=== PATIENT | male | born 1955 | race Hispanic/Latino ===

== ENCOUNTER 2023-05-13 05:03 | Inpatient (IN) | payer OTHER, SELFPAY ==
--- OUTSIDE RECORDS SUMMARY | 2023-05-13 05:05 | XMS REPORT | Continuity of Care Document ---
:[address] [facility] t Address [address] [place] [address] Care Team Providers Name Role Phone Jackson Montgomery Attending Clinician Unavailable Jackson Montgomery Admitting Clinician Unavailable Payers Payer Name Policy Type Policy Number Effective Date Expiration Date S ource Problems This patient has no known problems. Allergies, Adverse Reactions, Alerts This patient has no known allergies or adverse reactions. Medications This patient has no known medications. Procedures This patient has no known procedures. Encounters Start End Encounter Admission Attending Care Care Encounter Source Date/Time Date/Time Type Type Clinicians Facility Department ID 2020-08-15 Inpatient MARLIN Montgomery Arianne [id number] [facility] 13:00:00 [facility] 19 [facility] 2022-04-18 2022-04-18 Outpatient MARLIN Montgomery [id number] [facility] 15:27:00 15:27:00 [facility] 68 [facility] Results Test Description Test Time Test Comments Results Result [facility] e Comments - DUP EXTRACRANIAL 2020-08-15 [facility] 14:15:[address] [facility] : 1955 Sex: M Emmett bullock Name: JAYJAY SILVA Unit No: [id number] EXAMS: CPT: [id number] DUP EXTRACRANIAL CHARISSE 82058 BILATERAL CAROTID ARTERY ULTRASOUND AND DUPLEX IMAGING REPORT CONCLUSIONS: 1. Normal carotid artery ultrasound and spectrum analysis bilaterally. 2. There is no evidence of any significant areas of stenosis, and the spectrum analysis reveals no evidence of flow turbulence. 3. The vertebral artery flow is a normal antegrade pattern bilaterally. HISTORY AND INDICATIONS FOR THE STUDY: This study is performed for the evaluation of the presence and extent of carotid atherosclerotic disease. COMPARISON STUDY: No studies are available for comparison TECHNICAL NOTE: technologist development: Iris Johns RVT Following the Vascular Lab Protocol, real time ultrasound and color duplex imaging was performed to evaluate the Right and Left Carotid arteries. FINDINGS BY ULTRASOUND DUPLEX IMAGING AND SPECTRAL ANALYSIS: RIGHT CAROTID: 1. There are no measurable areas of stenosis in the right common carotid artery, right carotid bulb, or in the right internal carotid artery. 2. The spectrum analysis reveals no evidence of flow turbulence or hemodynamically significant lesions in the right carotid system. 3. The ICA/CCA velocity ratio is 0.7. LEFT CAROTID: 1. There are no measurable areas of stenosis in the left common carotid artery, the left carotid bulb, or in the left internal carotid artery. 2. The spectrum analysis reveals no evidence of flow turbulence or hemodynamically significant lesions in the left carotid system. 3. The ICA/CCA velocity ratio is 1.2. VERTEBRAL ARTERIES: Normal antegrade vertebral artery flow bilaterally. at 1415 Reported and signed by: LEON LI MD Name: JAYJAY SILVA [facility] Phys: Jackson Bernard MD [address] : 1955 Age: 65 Sex: M [place], [place] [address] Loc: N.[facility] Exam Date: 08/15/2020 Status: REG CLI PH: FAX: PAGE 1 Signed Report (CONTINUED) Patient Name: JAYJAY SILVA Unit No: [id number] EXAMS: CPT: [id number] DUP EXTRACRANIAL CHARISSE 35812 (Continued) CC: Jackson Montgomery MD Technologist: Iris Marquez Probe: Trscr Dt/Tm: 08/15/2020 (1415) by:QuianaHR Orig Print D/T: S: 08/15/2020 (1418) BATCH NO: N/A Name: JAYJAY SILVA [facility] Phys: Jackson Bernard MD [address] : 1955 Age: 65 Sex: M [place], [place] [address] Loc: N.N Exam Date: 08/15/2020 Status: REG CLI PH: FAX: PAGE 2 Signed Report
[2023-05-13 05:32] LABS: Absolute Lymphocytes (CBC) 2.1 K/uL (0.7-4.9); Hematocrit 44.5 % (39.6-49.0); Lymphocytes % 19.9 % (15.3-44.8); MPV 10.7 fL (7.6-11.3); Platelets 190 thou/uL (152-406); RBC Red Blood Cell Count 4.83 M/uL (4.33-5.43)
[2023-05-13] MEDS ORDERED: ASPIRIN 81 MG CHEWABLE TABLET ONE (05:32)
[2023-05-13] MEDS ORDERED: NITROGLYCERIN 0.4 MG/TAB SL ONE (05:32)
[2023-05-13 05:47] LABS: Albumin 3.6 g/dL (3.4-5.0); Bilirubin Direct 0.1 mg/dL (0-0.2); Bilirubin Indirect, Calculated 0.2 mg/dL (0.2-0.8); Bilirubin Total 0.3 mg/dL (0.2-1.0); Magnesium 1.8 mg/dL (1.6-2.4); Potassium 3.9 mEq/L (3.5-5.1); Protein, Total 7.3 g/dL (6.4-8.2); Troponin High Sensitivity 57.6 pg/mL (<58.9)
--- NOTE | 2023-05-13 06:28 | EDPHYS ---
Physician Documentation [facility] Name: Farhan Boyer Jr Age: 68 yrs Sex: Male : 1955 Arrival Date: 05/13/2023 Time: 05:03 Bed 8 Private MD: ED Physician Maynor Baires HPI: 05/13 05:45 This 68 yrs old Male presents to ER via Ambulatory with complaints of Chest rt Pain. 05:45 Patient presents to the ED with chest pain, substernal. Is been going on since about 10 rt PM, but, he states that is worsened today. The patient ports mild shortness of breath, denies other acute complaints at this time. Symptoms are moderate severity, aching nature, no other aggravating alleviating factors.. Historical: - Allergies: 05:16 No Known Allergies; vc1 - PMHx: 05:16 Diabetes - NIDDM; Hypertension; Hypothyroidism; Hypercholesterolemia; vc1 - PSHx: 05:16 None; vc1 - Immunization history:: Client reports receiving the 2nd dose of the Covid vaccine. - Social history:: Smoking status: Patient/guardian denies using tobacco, but has a distant history of tobacco abuse. - Family history:: not pertinent. ROS: 05:45 Constitutional: Negative for fever, chills, and weight loss, Abdomen/GI: Negative for rt abdominal pain, nausea, vomiting, diarrhea, and constipation. 05:45 Skin: Negative for injury, rash, and discoloration, Neuro: Negative for headache, weakness, numbness, tingling, and seizure, Psych: Negative for depression, anxiety, suicide ideation, homicidal ideation, and hallucinations. 05:45 Cardiovascular: Positive for chest pain, Negative for edema. 05:45 Respiratory: Positive for shortness of breath, Negative for cough. Exam: 05:45 Constitutional: This is a well developed, well nourished patient who is awake, alert, rt and in no acute distress. Head/Face: Normocephalic, atraumatic. Chest/axilla: Normal chest wall appearance and motion. Nontender with no deformity. No lesions are appreciated. Cardiovascular: Regular rate and rhythm with a normal S1 and S2. No gallops, murmurs, or rubs. Normal PMI, no JVD. No pulse deficits. Respiratory: Lungs have equal breath sounds bilaterally, clear to auscultation and percussion. No rales, rhonchi or wheezes noted. No increased work of breathing, no retractions or nasal flaring. Abdomen/GI: Soft, non-tender, with normal bowel sounds. No distension or tympany. No guarding or rebound. No evidence of tenderness throughout. Skin: Warm, dry with normal turgor. Normal color with no rashes, no lesions, and no evidence of cellulitis. MS/ Extremity: Pulses equal, no cyanosis. Neurovascular intact. Full, normal range of motion. Neuro: Awake and alert, GCS 15, oriented to person, place, time, and situation. Cranial nerves II-XII grossly intact. Motor strength 5/5 in all extremities. Sensory grossly intact. Cerebellar exam normal. Normal gait. Psych: Awake, alert, with orientation to person, place and time. Behavior, mood, and affect are within normal limits. 05:45 ECG was reviewed by the Attending Physician. Vital Signs: 05:14 BP 167 / 77; Pulse 69; Resp 14; Temp 98.2; Pulse Ox 100% ; Weight 107.5 kg; Height 5 vc1 ft. 7 in. ; Pain 7/10; 05:16 BP 167 / 77; Pulse 67; Resp 19; Pulse Ox 99% on R/A; kd3 05:27 BP 167 / 77; Pulse 66; Resp 16; Pulse Ox 98% on R/A; kd3 06:51 BP 143 / 63; Pulse 63; Resp 19; Pulse Ox 98% on R/A; kd3 08:59 BP 128 / 64; Pulse 61; Resp 18; Pulse Ox 95% on R/A; ld1 05:14 Body Mass Index 37.12 (107.50 kg, 170.18 cm) vc1 05:14 Pain Scale: Adult vc1 MDM: 05:16 Patient medically screened. rt 06:28 Differential diagnosis: abnormal EKG, acute myocardial infarction, pneumonia, rt pneumothorax. HEART Score: History: Highly Suspicious (2), ECG: Non specific repolarization disturbance / LBTB / PM (1), Age: > or = 65 years (2), Risk Factors: 1 or 2 risk factors (1), Troponin: < or = 1 x Normal Limit (0), Total Score = 6. The patient was given aspirin in the Emergency Department. Data reviewed: vital signs, nurses notes, lab test result(s), EKG, radiologic studies. Consideration of Admission/Observation Patient was admitted/placed on observation. Management of patient was discussed with the following: Hospitalist: Agrees to admit. I considered the following discharge prescriptions or medication management in the emergency department Medications were administered in the Emergency Department. See MAR. Independent interpretation of the following test(s) in the Emergency Department X-Ray: My interpretation is No consolidation seen on interpretation of the x-ray images. Test considered but Not performed: CT: Low suspicion for PE, CT angiogram not indicated. Care significantly affected by the following chronic conditions: Diabetes, Hypertension. Counseling: I had a detailed discussion with the patient and/or guardian regarding: the historical points, exam findings, and any diagnostic results supporting the discharge/admit diagnosis, lab results, radiology results, the need for further work-up and treatment in the hospital. Response to treatment: the patient's symptoms have markedly improved after treatment. 05/13 05:17 Order name: Basic Metabolic Panel; Complete Time: 05:48 rt 05/13 05:17 Order name: CBC with Diff; Complete Time: 05:48 rt 05/13 05:17 Order name: LFT's; Complete Time: 05:48 rt 05/13 05:17 Order name: Magnesium; Complete Time: 05:48 rt 05/13 05:17 Order name: NT PRO-BNP; Complete Time: 05:48 rt 05/13 05:17 Order name: Troponin HS; Complete Time: 05:48 rt 05/13 05:17 Order name: XRAY Chest (1 view) rt 05/13 05:17 Order name: EKG; Complete Time: 05:17 rt 05/13 05:17 Order name: Cardiac monitoring; Complete Time: 05:21 rt 05/13 05:17 Order name: EKG - Nurse/Tech; Complete Time: 05:21 rt 05/13 05:17 Order name: IV Saline Lock; Complete Time: 05: rt 05/13 05:17 Order name: Labs collected and sent; Complete Time: 05:24 rt 05/13 05:17 Order name: O2 Per Protocol; Complete Time: 05:21 rt 05/13 05:17 Order name: O2 Sat Monitoring; Complete Time: 05:21 rt EC:45 Rate is 69 beats/min. Rhythm is regular, Normal Sinus Rhythm with No ectopy. QRS [place] rt is Normal. WA interval is normal. QRS interval is normal. QT interval is normal. No Q waves. T waves are Normal. No ST changes noted. Interpreted by me. Administered Medications: 05:24 Drug: Aspirin PO Chewable Tablet 324 mg Route: PO; kd3 06:52 Follow up: Response: No adverse reaction kd3 05:27 Drug: Nitroglycerin Sublingual 0.4 mg Route: Sublingual; kd3 06:51 Follow up: Response: No adverse reaction; Pain is decreased kd3 Disposition Summary: 05/13/23 06:27 Hospitalization Ordered Hospitalization Status: Observation rt Provider: Tyler Means rt Location: Telemetry/MedSurg (observation) rt Condition: Stable rt Problem: new rt Symptoms: are resolved rt Bed/Room Type: Standard rt Room Assignment: 221(05/13/23 09:32) bd Diagnosis - Chest pain, unspecified rt Forms: - Medication Reconciliation Form rt - SBAR form rt - Leadership Thank You Letter rt Signatures: Dispatcher [employer] Emily Banda Kyli RN RN kd3 Alma Aguilar RN RN vc1 Maynor Baires MD MD rt Corrections: (The following items were deleted from the chart) 09:32 06:27 rt bd
--- NOTE | 2023-05-13 06:28 | ER ---
Nurse's Notes [facility] Name: Farhan Boyer Jr Age: 68 yrs Sex: Male : 1955 Arrival Date: 05/13/2023 Time: 05:03 Bed 8 Private MD: Diagnosis: Chest pain, unspecified Presentation: 05/13 05:14 Chief complaint: Patient states: I started having chest pain around 10:30 or 11 and vc1 it's just getting worse. It is a lot of pressure, it feels like something heavy is sitting on my chest. Coronavirus screen: Vaccine status: Patient reports receiving the 2nd dose of the covid vaccine. Plus one booster, [email or web address] Client denies travel out of the [place] in the last 14 days. At this time, the client does not indicate any symptoms associated with coronavirus-19. Ebola Screen: Patient negative for fever greater than or equal to 101.5 degrees Fahrenheit, and additional compatible Ebola Virus Disease symptoms Patient denies exposure to infectious person. Patient denies travel to an Ebola-affected area in the 21 days before illness onset. No symptoms or risks identified at this time. Initial Sepsis Screen: Does the patient meet any 2 criteria? No. Patient's initial sepsis screen is negative. Does the patient have a suspected source of infection? No. Patient's initial sepsis screen is negative. Risk Assessment: Do you want to hurt yourself or someone else? Patient reports no desire to harm self or others. Onset of symptoms was May 12, 2023 at 22:30. 05:14 Method Of Arrival: Ambulatory vc1 05:14 Acuity: SUE 3 vc1 Triage Assessment: 05:17 General: Appears distressed, uncomfortable, obese, Behavior is cooperative, appropriate vc1 for age. Pain: Complains of pain in mid-sternal area Pain radiates to neck Pain currently is 7 out of 10 on a pain scale. Quality of pain is described as Pain began gradually, 10:30-11:00 Is continuous, Noted to be grimacing, guarding, Also complains of nausea. EENT: No deficits noted. No signs and/or symptoms were reported regarding the EENT system. Neuro: Level of Consciousness is awake, alert, obeys commands, Oriented to person, place, time, situation, Appropriate for age. Cardiovascular: Reports chest pain, nausea, shortness of breath, Chest pain is described as severe, quality is heaviness, pressure. Respiratory: Reports shortness of breath. GI: No deficits noted. No signs and/or symptoms were reported involving the gastrointestinal system. : No deficits noted. No signs and/or symptoms were reported regarding the genitourinary system. Derm: No deficits noted. No signs and/or symptoms reported regarding the dermatologic system. Musculoskeletal: No deficits noted. No signs and/or symptoms reported regarding the musculoskeletal system. Historical: - Allergies: 05:16 No Known Allergies; vc1 - PMHx: 05:16 Diabetes - NIDDM; Hypertension; Hypothyroidism; Hypercholesterolemia; vc1 - PSHx: 05:16 None; vc1 - Immunization history:: Client reports receiving the 2nd dose of the Covid vaccine. - Social history:: Smoking status: Patient/guardian denies using tobacco, but has a distant history of tobacco abuse. - Family history:: not pertinent. Screenin:[facility] ED Fall Risk Assessment (Adult) History of falling in the last 3 months, vc1 including since admission No falls in past 3 months (0 pts) Confusion or Disorientation No (0 pts) Intoxicated or Sedated No (0 pts) Impaired Gait No (0 pts) Mobility Assist Device Used No (0 pt) Altered Elimination No (0 pt) Score/Fall Risk Level 0 - 2 = Low Risk Oriented to surroundings, Maintained a safe environment, Educated pt \\T\\ family on fall prevention, incl call for assistance when getting out of bed. Abuse screen: Denies threats or abuse. Nutritional screening: No deficits noted. Tuberculosis screening: No symptoms or risk factors identified. Assessment: 05:27 General: Appears uncomfortable, Behavior is calm, cooperative. Pain: Complains of pain kd3 in chest and mid-sternal area. Neuro: Level of Consciousness is awake, alert, obeys commands, Oriented to person, place, time, situation. Cardiovascular: Patient's skin is warm and dry. Respiratory: Airway is patent Trachea midline Respiratory effort is even, unlabored, Respiratory pattern is regular, symmetrical. 07:30 Reassessment: Patient appears in no apparent distress at this time. Patient and/or ph family updated on plan of care and expected duration. Pain level reassessed. Patient is alert, oriented x 3, equal unlabored respirations, skin warm/dry/pink. Patient denies pain at this time. 09:56 Reassessment: Called 2nd floor multiple times - no answer to phone. 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 Received nurse phone number, called RN. RN unavailable "Changing briefs at the moment." Will call again in 10 minutes. 10:14 Reassessment: Patient is alert, oriented x 3, equal unlabored respirations, skin ld1 warm/dry/pink. Vital Signs: 05:14 BP 167 / 77; Pulse 69; Resp 14; Temp 98.2; Pulse Ox 100% ; Weight 107.5 kg; Height 5 vc1 ft. 7 in. ; Pain 7/10; 05:16 BP 167 / 77; Pulse 67; Resp 19; Pulse Ox 99% on R/A; kd3 05:27 BP 167 / 77; Pulse 66; Resp 16; Pulse Ox 98% on R/A; kd3 06:51 BP 143 / 63; Pulse 63; Resp 19; Pulse Ox 98% on R/A; kd3 08:59 BP 128 / 64; Pulse 61; Resp 18; Pulse Ox 95% on R/A; ld1 05:14 Body Mass Index 37.12 (107.50 kg, 170.18 cm) vc1 05:14 Pain Scale: Adult vc1 ED Course: 05:03 Patient arrived in ED. ag3 05:04 Maynor Baires MD is Attending Physician. rt 05:16 Lilly Gonzalez, KEENAN is Primary Nurse. kd3 05:16 Triage completed. vc1 05:16 Inserted saline lock: 18 gauge in right antecubital area, using aseptic technique. kd3 Blood collected. 05:20 Arm band placed on right wrist. vc1 05:20 Patient has correct armband on for positive identification. Placed in gown. Bed in low vc1 position. Call light in reach. Adult w/ patient. Client placed on continuous cardiac and pulse oximetry monitoring. NIBP monitoring applied. 05:21 Patient maintains SpO2 saturation greater than 95% on room air. vc1 05:27 Basic Metabolic Panel Sent. kd3 05:27 CBC with Diff Sent. kd3 05:27 LFT's Sent. kd3 05:27 Magnesium Sent. kd3 05:27 NT PRO-BNP Sent. kd3 05:27 Troponin HS Sent. kd3 05:28 XRAY Chest (1 view) In Process Unspecified. EDMS 06:27 Tyler Means is Hospitalizing Provider. rt 09:15 Warm blanket given. mm9 10:14 No provider procedures requiring assistance completed. Patient admitted, IV remains in ld1 place. Administered Medications: 05:24 Drug: Aspirin PO Chewable Tablet 324 mg Route: PO; kd3 06:52 Follow up: Response: No adverse reaction kd3 05:27 Drug: Nitroglycerin Sublingual 0.4 mg Route: Sublingual; kd3 06:51 Follow up: Response: No adverse reaction; Pain is decreased kd3 Medication: 05:20 VIS not applicable for this client. vc1 Outcome: 06:27 Decision to Hospitalize by Provider. rt 10:14 Admitted to Med/surg accompanied by tech, via wheelchair, room 221. ld1 10:14 Condition: stable 10:14 Instructed on the need for admit. 10:19 Patient left the ED. ld1 Signatures: Dispatcher [employer] EDNJ Taisha Cotton RN RN Amara Yu ag3 Gloria Pantoja RN RN ld1 Lilly Gonzalez RN RN kd3 Alma Aguilar RN RN 1 Wendy Zepeda mm9 Maynor Baires MD MD rt
--- NOTE | 2023-05-13 08:10 | P.HP ---
Certification for Inpatient Patient admitted to: Observation With expected LOS: <2 Midnights Practitioner: I am a practitioner with admitting privileges, knowledge of patient current condition, hospital course, and medical plan of care. Services: Services provided to patient in accordance with Admission requirements found in Title 42 Section 412.3 of the Code of Federal Regulations Patient History Date of Service: 05/13/23 Reason for admission: Chest pressure History of Present Illness: 68-year-old gentleman with a history of hypertension, diabetes, hyperlipidemia and hypothyroidism presented to the emergency department with a complaint of chest pressure off onset and it this morning. Patient reports experiencing chest pressure, radiating to the throat of onset early this morning, denied chest pain, associated with shortness of breath, intensity about 5/10, relieved by sublingual nitroglycerin which was given in the ED. Initial troponin in the ED negative, EKG showed no ischemic changes, chest x-ray showed no acute disease. He reports significant family history of coronary artery disease. Patient with high risk factors for CAD. He was symptom-free during my e xamination for admission. Patient is placed on observation for ACS rule out. Allergies No Known Allergies Allergy (Unverified 02/18/15 14:20) Home Medications: Atorvastatin Calcium 1 tab PO DAILY 05/13/23 Cholecalciferol (Vitamin D3) [Dialyvite Vitamin D3 Max] 1 cap PO SEECOM 05/13/23 Empagliflozin [Jardiance] 1 tab PO DAILY 05/13/23 Furosemide 1 tab PO DAILY 05/13/23 Glimepiride 1 tab PO DAILY 05/13/23 Insulin Detemir [Levemir Flexpen] 5 units SQ DAILY 05/13/23 Levothyroxine Sodium 1 tab PO DAILY 05/13/23 Losartan Potassium 1 tab PO DAILY 05/13/23 Metformin HCl 1 tab PO BID 05/13/23 - Past Medical/Surgical History -: Hypertension -: DM type [id number] -: Hyperlipidemia -: Hypothyroidism - Family History Father -: Diabetes Mother -: Heart disease - Social History Smoking Status: Former smoker Alcohol use: No CD- Drugs: No Place of Residence: Home Review of Systems Other: Patient denied any cough or wheezing. He denied any fever. He denied abdominal pain or nausea vomiting or diarrhea. Except as documented, all other systems reviewed and negative. Physical Examination - Physical Exam General: Alert, In no apparent distress, Oriented x3, Obese HEENT: Mucous membr. moist/pink Neck: JVD not distended Respiratory: Clear to auscultation bilaterally, Normal air movement Cardiovascular: No edema, Normal pulses, Normal S1 S2 Capillary refill: <2 Seconds Gastrointestinal: Normal bowel sounds, Soft and benign, Non-distended, No tenderness Musculoskeletal: No swelling, No tenderness Integumentary: No rashes, No cyanosis Neurological: Normal speech, Normal strength at 5/5 x4 extr, Cranial nerves 3-12 intact Lymphatics: No axilla or inguinal lymphadenopathy - Studies Laboratory Data (last 24 hrs) 05/13/23 05/13/23 05:21 05:21 WBC 10.30 Hgb 14.6 Hct 44.5 Plt Count 190 Sodium 138 Potassium 3.9 BUN 18 Creatinine 0.95 Glucose 196 H Magnesium 1.8 Total Bilirubin 0.3 AST 16 ALT 24 Alkaline Phosphatase 120 H Assessment and Plan - Problems (Diagnosis) (1) Chest pain Current Visit: Yes Status: Acute (2) Essential hypertension Current Visit: Yes Status: Acute (3) Hyperlipidemia Current Visit: Yes Status: Acute (4) Diabetes mellitus type 2 in obese Current Visit: Yes Status: Acute (5) Hypothyroidism Current Visit: Yes Status: Acute - Plan Chest pain Typical chest pain. High CAD risk factors. Placed under observation on the medical floor Trend troponin Telemetry Obtain echocardiogram. Cardiology consult Stress test if troponin trend negative. Aspirin, metoprolol, Lipitor. NTG as needed. DM type II Insulin sliding scale Resume home dose Lantus insulin Hold metformin and glimepiride. Hold Jardiance for now. Essential hypertension/hypothyroidism Continue home medications. DVT prophylaxis: Lovenox. - Advance Directives Does patient have a Living Will: No Does patient have a Durable POA for Healthcare: No
[2023-05-13 10:47] VITALS: BMI 37.0
[2023-05-13] MEDS ORDERED: NITROGLYCERIN 0.4 MG/TAB SL PRN (10:47)
[2023-05-13] MEDS: ASPIRIN EC 81 MG TAB PO SCH (10:47)
[2023-05-13] MEDS ORDERED: MORPHINE 2 MG/ML SYR IV PRN (10:47)
[2023-05-13] MEDS ORDERED: ENOXAPARIN 40 MG/0.4 ML SQ SCH (10:47)
[2023-05-13] MEDS ORDERED: ACETAMINOPHEN 500 MG TAB PO PRN (10:47)
[2023-05-13] MEDS: INSULIN -REGULAR HUMAN 50 UNIT/0.5 ML ML SQ SCH ×3 (11:30→20:59)
[2023-05-13] MEDS ORDERED: PNEUMOCOCCAL VACCINE 0.5 ML IMVAC ONE (12:00)
[2023-05-13] MEDS: METOPROLOL TAR 25 MG TAB PO SCH ×2 (12:05→21:04)
--- NOTE | 2023-05-13 13:09 | EKG ---
Test Date: 2023-05-13 Test Time: 05:09:19 Heavy Duty Press Operator: KORINA MEASUREMENT RESULTS: Intervals: Rate: 69 KS: 138 QRSD: 80 QT: 372 QTc: 398 Buhl: P: 41 KS: 138 QRS: 42 T: 14 INTERPRETIVE STATEMENTS: Sinus rhythm with marked sinus arrhythmia Possible Left atrial enlargement Borderline ECG No previous ECG available for comparison Electronically Signed On 05-13-23 13:09:05 CDT by Parker Charlton
[2023-05-13] MEDS ORDERED: CHOLECALCIFEROL PO SCH (14:45)
--- NOTE | 2023-05-13 14:59 | RAD REPORT ---
EXAM DESCRIPTION: RAD - Chest Single View - 05/13/2023 5:26 am CLINICAL HISTORY: The patient is 68 years old and is Male; CHEST PAIN TECHNIQUE: Frontal view of the chest. COMPARISON: No relevant prior studies available. FINDINGS: Lungs: Unremarkable. No consolidation. Pleural space: Unremarkable. No pneumothorax. Heart: Unremarkable. Mediastinum: Unremarkable. Bones/joints: Unremarkable. IMPRESSION: No acute findings in the chest. Electronically signed by: Yrn Carpenetr MD 05/13/2023 5:35 AM CDT Due to temporary technical issues with the PACS/Fluency reporting system, reports are being signed by the in house radiologist without review as a courtesy to ensure prompt reporting. The interpreting r adiologist is fully responsible for the content of the report.
[2023-05-13 16:40] LABS: Troponin High Sensitivity 712.6 pg/mL (<58.9)
--- NOTE | 2023-05-13 19:45 | CON ---
Date of Consultation: 05/13/2023 Reason For Consultation: Non-ST elevation myocardial infarction. History Of Present Illness: A 68-year-old male, history diabetes, dyslipidemia, hypertension, presen heriberto to the emergency room with chest heaviness, started earlier this morning, felt nauseated, and the n some discomfort in the epigastrium area. Thought it was indigestion and then he felt significant h eaviness in his chest that radiated to his neck and his pain was relieved completely by nitroglycerin . The patient does not have any further chest pain since hospitalization, doing clinically well. Past Medical History: Diabetes, hypertension, dyslipidemia, hypothyroidism. Medications: Refer to reconciliation sheet for detailed list. Allergies: NO KNOWN DRUG ALLERGIES. Family History: No premature coronary artery disease or cancer. Social History: He does not smoke or drink. Does not use any drugs. Review of Systems: All systems reviewed and they were negative except what mentioned in HPI. Physical Examination: Vital Signs: Reviewed. Head and Neck: Pupils are equal, reactive to light. Intact eye movements. No JVD. No cervical lym phadenopathy. Neck is supple. Thyroid is not enlarged. Lungs: Clear to auscultation bilaterally. No rhonchi, wheezing, or crackles. No accessory muscle u se. Heart: Regular rate and rhythm. No extra sounds. Abdomen: Soft, nontender. Bowel sounds positive. No organomegaly. No masses or hernia. No rigidi ty or rebound. Extremities: No edema, clubbing, or cyanosis. Intact pulses. Skin: No rash. Neurologic: Alert, awake, oriented x3. No acute focal deficits appreciated. Investigations: Troponin initial one was 57, second one was 712. BUN 18, creatinine 0.95. Assessment And Recommendations: 1.Non-ST elevation myocardial infarction, typical; chest pain with elevated troponin. Chest pain is resolved now. Continue aspirin and Lovenox 1 mg/kg subcu q.12 hours, after tonight's dose to hold, planning for coronary angiogram tomorrow afternoon. Agree with beta-ronaldo and obtain an echo and c ontinue baby aspirin. 2.Hypertension. Blood pressure is controlled. Continue current management. 3.Diabetes. Start the patient on high potency statin like Lipitor 40 mg at bedtime and monitor jose armando garcía SR/MAYRA Voice ID: [id number] Report ID: [id number]
[2023-05-13] MEDS ORDERED: Enoxaparin 120 MG/0.8 ML SYR SQ SCH (21:00)
[2023-05-13] MEDS: ATORVASTATIN 40 MG TAB PO SCH (21:05)
[2023-05-14 05:03] LABS: Absolute Lymphocytes (CBC) 2.3 K/uL (0.7-4.9); Hematocrit 44.5 % (39.6-49.0); Lymphocytes % 18.9 % (15.3-44.8); MCV 91.9 fL (80-100); MPV 12.4 fL (7.6-11.3); Platelets 194 thou/uL (152-406); RBC Red Blood Cell Count 4.84 M/uL (4.33-5.43)
[2023-05-14 05:07] LABS: Potassium 3.7 mEq/L (3.5-5.1)
[2023-05-14] MEDS: LEVOTHYROXINE SOD 0.025 MG TAB PO SCH (06:04)
--- NOTE | 2023-05-14 07:20 | P.PN ---
Date of Service: 05/14/23 Subjective: Intermittent chest pain remains, improving no acute events overnight waiting for heart cath ROS: 10 point ROS as noted above, otherwise negative Physical Exam: GEN: Alert, oriented, NAD HEENT: Normal conjunctiva, sclera anicteric CV: Regular rate and rhythm, no edema Pulm: Nonlabored respirations on room air ABD: Soft, epigastric abdominal tenderness, nondistended, + ventral hernia Neuro: Normal speech, normal affect vitals reviewed Problem List: Chest pain Hypertension Hyperlipidemia Ventral hernia IDDM2 Hypothyroidism Chest pain High CAD risk factors. troponins elevated x3 - peak 2195 Monitor on telemetry Echo (05/13): 56% EF, mitral annular calcificaiton with mild MR, mild TR Cardiology consulted NPO for tentative heart cath today continue Aspirin, metoprolol, Lipitor. PRN nitroglycerin, PRN pain medication IDDM2 SSI. Resume home dose Lantus insulin Hold metformin and glimepiride. Hold Jardiance for now. Hypertension Hyperlipidemia Hypothyroidism ventral hernia Continue home medications. VTE: Lovenox Code: Full Dispo: Home in ~24hrs Pending heart cath today
--- NOTE | 2023-05-14 07:21 | ECHO ---
HEIGHT: 5 ft 7 in WEIGHT: 237 lb 0 oz DATE OF STUDY: 05/13/[address]: Tyler Means MD 2-DIMENSIONAL: YES M.MODE: YES DOPPLER: YES COLOR FLOW: YES TDS: PORTABLE: YES DEFINITY: BUBBLE STUDY: DIAGNOSIS: CHEST PAIN CARDIAC HISTORY: CATHERIZATION: SURGERY: PROSTHETIC VALVE: PACEMAKER: MEASUREMENTS (cm) DIASTOLIC (NORMALS) SYSTOLIC (NORMALS) IVSd 1.0 (0.6-1.2) LA Diam 3.7 (1.9-4.0) LVEF 56% LVIDd 4.6 (3.5-5.7) LVIDs 3.3 (2.0-3.5) %FS 29% LVPWd 1.0 (0.6-1.2) Ao Diam 2.9 (2.0-3.7) 2 DIMENSIONAL ASSESSMENT: RIGHT ATRIUM: NORMAL LEFT ATRIUM: NORMAL RIGHT VENTRICLE: NORMAL LEFT VENTRICLE: NORMAL TRICUSPID VALVE: MILD TRICUSPID REGURGITATION MITRAL VALVE: MITRAL ANNULAR CALCIFICATION WITH MILD MITRAL REGURGITATION PULMONIC VALVE: NORMAL AORTIC VALVE: NORMAL PERICARDIAL EFFUSION: NONE AORTIC ROOT: NORMAL LEFT VENTRICULAR WALL MOTION: NORMAL DOPPLER/COLOR FLOW: MILD MITRAL REGURGITATION. MILD TRICUSPID REGURGITATION COMMENTS: 1. NORMAL LEFT VENTRICULAR EJECTION FRACTION 55-60% 2. NORMAL WALL MOTION 3. MITRAL ANNULAR CALCIFICATION WITH MILD MITRAL REGURGITATION 4. MILD TRICUSPID REGURGITATION TECHNOLOGIST: STACEY VILLAGOMEZ
[2023-05-14] MEDS: INSULIN -REGULAR HUMAN 50 UNIT/0.5 ML ML SQ SCH ×4 (07:30→21:00)
[2023-05-14] MEDS: INSULIN GLARGINE 100 UNIT/ML SQ SCH (09:00)
[2023-05-14] MEDS ORDERED: INSULIN DETEMIR 100 UNIT/ML SQ SCH (09:00)
[2023-05-14] MEDS ORDERED: INSULN SQ SCH (09:00)
[2023-05-14 09:45] LABS: Protime INR 1.01
[2023-05-14] MEDS: ASPIRIN EC 81 MG TAB PO SCH (09:50)
[2023-05-14] MEDS: LOSARTAN POTASSIUM 50 MG TABLET PO SCH (09:50)
[2023-05-14] MEDS: METOPROLOL TAR 25 MG TAB PO SCH ×2 (09:50→21:00)
[2023-05-14] MEDS: FUROSEMIDE 20 MG TABLET PO SCH (10:35)
[2023-05-14] MEDS ORDERED: HEPA 1000U/500MLS 2,000 UNIT/1,000 ML BAG IV ONE (12:38)
[2023-05-14] MEDS ORDERED: LIDOCAINE 1% 20 ML MDV ONE (12:38)
[2023-05-14] MEDS ORDERED: FENTANYL CITR 100 MCG/2 ML ONE (12:41)
[2023-05-14] MEDS ORDERED: VERAPAMIL HCL 10 MG/4 ML VIAL IV ONE (12:42)
[2023-05-14] MEDS ORDERED: HEPARIN 5000 UNIT/ML 1 ML VIAL ONE (12:42)
[2023-05-14] MEDS ORDERED: MIDAZOLAM HCL 2 MG/2 ML INJ ONE (12:42)
[2023-05-14] MEDS ORDERED: HEPARIN 10,000 UNIT/10 ML VIAL IV ONE ×2 (12:42→15:36)
[2023-05-14] MEDS ORDERED: NITROGLYCERIN 100 MCG/ML SYR (for cath lab use only) IV ONE (12:43)
[2023-05-14] MEDS ORDERED: ATROPINE SULF 1 MG/10 ML SYR IV ONE (12:43)
[2023-05-14] MEDS ORDERED: NITROGLYCERIN/D5W 25 MG/250 ML BTL IV ONE (12:43)
[2023-05-14] MEDS ORDERED: CLOPIDOGREL 75 MG TABLET ONE (12:45)
[2023-05-14] MEDS ORDERED: TICAGRELOR 90 MG TABLET PO ONE (12:46)
[2023-05-14] MEDS ORDERED: ASPIRIN 325 MG TAB ONE (12:46)
[2023-05-14] MEDS ORDERED: NA CHLORIDE 0.9% 500 ML ONE (14:46)
--- NOTE | 2023-05-14 17:50 | PN ---
Date of Progress Note: 05/14/2023 Subjective: The patient was seen by bedside. Had no further episodes of chest pain since hospitaliz ation and his troponin peaked at 1159. Completely asymptomatic this morning with the exception of mi ld shortness of breath on exertion. Review of Systems: No chest pain. Positive shortness of breath, no exertion. No nausea, vomiting, diarrhea. No abdomi nal pain. No dysuria, polyuria, or urinary urgency. All other systems reviewed and they were negati ve. Physical Examination: Vital Signs: Reviewed. Head and Neck: Pupils are equal, reactive to light. Intact eye movements. No JVD. No cervical lym phadenopathy. Neck is supple. Thyroid is not enlarged. Lungs: Clear to auscultation bilaterally. No rhonchi, wheezing, or crackles. No accessory muscle u se. Heart: Regular rate and rhythm. No extra sounds. Abdomen: Soft, nontender. Bowel sounds positive. No organomegaly. No masses or hernia. No rigidi ty or rebound. Extremities: No edema, clubbing, or cyanosis. Intact pulses. Skin: No rash. Neurologic: Alert, awake, oriented x3. No acute focal deficits appreciated. Investigations: As outlined above, the troponin peaked at 1100 range. Assessment And Recommendations: 1.Non-ST elevation myocardial infarction. Coronary angiogram is planned for today and Braxton was eligio hernández. Continue aspirin, high-dose statin. 2.Heart failure, diastolic. Recommend low-dose diuretics, Lasix 40 mg daily and also to start low-d ose beta-ronaldo and low-dose JEAN-CLAUDE inhibitor due to the acute myocardial infarction. 3.Hypertension. Blood pressure is borderline elevated. Medication recommendation as outlined above . SR/MODL Voice ID: [id number] Report ID: [id number]
--- NOTE | 2023-05-14 18:05 | OP ---
Date of Procedure: 05/14/2023 Surgeon: CHANG VELÁZQUEZ Procedures Performed: 1.Selective coronary angiogram. 2.Left heart catheterization. 3.PCI for critical proximal LAD stenosis 99%, which is the culprit. I used 2.75 x 20 mm Synergy rosie g-eluting stent. Indication: Non-ST elevation myocardial infarction. Access: Right radial artery 6-Lao closed with TR band. Complications: None. Bleeding: Less than 50 mL. Description Of Procedure: After risks, benefits, alternatives were explained, the patient agreed to procedure and signed informed consent. The patient was brought into the cardiac catheterization [facility], prepped and draped in the usual sterile fashion. Then, I accessed right radial artery using pediatric micropuncture kit, placed 6-Lao Slender sheath and took 5-Lao Garrett 4.0 catheter into the aortic root, engaged the left main and could not engage the RCA. We then exchanged for a 6-Fren JR4 catheter and engaged the RCA, took standard views, and the catheter was pushed over the wire i nto the LV, measured the LVEDP and pullback did not record any gradient. Subsequently, we gave syste louis heparin to assure ACT level above 250 throughout the procedure. 180 Brilinta was given on the ta ble and the patient already was loaded with aspirin yesterday and given this morning. I took a 6-[facility] EBU3.5 guide with side holes into the aortic root and engaged the left main, took short Run-Throu gh wire into the left main, then the LAD and placed it distally in the LAD. Subsequently, I did a ba shannenon angioplasty using a 2.5 balloon to high pressure, vessel opened with SANTY-3 flow. It was a VERNA I-1 flow before the procedure and then I placed a 2.75 x 20 mm Synergy drug-eluting stent across the area of stenosis reducing the stenosis to 0% and re-establishing a SANTY-3 flow. After I removed the wire, final angiogram was satisfactory. Then, I removed the guide and removed the sheath, placed TR band with good hemostasis. During the exchange from the JR4 catheter to the EBU, the J-wire went into the LV and the patient had a very brief episode of ventricular fibrillation for less than 5 seconds. An unsynchronized 200 robbie les electrical cardioversion was performed and he converted immediately to sinus rhythm and the proce dure carried through without complications afterwards. The patient was sent to recovery in stable co ndition and has no symptoms. Findings: 1.Left main; it is normal, moderate size. 2.LAD; it is moderate size and tapers down to become small in the proximal segment before diagonal b ranches. There is an initially start at 80% stenosis and then 99% stenosis, status post successful b alloon angioplasty and PCI using 2.75 x 20 mm Synergy drug-eluting stent. The rest of the LAD is nor mal and the diagonal branch is normal. 3.Left circumflex is moderate size, normal. 4.RCA is the largest vessel probably vessel and dominant, has distal 30% to 40% stenosis. 5.LVEDP is slightly elevated at 18 mmHg. Conclusion: 1.Critical proximal LAD stenosis, which is the culprit of the IN, status post successful PCI as abov e. 2.Elevated LVEDP. 3.Moderate coronary artery disease elsewhere as above. Plan: 1.Brilinta, aspirin, and high-dose statin. 2.Recommend diuretics, Lasix for the next 24 hours and also start low-dose beta-ronaldo. SR/MODL Voice ID: [id number] Report ID: [id number]
[2023-05-14 18:20] VITALS: O2SAT 98
[2023-05-14] MEDS: ATORVASTATIN 40 MG TAB PO SCH (21:23)
[2023-05-14] MEDS ORDERED: TICAGRELOR 90 MG TABLET PO SCH (23:00)
[2023-05-15 03:48] LABS: Absolute Lymphocytes (CBC) 1.5 K/uL (0.7-4.9); Hematocrit 45.7 % (39.6-49.0); Lymphocytes % 14.7 % (15.3-44.8); MCV 91.4 fL (80-100); MPV 12.1 fL (7.6-11.3); Platelets 183 thou/uL (152-406)
[2023-05-15 03:55] LABS: Magnesium 1.7 mg/dL (1.6-2.4); Potassium 3.4 mEq/L (3.5-5.1)
[2023-05-15] MEDS: LEVOTHYROXINE SOD 0.025 MG TAB PO SCH (05:22)
[2023-05-15] MEDS ORDERED: CLOPIDOGREL 75 MG TABLET PO ONE ×2 (07:00→09:00)
[2023-05-15] MEDS: INSULIN -REGULAR HUMAN 50 UNIT/0.5 ML ML SQ SCH ×2 (07:30→12:28)
[2023-05-15] MEDS ORDERED: POTASSIUM CL SA 10 MEQ TAB PO ONE (08:18)
[2023-05-15] MEDS ORDERED: MAGNESIUM SULFATE 1 gm IVPB 1 GM/100 ML BAG IV ONE (08:18)
[2023-05-15] MEDS: FUROSEMIDE 20 MG TABLET PO SCH (09:13)
[2023-05-15] MEDS: INSULIN GLARGINE 100 UNIT/ML SQ SCH (09:13)
[2023-05-15] MEDS: ASPIRIN EC 81 MG TAB PO SCH (09:14)
[2023-05-15] MEDS: LOSARTAN POTASSIUM 50 MG TABLET PO SCH (09:14)
[2023-05-15] MEDS: METOPROLOL TAR 25 MG TAB PO SCH (09:14)
--- NOTE | 2023-05-15 10:32 | P.DS ---
Admission Date: 05/14/23 Discharge Date: 05/15/23 Disposition: ROUTINE DISCHARGE Discharge Condition: GOOD Reason for Admission: Chest pressure Consultations: Cardiology - Dr. Charlton Brief History of Present Illness: 68yo M, PMH: hypertension, diabetes, hyperlipidemia and hypothyroidism Patient presented to the emergency department with a complaint of chest pressure off onset and it this morning. Patient reports experiencing chest pressure, radiating to the throat of onset early this morning, denied chest pain, associated with shortness of breath, intensity about 5/10, relieved by sublingual nitroglycerin which was given in the ED. Initial troponin in the ED negative, EKG showed no ischemic changes, chest x-ray showed no acute disease. He reports significant family history of coronary artery disease. Patient with high risk factors for CAD. He was symptom-free during examination for admission. Hospital Course: Problem List: NSTEMI, 99% LAD stenosis, now s/p PCI Hypertension Hyperlipidemia Ventral hernia IDDM2 Hypothyroidism Patient presented with chest pain. EKG without ST elevation/acute changes. His troponin was noted to trend up consistent with NSTEMI. Cardiology was consulted, patient underwent cardiac catheterization on 05/14, which revealed critical proximal LAD stenosis (99%), and underwent successful stenting. Patient was monitored overnight without acute events, he reported feeling better, was deemed stable for discharge home. Medications: New: Plavix 75 mg daily Metoprolol 12.5 mg twice a day Changes: Atorvastatin increased to 40 mg Continue aspirin 81 mg daily Continue other home medications as previously prescribed Follow-up: Cardiology in ~1-2 weeks PCP within 1 week Physical Exam: GEN: Alert, oriented, NAD HEENT: Normal conjunctiva, sclera anicteric CV: Regular rate and rhythm, no edema Pulm: Nonlabored respirations on room air ABD: Soft, minimal epigastric abdominal tenderness, nondistended, +ventral hernia Neuro: Normal speech, normal affect Vital Signs/Physical Exam: Temp Pulse Resp BP Pulse Ox 97.5 F 56 18 131/61 95 05/15/23 08:00 05/15/23 08:00 05/15/23 08:00 05/15/23 08:00 05/15/23 08:00 Laboratory Data at Discharge: WBC 10.10 thou/uL (4.3-10.9) 05/15/23 02:27 Hgb 15.1 g/dL (13.6-17.9) 05/15/23 02:27 Hct 45.7 % (39.6-49.0) 05/15/23 02:27 Plt Count 183 thou/uL (152-406) 05/15/23 02:27 PT 11.1 SECONDS (9.5-12.5) 05/14/23 09:21 INR 1.01 05/14/23 09:21 APTT 34.2 SECONDS (24.3-36.9) 05/14/23 09:21 Sodium 138 mEq/L (136-145) 05/15/23 02:27 Potassium 3.4 mEq/L (3.5-5.1) L 05/15/23 02:27 BUN 15 mg/dL (7-18) 05/15/23 02:27 Creatinine 0.65 mg/dL (0.70-1.30) L 05/15/23 02:27 Glucose 110 mg/dL (74-106) H 05/15/23 02:27 Magnesium 1.7 mg/dL (1.6-2.4) 05/15/23 02:27 Total Bilirubin 0.3 mg/dL (0.2-1.0) 05/13/23 05:21 AST 16 U/L (15-37) 05/13/23 05:21 ALT 24 U/L (16-61) 05/13/23 05:21 Alkaline Phosphatase 120 U/L (45-117) H 05/13/23 05:21 Triglycerides 180 mg/dL (<150) H 05/13/23 15:19 Cholesterol 114 mg/dL (<200) 05/13/23 15:19 HDL Cholesterol 42 mg/dL (40-60) 05/13/23 15:19 Cholesterol/HDL Ratio 2.71 05/13/23 15:19 Home Medications: Cholecalciferol (Vitamin D3) [Dialyvite Vitamin D3 Max] 1 cap PO SEECOM 05/13/23 Empagliflozin [Jardiance] 1 tab PO DAILY 05/13/23 Furosemide 1 tab PO DAILY 05/13/23 Glimepiride 1 tab PO DAILY 05/13/23 Insulin Detemir [Levemir Flexpen] 5 units SQ DAILY 05/13/23 Levothyroxine Sodium 1 tab PO DAILY 05/13/23 Losartan Potassium 1 tab PO DAILY 05/13/23 Metformin HCl 1 tab PO BID 05/13/23 Latanoprostene Bunod [Vyzulta] 1 drop OPTH BEDTIME 05/14/23 Pilocarpine HCl 1 drop OPTH BID 05/14/23 Aspirin [Aspirin EC 81 MG] 81 mg PO DAILY 30 Days #30 tab 05/15/23 Atorvastatin Calcium [Lipitor] 40 mg PO BEDTIME 30 Days #30 tab 05/15/23 Clopidogrel Bisulfate [Plavix] 75 mg PO DAILY 30 Days #30 tab 05/15/23 Metoprolol Tartrate 0.5 tab PO BID 30 Days #30 tab 05/15/23 New Medications: Aspirin [Aspirin EC 81 MG] 81 mg PO DAILY 30 Days #30 tab Atorvastatin Calcium [Lipitor] 40 mg PO BEDTIME 30 Days #30 tab Metoprolol Tartrate 0.5 tab PO BID 30 Days #30 tab Clopidogrel Bisulfate [Plavix] 75 mg PO DAILY 30 Days #30 tab Physician Discharge Instructions: Patient presented with chest pain. EKG without ST elevation/acute changes. His troponin was noted to trend up consistent with NSTEMI. Cardiology was consulted, patient underwent cardiac catheterization on 05/14, which revealed critical proximal LAD stenosis (99%), and underwent successful stenting. Patient was monitored overnight without acute events, he reported feeling better, was deemed stable for discharge home. Medications: New: Plavix 75 mg daily Metoprolol 12.5 mg twice a day Changes: Atorvastatin increased to 40 mg Continue aspirin 81 mg daily Continue other home medications as previously prescribed Follow-up: Cardiology in ~1-2 weeks PCP within 1 week Followup: Luis Eduardo ELIZALDEOT [Primary Care Provider] - Time spent managing pt's care (in minutes): 45
[2023-05-15 14:28] VITALS: BP 110/61; TEMP 98
[2023-05-15] MEDS ORDERED: ONDANSETRON 4 MG/2 ML VIAL IV PRN (14:33)
[2023-05-26] MEDS ORDERED: DRISDOL (VITAMIN D=ERGOCALCIFEROL) 50000 UNIT CAP PO SCH (09:00)
== END 2023-05-15 16:30 | disposition home or self-care (01) | DRG 247 ==
LOC: ER 05:03 → ERHOLD 08:03 → 2ND 10:11 → OBSVTOIN 05-14 16:16
PROVIDERS: ADMIT Internal Medicine; ATTEND Hospitalist
PROC: 027034Z Dilation of Coronary Artery, One Artery with Drug-eluting Intraluminal Device, Percutaneous Approach (ICD-10-PCS; principal; 2023-05-14)
PROC: 4A023N7 Measurement of Cardiac Sampling and Pressure, Left Heart, Percutaneous Approach (ICD-10-PCS; 2023-05-14)
PROC: B2111ZZ Fluoroscopy of Multiple Coronary Arteries using Low Osmolar Contrast (ICD-10-PCS; 2023-05-14)
DX: I21.4 Non-ST elevation (NSTEMI) myocardial infarction (principal); I50.30 Unspecified diastolic (congestive) heart failure; I11.0 Hypertensive heart disease with heart failure; E11.9 Type 2 diabetes mellitus without complications; E03.9 Hypothyroidism, unspecified; E66.9 Obesity, unspecified; K43.9 Ventral hernia without obstruction or gangrene; E78.00 Pure hypercholesterolemia, unspecified; Z79.4 Long term (current) use of insulin; Z68.37 Body mass index [BMI] 37.0-37.9, adult; Z79.02 Long term (current) use of antithrombotics/antiplatelets; Z79.82 Long term (current) use of aspirin; Z79.84 Long term (current) use of oral hypoglycemic drugs; Z79.899 Other long term (current) drug therapy; Z87.891 Personal history of nicotine dependence
CPT/HCPCS: 36415; 71045; 76937; 80048; 80061; 80076; 82947; 83735; 83880; 84132; 84484; 85025; 85347; 85610; 85730; 93005; 93306; 93458; 99285; C1725; C1893; C9600; J0461; J1644; J1650; J1815; J2001; J2250; J2270; J2405; J3010; J3475; J7040; Q9967

== ENCOUNTER 2023-06-13 17:02 | Emergency (ER) | payer OTHER ==
--- OUTSIDE RECORDS SUMMARY | 2023-06-13 17:08 | XMS REPORT | Continuity of Care Document ---
:1955 Author Organization [facility] t Address [address] [place] [address] Care Team Providers Name Role Phone Jackson [...] Department ID 2020-08-15 Inpatient MARLIN Montgomery Arianne [id number] [facility] 13:00:00 Jackson 19 [facility] 2022-04-18 2022-04-18 Outpatient MARLIN Montgomery [id number] [facility] 15:27:00 15:27:00 [facility] [address] [facility] Results Test Description Test Time Test Comments Results Result [facility] e Comments - DUP EXTRACRANIAL 2020-08-15 [facility] 14:15:00 [facility] : 1955 Sex: M Emmett tient Name: JAYJAY SILVA Unit No: [id number] EXAMS: CPT: [id number] DUP EXTRACRANIAL CHARISSE 16807 BILATERAL CAROTID ARTERY ULTRASOUND AND DUPLEX IMAGING [...] studies are available for comparison TECHNICAL NOTE: cytotechnologist/histotechnologist: Iris Johns RVT Following the Vascular Lab [...] by: LEON LI MD Name: JAYJAY SILVA [facility] Phys: Jackson Bernard MD [address] : 1955 Age: 65 Sex: M [place], [place] [address] Loc: N.USN Exam Date: 08/15/2020 Status: REG CLI PH: FAX: PAGE 1 Signed Report (CONTINUED) Patient Name: JAYJAY SILVA Unit No: [id number] EXAMS: CPT: [id number] DUP EXTRACRANIAL CHARISSE 52523 (Continued) CC: Jackson Montgomery MD Technologist: Iris Marquez Probe: Trscr Dt/Tm: 08/15/2020 (1415) by:QuianaHR Orig Print D/T: S: 08/15/2020 (1418) BATCH NO: N/A Name: JAYJAY SILVA [facility] Phys: Jackson Bernard MD [address] [facility] : 1955 Age: 65 Sex: M [place], [place] [address] Loc: N.USN Exam Date: 08/15/2020 Status: REG CLI PH: FAX: PAGE 2 Signed Report
--- NOTE | 2023-06-13 17:28 | ER ---
Nurse's Notes [facility] Name: Farhan Boyer Jr Age: 68 yrs Sex: Male : 1955 Arrival Date: 06/13/2023 Time: 17:02 Bed IW1 Private MD: Diagnosis: Cutaneous abscess of groin;Candidiasis, unspecified Presentation: 06/13 17:12 Chief complaint: Patient states: started like it was a boil and I busted it and now it ko1 really itches and is red. Coronavirus screen: At this time, the client does not indicate any symptoms associated with coronavirus-19. Ebola Screen: No symptoms or risks identified at this time. Initial Sepsis Screen: Does the patient meet any 2 criteria? No. Patient's initial sepsis screen is negative. Does the patient have a suspected source of infection? No. Patient's initial sepsis screen is negative. Risk Assessment: Do you want to hurt yourself or someone else? Patient reports no desire to harm self or others. Onset of symptoms was June 13, 2023. 17:12 Method Of Arrival: Ambulatory ko1 17:12 Acuity: SUE 3 ko1 Triage Assessment: 17:16 General: Appears in no apparent distress. Behavior is calm, cooperative, appropriate ko1 for age. Pain: Complains of pain in left femoral area. Historical: - Allergies: 17:16 No Known Allergies; ko1 - PMHx: 17:16 Diabetes - NIDDM; Hypercholesterolemia; Hypertension; Hypothyroidism; ko1 - PSHx: 17:16 Stented artery; ko1 - Immunization history:: Adult Immunizations up to date. - Social history:: Smoking status: Patient/guardian denies using tobacco, the patient reports quitting approximately 20 years ago. Screenin:23 [facility] ED Fall Risk Assessment (Adult) History of falling in the last 3 months, ko1 including since admission No falls in past 3 months (0 pts) Confusion or Disorientation No (0 pts) Intoxicated or Sedated No (0 pts) Impaired Gait No (0 pts) Mobility Assist Device Used No (0 pt) Altered Elimination No (0 pt) Score/Fall Risk Level 0 - 2 = Low Risk Oriented to surroundings, Maintained a safe environment, Educated pt \T\ family on fall prevention, incl call for assistance when getting out of bed, Assessed \T\ reinforced patient's understanding of fall precautions, Provided non-skid footwear, Hourly rounding (assess needs \T\ fall precautionary measures) done, Used ambulatory aids as needed (educated on \T\ assisted with), Used gait belt as appropriate. Abuse screen: Denies threats or abuse. Denies injuries from another. Nutritional screening: No deficits noted. Tuberculosis screening: No symptoms or risk factors identified. Assessment: 17:23 Neuro: No deficits noted. Cardiovascular: No deficits noted. Respiratory: No deficits ko1 noted. GI: No deficits noted. : No deficits noted. EENT: Reports blurred vision. Derm: Wound noted left femoral area Rash noted that is red, on left femoral area Bruising that is dark purple, on left femoral area. Musculoskeletal: No deficits noted. Vital Signs: 17:12 BP 151 / 70; Pulse 60; Resp 18; Temp 98.2; Pulse Ox 97% ; ko1 17:39 BP 148 / 72; Pulse 62; Resp 16; Pulse Ox 99% ; ko1 ED Course: 17:08 Patient arrived in ED. ts1 17:14 Misty Carter PA-C is PHCP. sb4 17:14 Maynor Baires MD is Attending Physician. sb4 17:16 Triage completed. ko1 17:16 Arm band placed on right wrist. Patient placed Patient notified of wait time. ko1 17:23 Patient has correct armband on for positive identification. Provided Education on: na. ko1 17:23 No provider procedures requiring assistance completed. Patient did not have IV access ko1 during this emergency room visit. 17:28 Jaymie Prado RN is Primary Nurse. ko1 Administered Medications: No medications were administered Medication: 17:23 VIS not applicable for this client. ko1 Outcome: 17:28 Discharge ordered by . sb4 17:39 Discharged to home ambulatory, with family. ko1 17:39 Condition: stable 17:39 Discharge instructions given to patient, family, Instructed on discharge instructions, follow up and referral plans. medication usage, Demonstrated understanding of instructions, follow-up care, medications, Prescriptions given X 2. 17:40 Patient left the ED. ko1 Signatures: Jaymie Prado RN RN ko1 Misty Carter PA-C PA-C sb4 Lidia Dutton PAS PAS ts1 Corrections: (The following items were deleted from the chart) 17:17 17:16 Social history: Smoking status: Patient denies any tobacco usage or history of. ko1 ko1
--- NOTE | 2023-06-13 17:28 | EDPHYS ---
Physician Documentation [facility] Name: Farhan Boyer Jr Age: 68 yrs Sex: Male : 1955 Arrival Date: 06/13/2023 Time: 17:02 Bed IW1 Private MD: ED Physician Maynor Baires HPI: 06/13 18:37 This 68 yrs old Male presents to ER via Ambulatory with complaints of abscess. sb4 18:38 The patient presents with an abscess of the left femoral area. Description: The sb4 affected area is small, confluent. 18:38 Onset: The symptoms/episode began/occurred 2 day(s) ago. Possible cause(s): unknown. sb4 Associated signs and symptoms: Pertinent positives: drainage, erythema, Pertinent negatives: fever. Modifying factors: the symptoms are alleviated by nothing, the symptoms are aggravated by nothing. patient states he noticed a "boil" in his left inguinal crease about 2 days ago. he popped it and had a small amount of drainage. he states that it is no longer draining but the redness and pain has increased and it is very itchy. Historical: - Allergies: 17:16 No Known Allergies; ko1 - PMHx: 17:16 Diabetes - NIDDM; Hypercholesterolemia; Hypertension; Hypothyroidism; ko1 - PSHx: 17:16 Stented artery; ko1 - Immunization history:: Adult Immunizations up to date. - Social history:: Smoking status: Patient/guardian denies using tobacco, the patient reports quitting approximately 20 years ago. ROS: 18:38 Constitutional: Negative for fever, chills, and weight loss. sb4 18:38 Skin: Positive for abscess, cellulitis, swelling, of the left femoral area. 18:38 All other systems are negative. Exam: 18:38 Constitutional: This is a well developed, well nourished patient who is awake, alert, sb4 and in no acute distress. Head/Face: Normocephalic, atraumatic. Eyes: Extra-ocular motions intact. Periorbital areas with no swelling, redness, or edema. ENT: Mucous membranes moist. MS/ Extremity: Pulses equal, no cyanosis. Neurovascular intact. Full, normal range of motion. Neuro: Awake and alert, GCS 15, oriented to person, place, time, and situation. Cranial nerves II-XII grossly intact. Motor strength 5/5 in all extremities. Sensory grossly intact. Cerebellar exam normal. Normal gait. 18:38 Skin: abscess, that is small, of the left femoral area, with surrounding cellulitis, that is mild, cellulitis, that is minimal, induration, that is mild is noted. Vital Signs: 17:12 BP 151 / 70; Pulse 60; Resp 18; Temp 98.2; Pulse Ox 97% ; ko1 17:39 BP 148 / 72; Pulse 62; Resp 16; Pulse Ox 99% ; ko1 MDM: 17:14 Patient medically screened. sb4 18:38 Differential diagnosis: abscess, allergic reaction, cellulitis, insect bite. Data sb4 reviewed: vital signs, nurses notes, and as a result, I will discharge patient. Care significantly affected by the following chronic conditions: Diabetes, Hypertension. Counseling: I had a detailed discussion with the patient and/or guardian regarding the historical points, exam findings, and any diagnostic results supporting the discharge/admit diagnosis, to return to the emergency department if symptoms worsen or persist or if there are any questions or concerns that arise at home. Special discussion: I discussed in detail with the patient the higher chance of wound infection based on his presenting history. ED course: abscess has already opened and drained, no need for I\\T\\D. bruising secondary to squeezing area and being on plavix. mild cellulitus- bacterial vs fungal given the inguinal fold and itchiness. will prescribe antibiotics and antifungals. return precautions given. Administered Medications: No medications were administered Disposition: 19:48 Co-signature as Attending Physician, Maynor Baires MD I reviewed the patient's care rt provided by the Advanced Practice Provider and agree with the diagnosis and treatment plan. Disposition Summary: 06/13/23 17:28 Discharge Ordered Location: Home sb4 Problem: an ongoing problem sb4 Symptoms: are unchanged sb4 Condition: Stable sb4 Diagnosis - Cutaneous abscess of groin sb4 - Candidiasis, unspecified sb4 Followup: sb4 - With: Private Physician - When: As needed - Reason: Recheck today's complaints, Continuance of care, Re-evaluation by your physician Discharge Instructions: - Discharge Summary Sheet sb4 - Skin Abscess, [id number] sb4 Forms: - Medication Reconciliation Form sb4 - Thank You Letter sb4 - Antibiotic Education sb4 - Prescription Opioid Use sb4 - Patient Portal Instructions sb4 - Leadership Thank You Letter sb4 Prescriptions: - ketoconazole 200 mg Oral tablet - take 1 tablet by ORAL route daily; 7 tablet; Refills: 0, Product Selection sb4 Permitted - Bactrim DS 800-160 mg Oral Tablet - take 1 tablet by ORAL route every 12 hours for 7 days; 14 tablet; Refills: 0, sb4 Product Selection Permitted Signatures: Jaymie Prado RN RN ko1 Misty Carter PA-C PA-C sb4 Maynor Baires MD MD rt Corrections: (The following items were deleted from the chart) 17:17 17:16 Social history: Smoking status: Patient denies any tobacco usage or history of. ko1 ko1
[2023-06-13 17:45] VITALS: TEMP 98.2
[2023-06-13 17:46] VITALS: BP 148/72; O2SAT 99
== END 2023-06-13 17:40 | disposition home or self-care (01) ==
LOC: ER 17:02
DX: L02.214 Cutaneous abscess of groin (principal); L03.314 Cellulitis of groin; B37.9 Candidiasis, unspecified
CPT/HCPCS: 99283

== ENCOUNTER 2023-11-12 07:09 | Day surgery (SDC) | payer OTHER ==
[2023-11-05 15:21] LABS: Protime INR 1.08
[2023-11-05 15:24] LABS: Absolute Lymphocytes (CBC) 1.5 K/uL (0.7-4.9); Hematocrit 43.3 % (39.6-49.0); Lymphocytes % 13.5 % (15.3-44.8); MPV 10.4 fL (7.6-11.3); Platelets 225 thou/uL (152-406); RBC Red Blood Cell Count 4.75 M/uL (4.33-5.43)
--- NOTE | 2023-11-05 15:24 | RAD REPORT ---
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 COMPARISON: Chest Single View dated 05/13/2023 TECHNIQUE: PA and lateral views of the chest were obtained. FINDINGS: The lungs are hyperexpanded compatible with COPD. The heart is upper limit of normal in si ze. No fracture or aggressive bony process. IMPRESSION: COPD without acute process identified. The USPSTF recommends annual screening for lung cancer with low-dose CT (LDCT) in adults aged 50 to 80 years who have a 20 pack-year smoking history and currently smoke or have quit within the past 15 years.
[2023-11-05 15:30] LABS: Potassium 4.2 mEq/L (3.5-5.1)
--- NOTE | 2023-11-06 16:42 | EKG ---
Test Date: 2023-11-05 Test Time: 16:01:32 Assembly Line Upholsterer: AUBREY MEASUREMENT RESULTS: Intervals: Rate: 62 AR: 94 QRSD: 98 QT: 412 QTc: 418 Ramah: P: -43 AR: 94 QRS: 10 T: -17 INTERPRETIVE STATEMENTS: Unusual P axis, possible ectopic atrial rhythm Minimal voltage criteria for LVH, may be normal variant T wave abnormality, consider inferior ischemia Abnormal ECG Compared to ECG 05/13/2023 05:09:19 Left ventricular hypertrophy now present T-wave abnormality now present Possible ischemia now present Sinus rhythm no longer present Sinus arrhythmia no longer present Electronically Signed On 11-06-23 16:41:01 RECEIVING TEAM MEMBER by Jose Childs
[2023-11-12] MEDS ORDERED: HEPA 1000U/500MLS 2,000 UNIT/1,000 ML BAG IV ONE (07:13)
[2023-11-12] MEDS ORDERED: LIDOCAINE 1% 20 ML MDV ONE (07:13)
[2023-11-12] MEDS ORDERED: FENTANYL CITR 100 MCG/2 ML ONE (07:13)
[2023-11-12] MEDS ORDERED: MIDAZOLAM HCL 2 MG/2 ML INJ ONE (07:14)
[2023-11-12] MEDS ORDERED: ATROPINE SULF 1 MG/10 ML SYR IV ONE (07:15)
[2023-11-12] MEDS ORDERED: NA CHLORIDE 0.9% 500 ML ONE (07:29)
[2023-11-12 07:46] VITALS: O2SAT 100
--- NOTE | 2023-11-12 08:35 | OP ---
Date of Procedure: 11/12/2023 Surgeon: CHANG VELÁZQUEZ Procedure Performed: Bilateral selective carotid angiogram. Indication: Carotid stenosis. Access: Right femoral artery 4-Argentine, closed with manual pressure. Complications: None. Bleeding: Less than 20 mL. Anesthesia: Total sedation time was 15 minutes. Description Of Procedure: After risks, benefits, alternatives were explained, patient agreed to proc eed and signed informed consent. The patient was brought into the cardiac catheterization laboratory , prepped and draped in usual sterile fashion. Then, I accessed right femoral artery using micropunc ture kit, ultrasound guidance, and fluoroscopy, placed a 4-Argentine [place] sheath and took 4-Argentine 3 DRC catheter into the aortic root over a J-wire, engaged the right common carotid artery, took standa rd views and then the left common carotid artery, took standard views, and then removed the catheter and the sheath. Manual pressure was used for closure. Good hemostasis. Findings: 1.Right common carotid is normal. Right internal carotid is with 20% to 30% proximally and the righ t external carotid has approximately 50% stenosis. 2.Left common carotid, proximal and mid are normal. Distal is 80% stenosis, extending to left inter nal carotid artery, ranging between 80% and 90% stenosis. Conclusion: Severe left common and internal carotid artery stenosis. Plan: Left carotid artery endarterectomy as soon as possible. /MODL Voice ID: [id number] Report ID: [id number]
[2023-11-12 11:39] VITALS: BP 140/90
== END 2023-11-12 11:29 | disposition home or self-care (01) ==
LOC: CCL 07:09
PROVIDERS: ATTEND Internal Medicine
DX: I65.23 Occlusion and stenosis of bilateral carotid arteries (principal); I25.10 Atherosclerotic heart disease of native coronary artery without angina pectoris; I10 Essential (primary) hypertension; E78.2 Mixed hyperlipidemia; E11.9 Type 2 diabetes mellitus without complications; E03.9 Hypothyroidism, unspecified; Z87.891 Personal history of nicotine dependence; Z79.84 Long term (current) use of oral hypoglycemic drugs; Z79.02 Long term (current) use of antithrombotics/antiplatelets; Z79.899 Other long term (current) drug therapy
CPT/HCPCS: 93005; 85025; 80048; 36415; 83721; 85610; 82947; 85730; 71046; 36215; 36222; 76937; C1893; J2001; J2250; J3010; J7040; 99152; 99153; J0461

== ENCOUNTER → 2023-11-14 | Emergency (ER) | payer OTHER ==
--- OUTSIDE RECORDS SUMMARY | 2023-11-14 13:10 | XMS REPORT | Continuity of Care Document ---
Author Name Unknown Address [address] [place] [address] [facility] thconnect Address [address] [place] [address] Care Team Providers Care Manager Media Name Role Phone Jackson Montgomery Attending Clinician Unavailable Jackson Montgomery Admitting Clinician Unavailable Payers Payer Name Policy Type Policy Number Effective Date Expirati on Date Source Encounters Start Date/Time End Date/Time Encounter Type Admission Type Attending Clinicians Care Facility Care Department Encounter ID Source 2020-08-15 13:00:00 Inpatient EL [facility] [id number] 2022-04-18 15:27:00 2022-04-18 15:27:00 Outpatient Jackson Montgomery [facility] [id number] [facility] [address] [facility] Results Test Description Test Time Test Comments Results Resul t Comments Source - DUP EXTRACRANIAL CHARISSE 2020-08-15 14:15:00 [facility] 1955 Sex: M Emmett heydint Name: JAYJAY SILVA Unit No: [id number] EXAMS: CPT: [id number] DUP EXTRACRANIAL CHARISSE 05600 BILATERAL CAROTID ARTERY ULTRASOUND AND DUPLEX IMAGING [...] studies are available for comparison TECHNICAL NOTE: textile technologist: Iris Johns RVT Following the Vascular Lab [...] by: LEON LI MD Name: JAYJAY SILVA [facility] Phys: Jackson Bernard MD [address] : 1955 Age: 65 Sex: M [place], [place] [address] Loc: N.N Exam Date: 08/15/2020 Status: REG CLI PH: FAX: PAGE 1 Signed Report (CONTINUED) Patient Name: JAYJAY SILVA Unit No: [id number] EXAMS: CPT: [id number] DUP EXTRACRANIAL CHARISSE 37163 (Continued) CC: Jackson Montgomery MD Technologist: Iris Marquez Probe: Trscr Dt/Tm: 08/15/2020 (1415) by:QuianaHR Orig Print D/T: S: 08/15/2020 (1418) BATCH NO: N/A Name: JAYJAY SILVA [facility] Phys: Jackson Bernard MD [address] : 1955 Age: 65 Sex: M [place], [place] [address] Loc: N.USN Exam Date: 08/15/2020 Status: REG CLI PH: FAX: PAGE 2 Signed Report
--- NOTE | 2023-11-14 14:23 | RAD REPORT ---
EXAM DESCRIPTION: RAD - Chest Single View - 11/14/2023 2:05 pm CLINICAL HISTORY: COUGH Chest pain. COMPARISON: Chest Pa And Lat (2 Views) dated 11/05/2023; Chest Single View dated 05/13/2023 FINDINGS: Portable technique limits examination quality. The lungs are mildly emphysematous but grossly clear. The heart is normal in size. No displaced fract ures. IMPRESSION: No acute intrathoracic process suspected.
[2023-11-14 14:26] LABS: Absolute Lymphocytes (CBC) 1.2 K/uL (0.7-4.9); Hematocrit 44.7 % (39.6-49.0); Lymphocytes % 15.1 % (15.3-44.8); MCV 91.2 fL (80-100); MPV 9.6 fL (7.6-11.3); Platelets 241 thou/uL (152-406)
[2023-11-14 14:32] LABS: Protime INR 1.09
[2023-11-14 14:44] LABS: Albumin 3.7 g/dL (3.4-5.0); Bilirubin Total 0.6 mg/dL (0.2-1.0); Protein, Total 7.9 g/dL (6.4-8.2)
--- NOTE | 2023-11-14 14:46 | EDPHYS ---
Physician Documentation [facility] Name: Farhan Boyer Jr Age: 68 yrs Sex: Male : 1955 Arrival Date: 11/14/2023 Time: 13:06 Bed 14 Private MD: ED Physician Javi Bowles HPI: 11/14 13:46 This 68 yrs old Male presents to ER via Ambulatory with complaints of Coughing ec2 up blood. 13:46 Patient arrives today for evaluation of hemoptysis. Patient been having cough for the ec2 past week, for prompted evaluation today is that he had bouts of blood-tinged sputum. No fevers or chills, no nausea or vomiting, no issues with p.o. intake, was a previous smoker, stopped approximately 15 years ago.. Historical: - Allergies: 13:11 No Known Allergies; ll1 - PMHx: 13:11 Diabetes - NIDDM; Hypercholesterolemia; Hypertension; Hypothyroidism; ll1 - PSHx: 13:11 Stented artery; ll1 13:42 carotid SX; ll1 - Immunization history:: Adult Immunizations up to date. - Social history:: Smoking status: Patient/guardian denies using tobacco. ROS: 13:46 Constitutional: as per hpi ec2 Exam: 13:46 Constitutional: GEN: NAD Head: atraumatic Eyes: EOMI Ears: External ears are ec2 normal. CV: regular rate LUNGS: no respiratory distress ABD: non-distended SKIN: no evidence of rashes MSK: no evidence of trauma NEURO: moves all extremities equally Vital Signs: 13:40 BP 151 / 91; Pulse 66; Resp 18; Temp 98.6; Pulse Ox 100% on R/A; ll1 15:01 BP 155 / 96; Pulse 70; Resp 18; Pulse Ox 99% on R/A; rs5 MDM: 13:44 Patient medically screened. ec2 13:46 Data reviewed: vital signs. ED course: Patient arrives today for URI signs symptoms and ec2 hemoptysis. Examination remarkable for well-appearing nontoxic individual is otherwise in no acute distress. Will obtain lab work, chest x-ray. Currently suspect bronchitis, viral, causing the patient's hemoptysis. Suspicion for PE, low suspicion for dissection, suspicion for mass.. 14:43 ED course: CBC without anemia, coagulation profile is unremarkable, chest x-ray shows ec2 no acute intrathoracic process. Pending metabolic profile. . 14:45 ED course: Metabolic profile reassuring, reassessment patient is well-appearing without ec2 hypoxia or increased work of breathing. Suspect bronchitis causing patient's symptoms. Will discharge home. Return precautions given.. 11/14 13:45 Order name: CBC with Diff; Complete Time: 14:43 ec2 11/14 13:45 Order name: CMP; Complete Time: 14:45 ec2 11/14 13:45 Order name: PT-INR; Complete Time: 14:43 ec2 11/14 13:45 Order name: Ptt, Activated; Complete Time: 14:43 ec2 11/14 13:45 Order name: CXR XRAY; Complete Time: 14:43 ec2 Administered Medications: No medications were administered Disposition Summary: 11/14/23 14:45 Discharge Ordered Notes: Location: Home ec2 Condition: Stable ec2 Diagnosis - Hemoptysis ec2 Followup: ec2 - With: Private Physician - When: - Reason: Recheck today's complaints Discharge Instructions: - Discharge Summary Sheet ec2 - Hemoptysis ec2 Forms: - Medication Reconciliation Form ec2 - Thank You Letter ec2 - Antibiotic Education ec2 - Prescription Opioid Use ec2 - Patient Portal Instructions ec2 - Leadership Thank You Letter ec2 Signatures: Dispatcher [employer] Olivia Daugherty RN RN ll1 Javi Bowles MD MD ec2 Corrections: (The following items were deleted from the chart) 13:42 13:35 Social history: Smoking status: Patient denies any tobacco usage or history of. av1 ll1
--- NOTE | 2023-11-14 14:46 | ER ---
Nurse's Notes [facility] Name: Farhan Boyer Jr Age: 68 yrs Sex: Male : 1955 Arrival Date: 11/14/2023 Time: 13:06 Bed 14 Private MD: Diagnosis: Hemoptysis Presentation: 11/14 13:35 Chief complaint: Patient states: Cough for about 1 week, coughing up blood today so PCP ll1 sent him in for evaluation. No fever. Coronavirus screen: Vaccine status: Patient reports receiving the 2nd dose of the covid vaccine. Client denies travel out of the [place] in the last 14 days. cough unrelated to allergies. Ebola Screen: Patient denies travel to an Ebola-affected area in the 21 days before illness onset. Initial Sepsis Screen: Does the patient meet any 2 criteria? No. Patient's initial sepsis screen is negative. Does the patient have a suspected source of infection? Yes: Productive cough/pneumonia. Risk Assessment: Do you want to hurt yourself or someone else? Patient reports no desire to harm self or others. 13:35 Method Of Arrival: Ambulatory [facility] 13:35 Acuity: SUE 3 [facility] 13:40 Onset of symptoms. [facility] Triage Assessment: 13:35 General: Appears uncomfortable, ill, Behavior is calm, cooperative, appropriate for 1 age. Respiratory: Reports cough that is productive, blood in sputum. Historical: - Allergies: 13:11 No Known Allergies; ll1 - PMHx: 13:11 Diabetes - NIDDM; Hypercholesterolemia; Hypertension; Hypothyroidism; ll1 - PSHx: 13:11 Stented artery; ll1 13:42 carotid SX; ll1 - Immunization history:: Adult Immunizations up to date. - Social history:: Smoking status: Patient/guardian denies using tobacco. Screenin:40 [facility] ED Fall Risk Assessment (Adult) History of falling in the last 3 months, rs5 including since admission No falls in past 3 months (0 pts) Confusion or Disorientation No (0 pts) Intoxicated or Sedated No (0 pts) Impaired Gait No (0 pts) Mobility Assist Device Used No (0 pt) Altered Elimination No (0 pt) Score/Fall Risk Level 0 - 2 = Low Risk Oriented to surroundings, Maintained a safe environment. Abuse screen: Denies threats or abuse. Nutritional screening: No deficits noted. Tuberculosis screening: No symptoms or risk factors identified. Assessment: 13:35 General: Appears in no apparent distress. comfortable, Behavior is calm, cooperative. rs5 Pain: Denies pain. Neuro: Level of Consciousness is awake, alert, obeys commands, Oriented to person, place, time, situation. Cardiovascular: Patient's skin is warm and dry. Rhythm is regular. Respiratory: Reports cough that is productive, pt states "I've been having a productive cough for about a week and I started coughing up blood this morning" Airway is patent Respiratory effort is even, unlabored, Respiratory pattern is regular, symmetrical. 13:35 GI: Abdomen is round non-distended, Abd is soft and non tender X 4 quads. : No signs rs5 and/or symptoms were reported regarding the genitourinary system. EENT: No signs and/or symptoms were reported regarding the EENT system. Derm: Skin is intact, Skin is pink, warm \\T\\ dry. Musculoskeletal: Range of motion: intact in all extremities. 14:29 Reassessment: Patient and/or family updated on plan of care and expected duration. Pain rs5 level reassessed. Patient is alert, oriented x 3, equal unlabored respirations, skin warm/dry/pink. Patient denies pain at this time. Vital Signs: 13:40 BP 151 / 91; Pulse 66; Resp 18; Temp 98.6; Pulse Ox 100% on R/A; ll1 15:01 BP 155 / 96; Pulse 70; Resp 18; Pulse Ox 99% on R/A; rs5 ED Course: 13:08 Patient arrived in ED. mr 13:11 Arm band placed on. ll1 13:13 Javi Bowles MD is Attending Physician. ec2 13:35 Triage completed. ll1 13:40 Patient has correct armband on for positive identification. Bed in low position. Call rs5 light in reach. Side rails up X2. 13:40 No provider procedures requiring assistance completed. rs5 14:04 CXR XRAY In Process Unspecified. EDMS 14:12 Tobi Dykes, KEENAN is Primary Nurse. rs5 14:22 Initial lab(s) drawn, by me, sent to lab. Inserted saline lock: 20 gauge in right jg11 antecubital area, using aseptic technique. Blood collected. 15:01 IV discontinued, intact, bleeding controlled, No redness/swelling at site. Pressure rs5 dressing applied. Administered Medications: No medications were administered Medication: 13:40 VIS not applicable for this client. rs5 Outcome: 14:45 Discharge ordered by . ec2 15:01 Discharged to home ambulatory, rs5 15:01 Condition: stable 15:01 Discharge instructions given to patient, Instructed on discharge instructions, follow up and referral plans. Demonstrated understanding of instructions, follow-up care, 15:05 Patient left the ED. rs5 Signatures: Dispatcher [employer] EDWI Wale Milagros, Reg Reg mr MoralesOlivia, RN RN ll1 Tobi Dykes RN RN rs5 Javi Bowles MD MD ec2 Ousmane Dorsey jg11 Corrections: (The following items were deleted from the chart) 13:41 13:35 Chief complaint: Patient states: Coughing up blood for days. ll1 ll1 13:42 13:35 Social history: Smoking status: Patient denies any tobacco usage or history of. ll1 ll1 19:19 14:00 Reassessment: Patient and/or family updated on plan of care and expected rs5 duration. Pain level reassessed. Patient is alert, oriented x 3, equal unlabored respirations, skin warm/dry/pink. Patient denies pain at this time. rs5
[2023-11-14 15:31] VITALS: BP 151/91; TEMP 98.6; O2SAT 100
== END ==
LOC: ER 13:06
DX: R04.2 Hemoptysis (principal); E11.9 Type 2 diabetes mellitus without complications; I10 Essential (primary) hypertension
CPT/HCPCS: 36415; 71045; 80053; 85025; 85610; 85730; 99283

== ENCOUNTER 2024-01-23 15:23 | Emergency (ER) | payer OTHER ==
--- OUTSIDE RECORDS SUMMARY | 2024-01-23 15:26 | XMS REPORT | Continuity of Care Document ---
Author Name Unknown Address [address] [facility] [place] [address] [facility] Address [address] [place] [address] Care Team Providers Care Hide Washer Name Role Phone Jackson Montgomery Attending Clinician Unavailable Anurag Muro Attending Clinician Unavailabl e Jackson Montgomery Admitting Clinician Unavailable Anurag Muro Admitting Clinician Unavailabl e Payers Payer Name Policy Type Policy Number Effective Date Expirati on Date Source Allergies, Adverse Reactions, Alerts Allergy Name Allergy Type Status Severity Reaction(s) Onset Date Inactive Date Treating Clinician Comments Source No Known Allergie s DA Active U 12-03 00:00: 00 [facility] Procedures Procedure Date / Time Performed Performing Clinicia n Source [id number] 2023-12-06 00:00:00 [facility].01 [facility] [id number] 2023-12-06 00:00:00 [facility].01 [facility] [id number] 2023-12-06 00:00:00 [facility]01 [facility] [id number] 2023-12-06 00:00:00 [facility]01 [facility] [id number] 2023-12-06 00:00:00 [facility].01 [facility] [id number] 2023-12-06 00:00:00 [facility]AA[facility].01 [facility] Encounters Start Date/Time End Date/Time Encounter Type Admission Type Attending Clinicians Care Facility Care Department Encounter ID Source 2020-08-15 13:00:00 Inpatient Jackson Harman [facility] [id number] [facility] are [facility] 2023-12-06 05:31:00 2023-12-07 15:43:00 Inpatient Anurag Wayne [facility] [id number] 63 [facility] 2022-04-18 15:27:00 2022-04-18 15:27:00 [facility] [id number] [facility] are [facility] Results Test Description Test Time Test Comments Results Result Co mments Source BASIC METABOLIC [id number] 03:38:00* Test Item Value Reference Range Interpretation Comme nts SODIUM (test code = NA) 138 mEq/L 134-147 N POTASSIUM (test code = K) 3.9 mEq/L 3.4-5.0 N CHLORIDE (test code = CL) 103 mEq/L 100-108 N CARBON DIOXIDE (test code = CO2) 27 mEq/l 21-33 N ANION GAP (test code = GAP) 12 0-20 N GLUCOSE (test code = GLU) 117 mg/dL 77-141 BLOOD UREA NITROGEN (test code = BUN) 20 mg/dL 7-25 N GLOMERULAR FILTRATION RATE (test code = GFR) 95.2 70-80 H The Glomerular Filtration Rate is a calculated parameterbased on serum Creatinine, patient age and sex. GFR valuesless than 60 mL/min/1.73 square meters are indicative ofChronic Kidney Disease. Values less than 15 mL/min/1.73square meters indicate Kidney failure. The calculation forGFR is based on the CKD-EPI (2020) calculation. This formulais race indifferent and is the recommended formula for GFRby the National Kidney Foundation for Adults.The GFR will not calculate if the sex is unknown or if thepatient's age is <18 years. CREATININE (test code = CREAT) 0.8 mg/dL 0.6-1.3 N CALCIUM (test code = CA) 8.9 mg/dL 8.0-10.5 N [id number] 03:38:00* Test Item Value Reference Range Interpretation Comme nts MAGNESIUM (test code = MAG) 1.72 mg/dL 1.6-2.6 N CBC W/AUTO [id number] 03:16:00* Test Item Value Reference Range Interpretation Comme nts WHITE BLOOD CELL (test code = WBC) 12.3 x10 3/uL 4.5-11.0 H RED BLOOD CELL (test code = RBC) 4.13 x10 6/uL 4.00-5.60 N HEMOGLOBIN (test code = HGB) 12.5 g/dL 12.5-16.9 N HEMATOCRIT (test code = HCT) 38.0 % 37.5-50.7 N MEAN CELL VOLUME (test code = MCV) 92.0 fL 81.0-99.0 N MEAN CELL HGB (test code = MCH) 30.3 pg 27.0-33.0 N MEAN CELL HGB CONCETRATION (test code = MCHC) 32.9 g/dL 33.0-37.0 L RED CELL DISTRIBUTION WIDTH CV (test code = RDW) 13.4 % 11.5-14.5 N RED CELL DISTRIBUTION WIDTH SD (test code = RDW-SD) 45.7 fL 37.0-54.0 N PLATELET COUNT (test code = PLT) 195 x10 3/uL 150-400 N MEAN PLATELET VOLUME (test c ode = MPV) 12.6 fL 7.0-9.0 H NEUTROPHIL % (test code = NT%) 78.2 % 56.0-77.0 H IMMATURE GRANULOCYTE % (test code = IG%) 0.3 % 0.0-2.0 N LYMPHOCYTE % (test code = LY%) 12.3 % 14.0-32.0 L MONOCYTE % (test code = MO%) 9.0 % 4.8-9.0 N EOSINOPHIL % (test code = EO%) 0.0 % 0.3-3.7 L BASOPHIL % (test code = BA%) 0.2 % 0.0-2.0 N NUCLEATED RBC % (test code = NRBC%) 0.0 % 0-0 N NEUTROPHIL # (test code = NT#) 9.62 x10 3/uL 2.0-7.6 H IMMATURE GRANULOCYTE # (test code = IG#) 0.04 x10 3/uL 0.00-0.03 H LYMPHOCYTE # (test code = LY#) 1.51 x10 3/uL 1.0-3.8 N MONOCYTE # (test code = MO#) 1.11 x10 3/uL 0.1-0.8 H EOSINOPHIL # (test code = EO#) 0.00 x10 3/uL 0.0-0.2 N BASOPHIL # (test code = BA#) 0.02 x10 3/uL 0.0-0.2 N NUCLEATED RBC # (test code = NRBC#) 0.00 x10 3/uL 0.0-0.1 N GLUCOSE [id number] 21:16:00* Test Item Value Reference Range Interpretation Comme [facility] GLUCOSE BEDSIDE (test code = GLUBED) 190 MG/DL 70-110 H Performed by cer tified chief operator hydroformer at [facility] GLUCOSE [id number] 12:30:00* Test Item Value Reference Range Interpretation Comme [facility] GLUCOSE BEDSIDE (test code = GLUBED) 155 MG/DL 70-110 H Performed by [facility] BatesHookied chief operator hydroformer at [facility] BASIC METABOLIC [id number] 12:26:00* Test Item Value Reference Range Interpretation Comme nts SODIUM (test code = NA) 140 mEq/L 134-147 N POTASSIUM (test code = K) 4.3 mEq/L 3.4-5.0 N CHLORIDE (test code = CL) 106 mEq/L 100-108 N CARBON DIOXIDE (test code = CO2) 25 mEq/l 21-33 N ANION GAP (test code = GAP) 13 0-20 N GLUCOSE (test code = GLU) 163 mg/dL 77-141 H BLOOD UREA NITROGEN (test code = BUN) 15 mg/dL 7-25 N GLOMERULAR FILTRATION RATE (test code = GFR) 95.2 70-80 H The Glomerular Filtration Rate is a calculated parameterbased on serum Creatinine, patient age and sex. GFR valuesless than 60 mL/min/1.73 square meters are indicative ofChronic Kidney Disease. Values less than 15 mL/min/1.73square meters indicate Kidney failure. The calculation forGFR is based on the CKD-EPI (202) calculation. This formulais race indifferent and is the recommended formula for GFRby the National Kidney Foundation for Adults.The GFR will not calculate if the sex is unknown or if thepatient's age is <18 years. CREATININE (test code = CREAT) 0.8 mg/dL 0.6-1.3 N CALCIUM (test code = CA) 8.4 mg/dL 8.0-10.5 N HGB [id number] 12:12:00* Test Item Value Reference Range Interpretation Comme nts HEMOGLOBIN (test code = HGB) 13.3 g/dL 12.5-16.9 N HEMATOCRIT (test code = HCT) 40.5 % 37.5-50.7 N [id number] 07:47:00* Test Item Value Reference Range Interpretation Comme nts ACT-ISTAT (test code = ACTI) 293 SEC 74-137 H Performed by cer tified chief operator hydroformer at [facility] GLUCOSE [id number] 07:08:00* Test Item Value Reference Range Interpretation Comme [facility] GLUCOSE BEDSIDE (test code = GLUBED) 127 MG/DL 70-110 H Performed by cer tified chief operator hydroformer at [facility] - XR CHEST 2 [id number] 12:25:00 [facility] 1955 Sex: M FAX: Anurag Roth MD [phone] [place]: St: PRE Name: JAYJAY BOYER JR [facility] : 1955 Age/S: 68/M[address] Unit #: [id number] Loc: [place] [address] Phys: Anurag Muro MD Acct: [id number] Dis Date: Status: PRE IN PHONE #: [phone] Exam Date: 12/04/2023 1140 FAX #: [phone] Reason: PREOP EXAMS: CPT CODE: [id number] XR CHEST 2 V [id number] EXAM: CHEST 2 VIEWS INDICATION: PREOP LOCATION: B2 COMPARISON: None available TECHNIQUE: PA and lateral views of the chest. FINDINGS: The heart size is normal. The lungs are clear bilaterally. The pulmonary vasculature is normal. No pneumothorax or pleural effusion is identified. The osseous structures are normal. IMPRESSION: No acute cardiopulmonary process. at 2441 Reported and signed by: Sanjana Nowak M.D. CC: Anurag Muro MD Technologist:RT Malcolm(R) Trnscrd Date/Time/By: 12/04/2023 (4786) : By: 16 [facility] Print D/T: S: 12/04/2023 (4126) PAGE 1 Signed ReportCOMPREHENSIVE METABOLIC [id number] 11:40:00* Test Item Value Reference Range Interpretation Comme nts SODIUM (test code = NA) 140 mEq/L 134-147 N POTASSIUM (test code = K) 4.1 mEq/L 3.4-5.0 N CHLORIDE (test code = CL) 104 mEq/L 100-108 N CARBON DIOXIDE (test code = CO2) 29 mEq/l 21-33 N ANION GAP (test code = GAP) 11 0-20 N GLUCOSE (test code = GLU) 164 mg/dL 77-141 H BLOOD UREA NITROGEN (test code = BUN) 14 mg/dL 7-25 N GLOMERULAR FILTRATION RATE (test code = GFR) 81.0 70-80 H The Glomerular Filtration Rate is a calculated parameterbased on serum Creatinine, patient age and sex. GFR valuesless than 60 mL/min/1.73 square meters are indicative ofChronic Kidney Disease. Values less than 15 mL/min/1.73square meters indicate Kidney failure. The calculation forGFR is based on the CKD-EPI (2020) calculation. This formulais race indifferent and is the recommended formula for GFRby the National Kidney Foundation for Adults.The GFR will not calculate if the sex is unknown or if thepatient's age is <18 years. CREATININE (test code = CREAT) 1.0 mg/dL 0.6-1.3 N TOTAL PROTEIN (test code = PROT) 8.2 g/dL 6.4-8.2 N ALBUMIN (test code = ALB) 4.40 g/dL 3.4-5.0 N CALCIUM (test code = CA) 10.0 mg/dL 8.0-10.5 N BILIRUBIN TOTAL (test code = BILT) 0.60 mg/dL 0.0-1.0 N SGOT/AST (test code = AST) 20 IUnit/L 8-34 N SGPT/ALT (test code = ALT) 23 IUnit/L 10-49 N ALKALINE PHOSPHATASE TOTAL (test code = ALKP) 120 IUnit/L 20-125 N COVID 19 Asymptomatic IH [id number] 11:36:00* Test Item Value Reference Range Interpretation Comme nts COVID 19 Asymptomatic IH AG (test code = COVNONPUIAG) Negative Negative A negative resul t is presumptive and should be confirmedwith an FDA authorized molecular assay, if necessary forpatient management.A positive result does not rule out co-infections withother pathogens.This test detects both viable (live) and non-viable,SARS-CoV, and SARS-CoV-2. Test performance depends on theamount of virus (antigen) in the sample.This test has not been FDA cleared or approved; the test hasbeen authorized by FDA under an Emergency Use Authorization(EUA) for use by laboratories certified under the CLIA thatmeet the requirements to perform moderate, high or waivedcomplexity tests. PROTHROMBIN [id number] 11:35:00* Test Item Value Reference Range Interpretation Comme nts PROTHROMBIN TIME PATIENT (test code = PTP) 11.2 SECONDS 9.3-12.9 N INTERNATIONAL NORMAL RATIO (test code = INR) 1.0 0.8-1.2 N TARGET INR BY INDICATION Indication INR1. Prophylaxis of venous thrombosis 2.0 - 3.0 (orthopedic surgery), Prophylaxis of venous thrombosis (other than high-risk surgery), Treatment of Deep Vein Thrombosis/Pulmonary Embolism, Prevention of systemic embolism - Tissue heart valves, Acute Myocardial Infarction (to prevent systemic embolism), Valvular heart disease, Atrial Fibrillation, Bileaflet mechanical valve in aortic position.2. Mechanical prosthetic valves (high risk), 2.5 - 3.5 Presence of Lupus Anticoagulant or Antiphospholipid Antibodies, Prevention of systemic embolism - Acute Myocardial Infarction (to prevent recurrent infarct). THROMBOPLASTIN TIME [id number] 11:35:00* Test Item Value Reference Range Interpretation Comme nts THROMBOPLASTIN TIME PARTIAL (test code = PTT) 35.5 Seconds 25.0-39.5 N Therapeutic Rang e: 50.4 - 88.3 Seconds Effective 01/13/2019 UA RFLX MICR CULT IF [id number] 11:26:00* Test Item Value Reference Range Interpretation Comme nts UA COLOR (test code = COLU) YELLOW YEL/STRAW UA APPEARANCE (test code = APPU) CLEAR CLEAR UA GLUCOSE DIPSTICK (test co de = DGLUU) 3+ NEGATIVE A UA BILIRUBIN DIPSTICK (test code = BILU) NEGATIVE NEGATIVE UA KETONE DIPSTICK (test cod e = KETU) NEGATIVE NEGATIVE UA SPECIFIC GRAVITY (test co de = SGU) 1.025 1.005-1.030 N UA BLOOD DIPSTICK (test code = TIFFANY) NEGATIVE NEGATIVE UA PH DIPSTICK (test code = BRIAN) 5.0 5.0-7.0 N UA PROTEIN DIPSTICK (test co de = PROU) 2+ NEGATIVE A UA UROBILINIOGEN DIPSTICK (test code = URO) 0.2 mg/dL 0.2-1.0 UA NITRITE DIPSTICK (test co de = ERNESTO) NEGATIVE NEGATIVE UA LEUKOCYTE ESTERASE DIPSTI CK (test code = LEUU) NEGATIVE NEGATIVE UA WBC (test code = WBCU) 0-3 WBC/HPF 0-3 UA RBC (test code = RBCU) 0-3 RBC/HPF 0-3 UA WBC NO REFLEX (test code = WBCUCL) 0-3 WBC/HPF 0-3 UA BACTERIA (test code = BACU) NONE SEEN /HPF NONE SEEN UA SQUAMOUS CELLS (test code = SQU) 0-5 /HPF NONE SEEN UA MUCUS (test code = MUCU) TRACE /LPF NONE SEEN Indication for culture: Temperature > 100.4 FSpecimen Description: [facility] W/AUTO [id number] 11:24:00* Test Item Value Reference Range Interpretation Comme nts WHITE BLOOD CELL (test code = WBC) 10.1 x10 3/uL 4.5-11.0 N RED BLOOD CELL (test code = RBC) 5.09 x10 6/uL 4.00-5.60 N HEMOGLOBIN (test code = HGB) 15.5 g/dL 12.5-16.9 N HEMATOCRIT (test code = HCT) 47.1 % 37.5-50.7 N MEAN CELL VOLUME (test code = MCV) 92.5 fL 81.0-99.0 N MEAN CELL HGB (test code = MCH) 30.5 pg 27.0-33.0 N MEAN CELL HGB CONCETRATION (test code = MCHC) 32.9 g/dL 33.0-37.0 L RED CELL DISTRIBUTION WIDTH CV (test code = RDW) 13.4 % 11.5-14.5 N RED CELL DISTRIBUTION WIDTH SD (test code = RDW-SD) 45.2 fL 37.0-54.0 N PLATELET COUNT (test code = PLT) 237 x10 3/uL 150-400 N MEAN PLATELET VOLUME (test c ode = MPV) 12.0 fL 7.0-9.0 H NEUTROPHIL % (test code = NT%) 67.1 % 56.0-77.0 N IMMATURE GRANULOCYTE % (test code = IG%) 0.3 % 0.0-2.0 N LYMPHOCYTE % (test code = LY%) 22.2 % 14.0-32.0 N MONOCYTE % (test code = MO%) 7.8 % 4.8-9.0 N EOSINOPHIL % (test code = EO%) 2.0 % 0.3-3.7 N BASOPHIL % (test code = BA%) 0.6 % 0.0-2.0 N NUCLEATED RBC % (test code = NRBC%) 0.0 % 0-0 N NEUTROPHIL # (test code = NT#) 6.80 x10 3/uL 2.0-7.6 N IMMATURE GRANULOCYTE # (test code = IG#) 0.03 x10 3/uL 0.00-0.03 N LYMPHOCYTE # (test code = LY#) 2.25 x10 3/uL 1.0-3.8 N MONOCYTE # (test code = MO#) 0.79 x10 3/uL 0.1-0.8 N EOSINOPHIL # (test code = EO#) 0.20 x10 3/uL 0.0-0.2 N BASOPHIL # (test code = BA#) 0.06 x10 3/uL 0.0-0.2 N NUCLEATED RBC # (test code = NRBC#) 0.00 x10 3/uL 0.0-0.1 N - DUP EXTRACRANIAL [id number] 14:15:00 [facility] : 1955 Sex: MPatient Name: JAYJAY BOYER Unit No: [id number] EXAMS: CPT: [id number] [facility] EXTRACRANIAL CHARISSE 40943 BILATERAL CAROTID ARTERY ULTRASOUND AND DUPLEX IMAGING REPORT CONCLUSIONS: 1. Normal carotid artery ultrasound and spectrum analysis bilaterally. 2. There is no evidence of any significant areas of stenosis, and the spectrum analysis reveals no evidence of flow turbulence. 3. The vertebral artery flow is a normal antegrade pattern bilaterally. HISTORY AND INDICATIONS FOR THE STUDY: This study is performedfor the evaluation of the presence and extent of carotid atherosclerotic disease. COMPARISON STUDY:No studies are available for comparison TECHNICAL NOTE: medical laboratory technologist: Iris Crowe Following the Vascular Lab Protocol, real time [...] or in the left internal carotid artery. 2.The spectrum analysis reveals no evidence of flow turbulence or hemodynamically significant lesionsin the left carotid system. 3. The ICA/CCA velocity ratio is 1.2. VERTEBRAL ARTERIES: Normal antegrade vertebral artery flow bilaterally. at 1415 Reported and signed by: LEON LI MD Name: JAYJAY BOYER [facility] Phys: Jackson Bernard MD [address] [facility] : 1955 Age: 65 Sex: M [place] [id number] Loc: N.[facility] Exam Date: 08/15/2020 Status: REG CLI PH: FAX: PAGE 1 Signed Report (CONTINUED) Patient Name: JAYJAY BOYER Unit No: [id number] EXAMS: CPT: [id number] DUP EXTRACRANIAL CHARISSE 98024 (Continued) CC: Jackson Montgomery MD Technologist: Iris Marquez Probe: Trscr Dt/Tm: 08/15/2020 (1415) by:QuianaHROrig Print D/T: S: 08/15/2020 (1418) BATCH NO: N/A Name: JAYJAY BOYER [facility] Phys: Jackson Funes MD [address] [facility] : 1955 Age: 65 Sex: M [place] [address] Loc: N.[facility] Exam Date: 08/15/2020 Status: REG CLI PH: FAX: PAGE 2 Signed Report Notes Date/Time Note Provider Source 2023-12-07 12:54:00 [id number]:54:00 [facility] ([facility])Discharge SummaryREPORT#:[id number] REPORT STATUS: SignedREPORT INITIALIZATION DATE:12/07/23 TIME: 1254 PATIENT: JAYJAY BOYER JR UNIT #: [id number]#: [id number] [address] [birth year] AGE: 68 SEX: M ATTEND: Anurag Muro MDADM AUTHOR: Anurag Muro MDREPT SERVICE DT/TIME: 12/07/23 1254* ALL edits or amendments must be made on the electronic/computer document * PCP PCPPCP:PCP: Jackson Montgomery MD Discharge to: home General InformationDate of admission:Observation Start Date: Date of admission: 12/06/23 Discharge date: 12/07/23Discharge diagnosis:s/p left ceaHospital course:This is a very pleasant 68 year old gentleman with a medical history of coronaryartery disease with previous PCI of the LAD about 6 months ago who was found to have severe left common carotid artery stenosis 80-90% on recent angiogram. Patient has right carotid stenosis of 20-30%.I have discussed with the patient the surgery, risks involved, benefits, alternatives, and complications. Patient verbalized understanding and willing toproceed with surgery. All questions were answered. Patient is being admitted today for left carotid endarterectomy. Admit to CCUPost op careMonitor neuro status and heart rhythmCritical care consulted 12/06/23Left CEA 12/07/23Patient doing welll, denies complaintsDenies headache, neuro and motor sensory function intactAlert, awake, and orientedLabs reviewedDiscontinued KARINA drain (20 overnight)Dicontinue a lineTolerating dietOOB in chairOK to discharge homeFollow up in 1-2 weeksAll questions were answered. Med Rec PCPPCP:PCP: Jackson Montgomery MD Med RecDischarge meds:Continue taking these medications:EMPAGLIFLOZIN (JARDIANCE) 25 MG TAB 25 MILLIGRAM ORAL DAILY. CHOLECALCIFEROL (VITAMIN D3) (VITAMIN D3) 1,250 MCG (50,000 UNIT) CAP 50,000 UNIT ORAL EVERY 7 DAYS. CLOPIDOGREL (PLAVIX) 75 MG TAB 75 MILLIGRAM ORAL DAILY. LEVOTHYROXINE (SYNTHROID) 25 MCG TAB 25 MICROGRAM ORAL DAILY. LOSARTAN (COZAAR) 50 MG TAB 50 MILLIGRAM ORAL DAILY. GLIMEPIRIDE (AMARYL) 4 MG TAB 4 MILLIGRAM ORAL DAILY. METOPROLOL SUCC XL (TOPROL XL) 25 MG TAB.SR.24H 25 MILLIGRAM ORAL DIRECTED. Instructions: TAKE HALF TAB BID ATORVASTATIN (LIPITOR) 40 MG TAB 40 MILLIGRAM ORAL BEDTIME. metFORMIN (GLUCOPHAGE) 1,000 MG TAB 1,000 MILLIGRAM ORAL TWICE DAILY. Instructions: TAKE WITH MEALS PILOCARPINE (ISOPTO CARPINE 1% OPHTH SOLN) 1 % OPHTH.SOLN 1 DROPS RIGHT EYE THREE TIMES A DAY. LATANOPROST (XALATAN 0.005% OPHTH SOLN) 0.005 % OPHTH.SOLN 1 DROPS RIGHT EYE BEDTIME. Start taking the following new medications:ASPIRIN (ASPIRIN) 81 MG TAB.CHEW 81 MILLIGRAM ORAL DAILY. Qty = 30 No Refills ObjectiveVS/I OLast Documented: Result Date Time Pulse Ox 96 12/06 1100 B/P 157/74 12/06 1100 B/P Mean 107 12/06 1100 Pulse 62 12/06 1100 Resp 13 12/06 1100 O2 Delivery Room air 12/06 0800 Temp 36.5 12/06 0800 O2 Flow Rate 2 12/05 1319 24 hour I O ending at 0700: 12/06 0700 12/05 1900 Intake Total 300.00 200 Output Total 20 15 Balance 280.00 185 Intake, IV 50.00 Intake, Oral 250 200 Number Voids 3 1 Output, 20 15 Drainage Patient 97.6 kg Weight Weight Standing scale Measurement Method PATIENT WEIGHT: Weight (lb): 215Weight (oz): 2.74Weight (kg): 97.600 General appearance: alert, awake, orientedHead/Eyes: atraumatic, normocephalicENT: normal nose, moist mucosal membranesNeck: full range of motion, non-tenderCardiovascular: regular rate rhythm, normal heart soundsRespiratory: clear to auscultation, aerating well, symmetric expansionGI: soft, non-tenderGenitourinary: no flank pain, urineExtremities: moves all, no edema-all extremities, normal range of motion, normalsensory, normal motor functionMusculoskeletal: full range of motion, normal inspection, painless range of motionNeuro/ROTARY ENVELOPE MACHINE OPERATOR: alert, oriented X 3, no motor deficits, no sensory deficitsSkin: dry, intactWound/incision: Location:left neck Site Condition: edges approximated, incision intact, wound clean dryPsychiatry: normal affect, normal mood ResultsFindings/Data:Laboratory Tests: 12/06 12/05 0237 2102 Chemistry Sodium (134 - 147 mEq/L) 138 Potassium (3.4 - 5.0 mEq/L) 3.9 Chloride (100 - 108 mEq/L) 103 Carbon Dioxide (21 - 33 mEq/l) 27 Anion Gap (0 - 20) 12 BUN (7 - 25 mg/dL) 20 Creatinine (0.6 - 1.3 mg/dL) 0.8 Glomerular Filtr Rate (70 - 80) 95.2 H Glucose (77 - 141 mg/dL) 117 POC Glucose (70 - 110 MG/DL) 190 H Calcium (8.0 - 10.5 mg/dL) 8.9 Magnesium (1.6 - 2.6 mg/dL) 1.72 Hematology WBC (4.5 - 11.0 x10 3/uL) 12.3 H RBC (4.00 - 5.60 x10 6/uL) 4.13 Hgb (12.5 - 16.9 g/dL) 12.5 Hct (37.5 - 50.7 %) 38.0 MCV (81.0 - 99.0 fL) 92.0 MCH (27.0 - 33.0 pg) 30.3 MCHC (33.0 - 37.0 g/dL) 32.9 L RDW (11.5 - 14.5 %) 13.4 Plt Count (150 - 400 x10 3/uL) 195 MPV (7.0 - 9.0 fL) 12.6 H Neut % (Auto) (56.0 - 77.0 %) 78.2 H Lymph % (Auto) (14.0 - 32.0 %) 12.3 L Donley % (Auto) (4.8 - 9.0 %) 9.0 Eos % (Auto) (0.3 - 3.7 %) 0.0 L Baso % (Auto) (0.0 - 2.0 %) 0.2 Neut # (Auto) (2.0 - 7.6 x10 3/uL) 9.62 H Lymph # (Auto) (1.0 - 3.8 x10 3/uL) 1.51 Donley # (Auto) (0.1 - 0.8 x10 3/uL) 1.11 H Eos # (Auto) (0.0 - 0.2 x10 3/uL) 0.00 Baso # (Auto) (0.0 - 0.2 x10 3/uL) 0.02 Abs Immat Gran (auto) (0.00 - 0.03 x10 3/uL) 0.04 H Immature Gran % (0.0 - 2.0 %) 0.3 Nucleated RBC % (0 - 0 %) 0.0 Nucleated RBCs # (Man) (0.0 - 0.1 x10 3/uL) 0.00 Results: labs reviewed, vital signs reviewed, vital signs stable, rhythm personally rev'd, current med profile rev'd Treatments ProceduresLab:Chemistry last 24 hrs: 12/06 236 Chemistry Sodium (134 - 147 mEq/L) 138 Potassium (3.4 - 5.0 mEq/L) 3.9 Chloride (100 - 108 mEq/L) 103 BUN (7 - 25 mg/dL) 20 Creatinine (0.6 - 1.3 mg/dL) 0.8 Glucose (77 - 141 mg/dL) 117 Hematology last 24 hrs: 12/06 236 Hematology WBC (4.5 - 11.0 x10 3/uL) 12.3 H Hgb (12.5 - 16.9 g/dL) 12.5 Hct (37.5 - 50.7 %) 38.0 Plt Count (150 - 400 x10 3/uL) 195 Neut % (Auto) (56.0 - 77.0 %) 78.2 H Discharge Instructions PCPPCP:PCP: Jackson Montgomery MD )( Discharge to: Home/Self Care Discharge InstructionsAdditional Discharge Routines: PCP Follow-Up, Attending Follow-Up, Wound/Dressing Care)( Diet: Resume Home Diet/Feeds, Cardiac)( Activity: Resume Normal Activity, As Tolerated, Appropriate for Age, Do not Submerge Incision)( Wound/dressing care: Clean wound daily, Do not submerge incision, OK to shower tomorrow)( Notify PCP of these S/S: Chest Pain, Increased redness, Increased swelling, Increased tenderness/pain, Moderate/large bleeding, Numbness, Pus-like discharge, Red line from wound, Shortness of breath, Temp. 101 or greater Follow-up AppointmentsPCP follow up: PCP: Jackson Montgomery MD PCP follow up timeframe: In 1-2 weeksAttending Physician: Attending Physician: Anurag Muro MD Attending physician follow up timeframe: In 1-2 weeks Quality: Discharge Advanced Care Plan 65 or OlderDiscussed with: patient at 0940 RPT #:[id number] OF REPORTDSDischarge [id number]:54:00G.[id number] ailable for patient purqORHSVXJGJHLXFO0468-64-17U80:42:10 [facility] 2023-12-07 12:20:00 [id number] ZZz6Y+jA6dLcfPkNsoz1E7JpzvmQI NHegtq/SuQybLstc2FUvEPvB0Pt3253-49-48E54:20:00 [facility] ([facility])Cardiology Progress NoteREPORT#:[id number] REPORT STATUS: SignedREPORT INITIALIZATION DATE:12/07/23 TIME: 1220 PATIENT: JAYJAY BOYER JR UNIT #: [id number]#: [id number] [address] [birth year] AGE: 68 SEX: M ATTEND: Anurag Muro MDADM AUTHOR: Bubba Vaughn MDREPT SERVICE DT/TIME: 12/07/23 1220* ALL edits or amendments must be made on the electronic/computer document * SubjectiveChief complaint:BetterHPI:This is a very pleasant 68-year-old male with past medical history of coronary disease s/p recent PCI, found to have carotid stenosis underwent left CEA and admitted for postop care. Patient denies any chest pain, shortness of breath, difficulty swallowing or speech. Objective GeneralVS/I O:24 hour I O ending at 0700: 12/06 0700 12/05 1900 Intake Total 300.00 200 Output Total 20 15 Balance 280.00 185 Intake, IV 50.00 Intake, Oral 250 200 Number Voids 3 1 Output, 20 15 Drainage Patient 97.6 kg Weight Weight Standing scale Measurement Method Vital Signs: Date Time Temp Pulse Resp B/P B/P Pulse O2 O2 Flow FiO2 Mean Ox Delivery Rate 12/06 1100 62 13 157/74 107 96 03/09 1000 59 17 174/85 122 95 03/09 0914 57 17 168/74 106 95 03/09 0900 61 33 95 03/09 0800 97.7 Room air 03/09 0800 54 14 166/74 107 94 03/09 0700 53 15 159/72 103 94 03/09 0645 57 17 95 03/09 0630 54 16 94 03/09 0615 56 16 96 03/09 0612 56 16 94 03/09 0607 62 19 95 03/09 0600 97 23 03/09 0545 60 21 96 03/09 0530 55 15 127/49 74 92 03/09 0515 55 15 150/57 90 96 03/09 0500 150/78 108 03/09 0500 58 17 144/52 83 87 03/09 0445 53 15 125/48 73 92 03/09 0430 53 14 121/47 70 94 03/09 0415 54 16 120/47 70 92 03/09 0401 130/62 89 03/09 0401 56 16 126/48 73 92 03/09 0400 56 16 134/51 78 87 03/09 0345 55 14 128/48 74 93 03/09 0330 55 16 133/50 76 93 03/09 0315 55 14 142/53 83 94 03/09 0300 168/72 104 03/09 0300 60 17 153/59 93 95 03/09 0245 58 16 126/48 73 94 03/09 0230 56 16 120/48 71 90 03/09 0215 57 15 126/49 73 88 03/09 0200 162/72 104 03/09 0200 59 16 149/54 85 94 03/09 0145 59 16 125/48 71 86 03/09 0130 59 17 126/49 72 92 03/09 0115 60 16 127/48 72 90 03/09 0100 136/63 91 03/09 0100 59 16 134/50 77 92 03/09 0045 60 17 136/53 79 92 03/09 0030 62 15 141/55 82 94 03/09 0015 61 16 142/55 83 94 03/09 0000 61 18 137/58 85 94 03/08 2331 63 18 124/51 77 92 03/08 2330 64 18 128/53 79 94 03/08 2315 63 17 121/50 73 94 03/08 2300 130/62 89 03/08 2300 64 16 119/49 73 92 03/08 2245 66 18 125/53 78 93 03/08 2230 65 17 117/53 75 93 03/08 2215 67 15 131/56 83 94 03/08 2200 146/71 102 03/08 2200 71 19 143/61 91 93 03/08 2145 67 18 147/56 85 94 03/08 2130 81 03/08 2115 104 94 03/08 2100 150/66 95 03/08 2100 64 12 151/60 90 97 03/08 2045 66 17 157/60 92 94 03/08 2037 156/70 101 03/08 2037 69 16 95 03/08 2029 71 23 95 03/08 2014 70 118/51 74 97 03/08 1999 98.3 03/08 1999 129/61 88 03/08 1999 66 17 129/48 73 93 03/08 1945 71 16 134/51 78 95 03/08 1930 66 16 113/45 65 94 03/08 1915 71 17 113/47 68 94 03/08 1900 124/61 88 03/08 1900 77 19 113/54 75 96 03/08 1845 74 27 114/54 75 97 03/08 1830 79 24 129/105 116 96 03/08 1815 77 16 125/51 75 95 03/08 1800 72 17 116/46 65 95 03/08 1745 72 7 112/45 65 93 03/08 1730 87 33 102/45 66 96 03/08 1715 87 16 99/46 64 95 03/08 1700 95 20 112/53 74 94 03/08 1645 83 17 109/46 65 93 03/08 1630 86 18 115/46 66 93 03/08 1615 91 19 96/47 64 94 03/08 1600 91 16 113/49 68 94 03/08 1545 101 143/59 83 03/08 1530 94 136/60 87 97 03/08 1515 90 16 130/65 88 94 03/08 1319 Nasal 2 cannula 03/08 1300 72 16 125/64 99 Nasal 2 cannula 03/08 1230 72 16 120/61 99 PATIENT WEIGHT: Weight (lb): 215Weight (oz): 2.74Weight (kg): 97.600 Medications:Active Meds + DC'd Last 24 HrsAspirin (ASPIRIN) 81 MG DAILY PO Clopidogrel Bisulfate (Plavix) 75 MG DAILY PO Glimepiride (AmaryL) 4 MG DAILY PO Losartan Potassium (COZAAR) 50 MG DAILY PO Levothyroxine Sodium (Synthroid) 25 MCG 0600 PO Magnesium Sulfate (MAGNESIUM SULFATE 2GM/SWFI 50ML) 50 ML ONCE ONE IV (DC) Potassium Chloride (POTASSIUM CHLORIDE 20MEQ TAB.ER) 20 MEQ ONCE ONE PO (DC) Atorvastatin Calcium (LIPITOR) 40 MG BEDTIME PO Docusate Sodium (COLACE) 100 MG BID PO Latanoprost (XALATAN 2.5 ML OPHTH SOLN) 1 DROP BEDTIME RIGHT EYE Mupirocin (BACTROBAN 2% 22 GM OINTMENT) 1 APPLIC BID NASAL Hydromorphone HCl (DILAUDID) 0 .STK-MED ONE IV (DC) Metoprolol Succinate (TOPROL XL) 25 MG ASDIR PO (CKD) Acetaminophen (TYLENOL) 650 MG Q4H PRN PRN PO Acetaminophen (TYLENOL) 650 MG Q4H PRN PRN PO Acetaminophen (TYLENOL) 650 MG Q4H PRN PRN RECTAL Bisacodyl (DULCOLAX) 10 MG DAILY PRN PRN RECTAL Hydrocodone Bitart/Acetaminophen (NORCO 5/325) 2 TAB Q4H PRN PRN PO Magnesium Hydroxide (MILK OF MAGNESIA) 30 ML Q6H PRN PRN PO Ondansetron HCl (ZOFRAN) 4 MG Q6H PRN PRN IV Fentanyl Citrate (SUBLIMAZE) 100 MCG PACU Q10MIN PRN PRN IV (DC) Fentanyl Citrate (SUBLIMAZE) 50 MCG PACU Q10MIN PRN PRN IV (DC) Hydralazine HCl (APRESOLINE) 5 MG PACU Q10MIN PRN PRN IV (DC) Hydrocodone Bitart/Acetaminophen (NORCO 5/325) 1 TAB PACU ONCE PO (DC) Hydromorphone HCl (DILAUDID) 1 MG PACU Q10MIN PRN PRN IV (DC) Hydromorphone HCl (DILAUDID) 0.5 MG PACU Q5MIN PRN PRN IV (DC) Insulin Human Lispro (HUMALOG) 0 PACU ONCE PRN SUBQ (DC) Labetalol HCl (labetalol) 5 MG PACU Q10MIN PRN PRN IV (DC) Meperidine HCl (MEPERIDINE HCL/PF) 12.5 MG PACU ONCE PRN IV (DC) Morphine Sulfate (morphine SULFATE) 2 MG PACU Q10MIN PRN PRN IV (DC) Ondansetron HCl (ZOFRAN) 4 MG PACU ONCE PRN IV (DC) Ropivacaine (NAROPIN 0.5% 150 MG/30mL) 150 MG ASDIR PRN LOCAL (DC) Tramadol HCl (ULTRAM) 50 MG PACU ONCE PO (DC) Acetaminophen (TYLENOL EXTRA STRENGTH) 1,000 MG PREOP ONCALL PO (DC) Gabapentin (NEURONTIN) 200 MG PREOP ONCALL PO (DC) Insulin Human Lispro (HUMALOG) 0 Q4H PRN PRN SUBQ (DC) Lactated Ringer's (LACTATED RINGERS) 1,000 ML PREOP ONCALL IV (DC) Lidocaine HCl (LIDOCAINE HCL/PF) 2 ML PREOP ONCALL LOCAL (DC) Lidocaine HCl (LIDOCAINE HCL/PF) 2 ML PREOP ONCALL LOCAL (DC) Sodium Chloride (SODIUM CHLORIDE 0.9%) 500 ML PREOP ONCALL IV (DC) Sodium Chloride (SODIUM CHLORIDE 0.9%) 500 ML PREOP ONCALL IV (DC) Sodium Chloride (SODIUM CHLORIDE 0.9%) 1,000 ML PREOP ONCALL IV (DC) Cefazolin Sodium (KEFZOL OR ANCEF) 2 GM PREOP ONCALL IV (CKD) Sodium Chloride (SODIUM CHLORIDE) 20 ML ASDIR IV Sodium Chloride (SODIUM CHLORIDE) 5 ML ASDIR PRN IV Sodium Chloride (SODIUM CHLORIDE) 10 ML ASDIR PRN IV Sodium Chloride (SODIUM CHLORIDE 0.9%) 250 ML ASDIR PRN IV Physical ExamGeneral appearance: alert, awakeNeck: full range of motion, supple/no meningismusCardiovascular: CV assessment: regular rate and rhythmRespiratory: clear to auscultation, no distressAbdomen: non-tender, normal bowel sounds, no distention, no guarding, no mass/organomegaly, no pulsatile mass, no reboundUpper extremity: UE assessment: normal capillary refill, no edemaLower extremity: LE assessment: normal capillary refill, no edema ResultsFindings/Data:Laboratory Tests 12/067 2102 Chemistry Sodium (134 - 147 mEq/L) 138 Potassium (3.4 - 5.0 mEq/L) 3.9 Chloride (100 - 108 mEq/L) 103 Carbon Dioxide (21 - 33 mEq/l) 27 Anion Gap (0 - 20) 12 BUN (7 - 25 mg/dL) 20 Creatinine (0.6 - 1.3 mg/dL) 0.8 Glomerular Filtr Rate (70 - 80) 95.2 H Glucose (77 - 141 mg/dL) 117 POC Glucose (70 - 110 MG/DL) 190 H Calcium (8.0 - 10.5 mg/dL) 8.9 Magnesium (1.6 - 2.6 mg/dL) 1.72 Laboratory Tests 12/06 0237 Hematology WBC (4.5 - 11.0 x10 3/uL) 12.3 H RBC (4.00 - 5.60 x10 6/uL) 4.13 Hgb (12.5 - 16.9 g/dL) 12.5 Hct (37.5 - 50.7 %) 38.0 MCV (81.0 - 99.0 fL) 92.0 MCH (27.0 - 33.0 pg) 30.3 MCHC (33.0 - 37.0 g/dL) 32.9 L RDW (11.5 - 14.5 %) 13.4 Plt Count (150 - 400 x10 3/uL) 195 MPV (7.0 - 9.0 fL) 12.6 H Neut % (Auto) (56.0 - 77.0 %) 78.2 H Lymph % (Auto) (14.0 - 32.0 %) 12.3 L Donley % (Auto) (4.8 - 9.0 %) 9.0 Eos % (Auto) (0.3 - 3.7 %) 0.0 L Baso % (Auto) (0.0 - 2.0 %) 0.2 Neut # (Auto) (2.0 - 7.6 x10 3/uL) 9.62 H Lymph # (Auto) (1.0 - 3.8 x10 3/uL) 1.51 Donley # (Auto) (0.1 - 0.8 x10 3/uL) 1.11 H Eos # (Auto) (0.0 - 0.2 x10 3/uL) 0.00 Baso # (Auto) (0.0 - 0.2 x10 3/uL) 0.02 Abs Immat Gran (auto) (0.00 - 0.03 x10 3/uL) 0.04 H Immature Gran % (0.0 - 2.0 %) 0.3 Nucleated RBC % (0 - 0 %) 0.0 Nucleated RBCs # (Man) (0.0 - 0.1 x10 3/uL) 0.00 Laboratory Tests 12/06 0237 Chemistry Magnesium (1.6 - 2.6 mg/dL) 1.72 Diagnosis, Assessment Plan Free Text DxA P NotesFree Text DxA P Notes: 1. Coronary artery disease: Status post recent PCI, continue DAPT and statin. 2. Severe left carotid stenosis s/p CEA, postop care per CT surgery. STABLE FROM CARDIAC POINT at 1221 RPT #:[id number] OF REPORTPRProgress ilus3058-67-40W39:20:00G.[id number] able for patient ehwqWAOUPOWLLCVMHP9147-13-29F18:21:50 [facility] 2023-12-06 20:45:00 [id number] mL8b3XyAMdZaZMwHehuIkbV+xn1JH GFV/VwIkQzdwRcUQADAVnZeJf3/9858-86-49R64:45:00 [facility] HospitalCardiology ConsultationREPORT#:[id number] REPORT STATUS: SignedREPORT INITIALIZATION DATE:12/06/23 TIME: 2044 PATIENT: JAYJAY BOYER JR UNIT #: [id number]#: [id number] [address] [birth year] AGE: 68 SEX: M ATTEND: Anurag Muro MDADM AUTHOR: David Candelaria MDREPT SERVICE DT/TIME: 12/06/232044* ALL edits or amendments must be made on the electronic/computer document * History of Present Illness HPIRequesting Clinician: Dr. August for consult:CArdiac evalChief complaint:Is here for CEAPCP:PCP: Jackson Montgomery MD HPI:This is a very pleasant 68-year-old male with past medical history of coronary disease s/p recent PCI, found to have carotid stenosis underwent left CEA and admitted for postop care. Patient denies any chest pain, shortness of breath, difficulty swallowing or speech. History - Adult longitudinalAlcohol use: Denies EtOH useDrug use: Denies recreational drugsSmoking status for patients 13 years old or older: Former SmokerDate last smoked: 11/29/03Packs per day: 2Years smoked: 60Pack years: 120Allergies:Coded Allergies:No Known Allergies (12/04/23) Review of SystemsAdditional notes:As per HPI otherwise negative 12 system point Objective GeneralVS/I O:Vital Signs: Date Time Temp Pulse Resp B/P B/P Pulse O2 O2 Flow FiO2 Mean Ox Delivery Rate 12/05 1830 79 24 129/105 116 96 12/05 1815 77 16 125/51 75 95 / 1800 72 17 116/46 65 95 /08 1745 72 7 112/45 65 93 / 1730 87 33 102/45 66 96 / 1715 87 16 99/46 64 95 / 1700 95 20 112/53 74 94 / 1645 83 17 109/46 65 93 03/08 1630 86 18 115/46 66 93 03/08 1615 91 19 96/47 64 94 03/08 1600 91 16 113/49 68 94 03/08 1545 101 143/59 83 03/08 1530 94 136/60 87 97 03/08 1515 90 16 130/65 88 94 03/08 1319 Nasal 2 cannula 03/08 1300 72 16 125/64 99 Nasal 2 cannula 03/08 1230 72 16 120/61 99 03/08 1200 72 16 133/68 99 03/08 1130 70 16 131/65 99 Nasal 2 cannula 03/08 1100 82 16 134/66 99 03/08 1045 78 16 135/68 99 03/08 1030 86 16 135/60 99 03/08 1015 84 16 143/63 98 03/08 1000 86 16 119/58 98 03/08 0950 82 16 120/58 98 03/08 0940 82 16 126/56 99 03/08 0935 82 16 130/63 98 03/08 0930 82 16 134/64 98 03/08 0925 82 16 131/63 97 03/08 0920 84 16 134/61 98 03/08 0915 82 16 144/67 99 03/08 0910 84 18 142/68 98 03/08 0905 84 16 134/64 98 03/08 0900 82 18 135/71 98 03/08 0855 82 16 134/68 100 03/08 0852 Simple 6 mask 03/08 0850 84 16 133/66 99 03/08 0845 86 18 147/68 96 Nasal 4 cannula 03/08 0840 88 16 150/65 100 03/08 0836 97.8 84 16 153/76 99 Simple 6 mask PATIENT WEIGHT: Weight (lb): 217Weight (oz): 13.07Weight (kg): 98.800 General appearance: alert, awake, orientedHead/Eyes: PERRLAENT: normal noseNeck: S/p left CEA, has drain in placeCardiovascular: CV assessment: regular rate and rhythm, normal heart soundsRespiratory: clear to auscultation, no distressAbdomen: softLower extremity: LE assessment: no cyanosis, no edemaNeuro/ROTARY ENVELOPE MACHINE OPERATOR: alert, oriented X 3, normal speechSkin: dry, intactPsychiatry: normal affect, normal judgment/insight, normal mood, no hallucinationsMedications:Active Meds + DC'd Last 24 HrsAspirin (ASPIRIN) 81 MG DAILY PO Clopidogrel Bisulfate (Plavix) 75 MG DAILY PO Glimepiride (AmaryL) 4 MG DAILY PO Losartan Potassium (COZAAR) 50 MG DAILY PO Levothyroxine Sodium (Synthroid) 25 MCG 0600 PO Atorvastatin Calcium (LIPITOR) 40 MG BEDTIME PO Docusate Sodium (COLACE) 100 MG BID PO Latanoprost (XALATAN 2.5 ML OPHTH SOLN) 1 DROP BEDTIME RIGHT EYE Mupirocin (BACTROBAN 2% 22 GM OINTMENT) 1 APPLIC BID NASAL Hydromorphone HCl (DILAUDID) 0 .STK-MED ONE IV (DC) Metoprolol Succinate (TOPROL XL) 25 MG ASDIR PO (CKD) Acetaminophen (TYLENOL) 650 MG Q4H PRN PRN PO Acetaminophen (TYLENOL) 650 MG Q4H PRN PRN PO Acetaminophen (TYLENOL) 650 MG Q4H PRN PRN RECTAL Bisacodyl (DULCOLAX) 10 MG DAILY PRN PRN RECTAL Hydrocodone Bitart/Acetaminophen (NORCO 5/325) 2 TAB Q4H PRN PRN PO Magnesium Hydroxide (MILK OF MAGNESIA) 30 ML Q6H PRN PRN PO Ondansetron HCl (ZOFRAN) 4 MG Q6H PRN PRN IV Hydromorphone HCl (DILAUDID) 0 .STK-MED ONE .ROUTE (DC) Fentanyl Citrate (SUBLIMAZE) 100 MCG PACU Q10MIN PRN PRN IV (DC) Fentanyl Citrate (SUBLIMAZE) 50 MCG PACU Q10MIN PRN PRN IV (DC) Hydralazine HCl (APRESOLINE) 5 MG PACU Q10MIN PRN PRN IV (DC) Hydrocodone Bitart/Acetaminophen (NORCO 5/325) 1 TAB PACU ONCE PO (DC) Hydromorphone HCl (DILAUDID) 1 MG PACU Q10MIN PRN PRN IV (DC) Hydromorphone HCl (DILAUDID) 0.5 MG PACU Q5MIN PRN PRN IV (DC) Insulin Human Lispro (HUMALOG) 0 PACU ONCE PRN SUBQ (DC) Labetalol HCl (labetalol) 5 MG PACU Q10MIN PRN PRN IV (DC) Meperidine HCl (MEPERIDINE HCL/PF) 12.5 MG PACU ONCE PRN IV (DC) Morphine Sulfate (morphine SULFATE) 2 MG PACU Q10MIN PRN PRN IV (DC) Ondansetron HCl (ZOFRAN) 4 MG PACU ONCE PRN IV (DC) Ropivacaine (NAROPIN 0.5% 150 MG/30mL) 150 MG ASDIR PRN LOCAL (DC) Tramadol HCl (ULTRAM) 50 MG PACU ONCE PO (DC) Fentanyl Citrate (SUBLIMAZE) 0 .STK-MED ONE .ROUTE (DC) Glycopyrrolate (GLYCOPYRROLATE) 0 .STK-MED ONE .ROUTE (DC) Neostigmine Methylsulfate (PROSTIGMIN) 0 .STK-MED ONE .ROUTE (DC) Nicardipine HCl (niCARdipine HCl) 0 .STK-MED ONE IV (DC) Sodium Chloride (SODIUM CHLORIDE 0.9%) 250 ML .STK-MED ONE IV (DC) Fentanyl Citrate (SUBLIMAZE) 0 .STK-MED ONE .ROUTE (DC) Heparin Sodium (HEPARIN SODIUM) 0 .STK-MED ONE .ROUTE (DC) Lidocaine HCl (XYLOCAINE IV) 0 .STK-MED ONE IV (DC) Thrombin (RECOTHROM) 0 .STK-MED ONE TOPICAL (DC) Cefazolin Sodium (KEFZOL OR ANCEF) 0 .STK-MED ONE .ROUTE (DC) Acetaminophen (TYLENOL EXTRA STRENGTH) 1,000 MG PREOP ONCALL PO (CKD) Gabapentin (NEURONTIN) 200 MG PREOP ONCALL PO (CKD) Insulin Human Lispro (HUMALOG) 0 Q4H PRN PRN SUBQ Lactated Ringer's (LACTATED RINGERS) 1,000 ML PREOP ONCALL IV Lidocaine HCl (LIDOCAINE HCL/PF) 2 ML PREOP ONCALL LOCAL Lidocaine HCl (LIDOCAINE HCL/PF) 2 ML PREOP ONCALL LOCAL Sodium Chloride (SODIUM CHLORIDE 0.9%) 500 ML PREOP ONCALL IV Sodium Chloride (SODIUM CHLORIDE 0.9%) 500 ML PREOP ONCALL IV Sodium Chloride (SODIUM CHLORIDE 0.9%) 1,000 ML PREOP ONCALL IV Cefazolin Sodium (KEFZOL OR ANCEF) 2 GM PREOP ONCALL IV (CKD) Sodium Chloride (SODIUM CHLORIDE) 20 ML ASDIR IV Sodium Chloride (SODIUM CHLORIDE) 5 ML ASDIR PRN IV Sodium Chloride (SODIUM CHLORIDE) 10 ML ASDIR PRN IV Sodium Chloride (SODIUM CHLORIDE 0.9%) 250 ML ASDIR PRN IV Physical ExamGeneral appearance: alert, awake, oriented ResultsFindings/Data:Laboratory Tests 12/05 12/05 12/05 1131 0838 0603 Chemistry Sodium (134 - 147 mEq/L) 140 Potassium (3.4 - 5.0 mEq/L) 4.3 Chloride (100 - 108 mEq/L) 106 Carbon Dioxide (21 - 33 mEq/l) 25 Anion Gap (0 - 20) 13 BUN (7 - 25 mg/dL) 15 Creatinine (0.6 - 1.3 mg/dL) 0.8 Glomerular Filtr Rate (70 - 80) 95.2 H Glucose (77 - 141 mg/dL) 163 H POC Glucose (70 - 110 MG/DL) 155 H 127 H Calcium (8.0 - 10.5 mg/dL) 8.4 Laboratory Tests 12/05 0741 Coagulation Activated Coag Time (74 - 137 SEC) 293 H Laboratory Tests 12/05 1131 Hematology Hgb (12.5 - 16.9 g/dL) 13.3 Hct (37.5 - 50.7 %) 40.5 Diagnosis, Assessment Plan Free Text DxA P NotesFree Text DxA P Notes: 1. Coronary artery disease: Status post recent PCI, continue DAPT and statin. 2. Severe left carotid stenosis s/p CEA, postop care per CT surgery. at 0816 [facility] #:[id number] OF REPORTRMDynwqkcnjykx0733-74-20T21:45:00G.PDOC2 [id number] for patient hsrhAAGBBUZIEIJMRH4705-16-33Z09:16:39 [facility] 2023-12-06 17:47:00 [id number] uTwNSqK7cOv8BDmOQEklybbC3wKDB WSAEPK33kaJd8j25dLF0ljk0/by0558-37-35H56:47:64591 9-[address] [place], [place] [address] PATIENT NAME: JAYJAY BOYER JR ADMIT DATE: 12/06/23ACCOUNT NO: [id number] ROOM NO: G.2203 AGE: 68 REPORT TYPE: OPERATIVE REPORT SEX: M ADMITTING PHYSICIAN:Anurag Muro MD ATTENDING PHYSICIAN:Anurag Muro MD OPERATION DATE: 12/06/2023 PREOPERATIVE DIAGNOSIS: Severe asymptomatic left internal carotid artery stenosis. POSTOPERATIVE DIAGNOSIS: Severe asymptomatic left internal carotid artery stenosis. OPERATION: Left carotid endarterectomy. SURGEON: Simone Muro M.D. CLIENT SERVICE EXECUTIVE: Chay Mcneal. ANESTHESIOLOGIST: Dr. Mccollum. ANESTHESIA: General endotracheal anesthesia. ESTIMATED BLOOD LOSS: 20 mL INDICATIONS: Mr. Boyer is a very pleasant 68-year-old gentleman who was recentlyfound to have severe asymptomatic left internal carotid artery stenosis. After due preop counseling, he was brought to the operating room today for left carotid endarterectomy. FINDINGS:1. Calcified plaque at the bifurcation of the left common carotid artery leading to a pinhole opening in the left internal quality artery.2. Good endpoint in the left internal carotid artery following endarterectomy.3. The hypoglossal nerve was identified and protected throughout the procedure.4. The tongue was in the midline. The patient was moving all extremities at the end of procedure. DESCRIPTION OF PROCEDURE: Mr. Boyer was identified in the preoperative holding area and brought to the operating room and placed supine on the operating table. A timeout procedure was performed. After induction of general endotracheal anesthesia, the left side of the neck was prepped and draped in standard surgical fashion. A 4 cm incision was made along the anterior border of the middle third of the left sternocleidomastoid. The platysma was divided with Bovie cautery. The deep cervical fascia was opened. The fascial was identified, dissected and ligated and divided. Hypoglossal nerve was identifiedand protected throughout the procedure. The left common carotid artery, the left internal carotid artery, the left external carotid antibiotics were PATIENT NAME: JAYJAY BOYER JR identified, dissected and isolated. The patient was heparinized with 7000 unitsof heparin, after waiting for 3 minutes the bifurcation of the left common carotid artery was isolated between 3 profunda clamp. Arteriotomy was performed. The left common carotid artery along the long axis and extended ontothe left internal carotid artery using Kay scissors. Next, using a Tullos dissector, endarterectomy of the left common and internal carotid artery was performed. Endarterectomy of the left external carotid artery was performed using eversion technique. The patient's cerebral oximetry stayed stable and hence I decided not to use shunt. There was a good endpoint in the left internal carotid artery following endarterectomy. Patch repair of the left common and internal carotid artery was performed using a bovine pericardial patch using running 6-0 Prolene suture. Prior to tying the patch down, careful de-aeration was performed. Next, a 7 KARINA drain was placed in the wound. Hemostasis was confirmed and the neck was closed in layers using #2 Vicryl for platysma, 4-0 Vicryl for skin. The patient was extubated in the operating room and moved to PACU in stable condition. All needle and sponge counts were reported to be correct at the end of the case. Dictated By: Simone Muro MD Date Dictated: 12/06/2023 17:47:32Date Transcribed: 12/06/2023 21:25:08LINDSEY/SEFERINO/Margret #: [id number] ID: [id number] by Anurag Muro MD On 12/15/2023 07:03:35 AM at 0703 PATIENT NAME: JAYJAY BOYER moctfz7397-55-41N16:25:00G.[id number] lable for patient pattBYFTULPOKXMNFR7299-76-22V30:53:41 [facility] 2023-12-06 17:42:00 [id number] SP4db/C0/u4t2atmY2aEx7fnFhFQh UVgnFIkll/fKxcJ0bXoeTostRMT8218-60-36S46:42:00 [facility] ([facility])Op/Inv Procedure Note - BriefREPORT#:[id number] REPORT STATUS: SignedREPORT INITIALIZATION DATE:12/06/23 TIME: 1741 PATIENT: JAYJAY BOYER JR UNIT #: [id number]#: [id number] [address] [birth year] AGE: 68 SEX: M ATTEND: Anurag Muro MDADM AUTHOR: Aunrag Muro MDREPT SERVICE DT/TIME: 12/06/231741* ALL edits or amendments must be made on the electronic/computer document * Op/Inv Proc Note - Brief TEXT Brief Op/Inv Procedure NoteNote details:*PRE-PROCEDURE DIAGNOSIS:[] Severe asymptomatic left carotid artery stenosis *POST-PROCEDURE DIAGNOSIS:Same[] *PROCEDURE(S) PERFORMED:[] Left carotid endarterectomy *PRIMARY SURGEON:[]Bhaskar *CLIENT SERVICE EXECUTIVE(S):[]Chay Mcneal ANESTHETIC:[]GETA *ESTIMATED BLOOD LOSS in ml's:[]20 cc *SPECIMEN(S) REMOVED:[]Calcified*COMPLICATIONS:None[] DRAIN(S):None[] 7 KARINA TUBE(S):None[] IMPLANT(S):Bovine pericardialFLUIDS:[] DISPOSITION:To CVICU at 1749 RPT #:[id number] OF REPORTPNProcedure jigp3594-24-77L64:42:00G.[id number] able for patient ixymECTFTFBBTFQPJA3309-04-34R64:49:31 [facility] 2023-12-06 15:18:00 [id number] 0/+2nhcbGaJEJ9gEGTycYsrHPeb4C OBK7X7WPi3FiTm4z9e2K3Q3Xxqz1407-59-00A92:18:00 [facility] ([facility])Critical Care Consult NoteREPORT#:[id number] REPORT STATUS: SignedREPORT INITIALIZATION DATE:12/06/23 TIME: 151 PATIENT: JAYJAY BOYER JR UNIT #: [id number]#: [id number] ROOM/BED: 2203-1DOB: [birth year] AGE: 68 SEX: M ATTEND: Anurag Muro MDADM AUTHOR: Nazario Henriquez MDREPT SERVICE DT/TIME: 12/06/23 6547* ALL edits or amendments must be made on the electronic/computer document * History of Present Illness HPIRequesting clinician: Dr August for consult:Critical care managementChief complaint:Left carotid stenosis s/p left CEA PCP:PCP: Jackson Montgomery MD HPI:68-year-old gentleman with history of CAD status post recent PCI, severe left carotid stenosis underwent left CEA today. Patient complaining of some pain in his left carotid area. He has a left carotid drain in place. Denying any numbness or pain. No difficulty swallowing. No headache or dizziness. No chest pain or shortness of breath. History - Adult longitudinalPast medical history:Reports: Coronary artery disease. Additional medical history:left carotid artery stenosisPast surgical history:Reports: PCI. Alcohol use: Denies EtOH useDrug use: Denies recreational drugsSmoking status for patients 13 years old or older: Former SmokerDate last smoked: 11/28/Packs per day: 2Years smoked: 60Pack years: 120Allergies:Coded Allergies:No Known Allergies (12/04/23) Review of Systems ROSAdditional notes:10 point system reviewed were negative except mentioned HPI Objective Physical ExamVS/I O:Last Documented: Result Date Time O2 Delivery Nasal cannula 12/05 1319 O2 Flow Rate 2 12/05 1319 Pulse Ox 99 12/05 1300 B/P 125/64 12/05 1300 Pulse 72 12/05 1300 Resp 16 12/05 1300 Temp 36.6 12/05 0836 Patient Weight and BMI Weight (kg): 98.800 BMI: 34.1 Medications:Active Meds + DC'd Last 24 HrsAspirin (ASPIRIN) 81 MG DAILY PO Clopidogrel Bisulfate (Plavix) 75 MG DAILY PO Glimepiride (AmaryL) 4 MG DAILY PO Losartan Potassium (COZAAR) 50 MG DAILY PO Levothyroxine Sodium (Synthroid) 25 MCG 0600 PO Atorvastatin Calcium (LIPITOR) 40 MG BEDTIME PO Docusate Sodium (COLACE) 100 MG BID PO Latanoprost (XALATAN 2.5 ML OPHTH SOLN) 1 DROP BEDTIME RIGHT EYE Mupirocin (BACTROBAN 2% 22 GM OINTMENT) 1 APPLIC BID NASAL Hydromorphone HCl (DILAUDID) 0 .STK-MED ONE IV (DC) Metoprolol Succinate (TOPROL XL) 25 MG ASDIR PO (CKD) Acetaminophen (TYLENOL) 650 MG Q4H PRN PRN PO Acetaminophen (TYLENOL) 650 MG Q4H PRN PRN PO Acetaminophen (TYLENOL) 650 MG Q4H PRN PRN RECTAL Bisacodyl (DULCOLAX) 10 MG DAILY PRN PRN RECTAL Hydrocodone Bitart/Acetaminophen (NORCO 5/325) 2 TAB Q4H PRN PRN PO Magnesium Hydroxide (MILK OF MAGNESIA) 30 ML Q6H PRN PRN PO Ondansetron HCl (ZOFRAN) 4 MG Q6H PRN PRN IV Hydromorphone HCl (DILAUDID) 0 .STK-MED ONE .ROUTE (DC) Fentanyl Citrate (SUBLIMAZE) 100 MCG PACU Q10MIN PRN PRN IV Fentanyl Citrate (SUBLIMAZE) 50 MCG PACU Q10MIN PRN PRN IV Hydralazine HCl (APRESOLINE) 5 MG PACU Q10MIN PRN PRN IV Hydrocodone Bitart/Acetaminophen (NORCO 5/325) 1 TAB PACU ONCE PO (CKD) Hydromorphone HCl (DILAUDID) 1 MG PACU Q10MIN PRN PRN IV Hydromorphone HCl (DILAUDID) 0.5 MG PACU Q5MIN PRN PRN IV Insulin Human Lispro (HUMALOG) 0 PACU ONCE PRN SUBQ Labetalol HCl (labetalol) 5 MG PACU Q10MIN PRN PRN IV Meperidine HCl (MEPERIDINE HCL/PF) 12.5 MG PACU ONCE PRN IV Morphine Sulfate (morphine SULFATE) 2 MG PACU Q10MIN PRN PRN IV Ondansetron HCl (ZOFRAN) 4 MG PACU ONCE PRN IV Ropivacaine (NAROPIN 0.5% 150 MG/30mL) 150 MG ASDIR PRN LOCAL Tramadol HCl (ULTRAM) 50 MG PACU ONCE PO (CKD) Fentanyl Citrate (SUBLIMAZE) 0 .STK-MED ONE .ROUTE (DC) Glycopyrrolate (GLYCOPYRROLATE) 0 .STK-MED ONE .ROUTE (DC) Neostigmine Methylsulfate (PROSTIGMIN) 0 .STK-MED ONE .ROUTE (DC) Nicardipine HCl (niCARdipine HCl) 0 .STK-MED ONE IV (DC) Sodium Chloride (SODIUM CHLORIDE 0.9%) 250 ML .STK-MED ONE IV (DC) Fentanyl Citrate (SUBLIMAZE) 0 .STK-MED ONE .ROUTE (DC) Heparin Sodium (HEPARIN SODIUM) 0 .STK-MED ONE .ROUTE (DC) Lidocaine HCl (XYLOCAINE IV) 0 .STK-MED ONE IV (DC) Thrombin (RECOTHROM) 0 .STK-MED ONE TOPICAL (DC) Cefazolin Sodium (KEFZOL OR ANCEF) 0 .STK-MED ONE .ROUTE (DC) Acetaminophen (TYLENOL EXTRA STRENGTH) 1,000 MG PREOP ONCALL PO (CKD) Gabapentin (NEURONTIN) 200 MG PREOP ONCALL PO (CKD) Insulin Human Lispro (HUMALOG) 0 Q4H PRN PRN SUBQ Lactated Ringer's (LACTATED RINGERS) 1,000 ML PREOP ONCALL IV Lidocaine HCl (LIDOCAINE HCL/PF) 2 ML PREOP ONCALL LOCAL Lidocaine HCl (LIDOCAINE HCL/PF) 2 ML PREOP ONCALL LOCAL Sodium Chloride (SODIUM CHLORIDE 0.9%) 500 ML PREOP ONCALL IV Sodium Chloride (SODIUM CHLORIDE 0.9%) 500 ML PREOP ONCALL IV Sodium Chloride (SODIUM CHLORIDE 0.9%) 1,000 ML PREOP ONCALL IV Cefazolin Sodium (KEFZOL OR ANCEF) 2 GM PREOP ONCALL IV (CKD) Sodium Chloride (SODIUM CHLORIDE) 20 ML ASDIR IV Sodium Chloride (SODIUM CHLORIDE) 5 ML ASDIR PRN IV Sodium Chloride (SODIUM CHLORIDE) 10 ML ASDIR PRN IV Sodium Chloride (SODIUM CHLORIDE 0.9%) 250 ML ASDIR PRN IV ResultsFindings/Data:Laboratory Tests 12/06/23 1131:[Embedded Image Not Available]Laboratory Tests 12/05 12/05 12/05 1131 [id number] [id number] Chemistry Sodium (134 - 147 mEq/L) 140 Potassium (3.4 - 5.0 mEq/L) 4.3 Chloride (100 - 108 mEq/L) 106 Carbon Dioxide (21 - 33 mEq/l) 25 Anion Gap (0 - 20) 13 BUN (7 - 25 mg/dL) 15 Creatinine (0.6 - 1.3 mg/dL) 0.8 Glomerular Filtr Rate (70 - 80) 95.2 H Glucose (77 - 141 mg/dL) 163 H POC Glucose (70 - 110 MG/DL) 155 H 127 H Calcium (8.0 - 10.5 mg/dL) 8.4 Laboratory Tests 12/05 0741 Coagulation Activated Coag Time (74 - 137 SEC) 293 H Laboratory Tests 12/05 1131 Hematology Hgb (12.5 - 16.9 g/dL) 13.3 Hct (37.5 - 50.7 %) 40.5 Microbiology:12/03 110 NASAL: MSSA Surveillance Screen - COMP12/03 1102 NASAL: MRSA DNA Surveillance Screen - COMP Free Text Obj NotesFree Text Obj Notes:Elderly male lying in bed not in acute distressPupil equal react lightNeck supple, left carotid drainChest clearHeart S1-L2Qmopidq soft, bowel sounds presentExtremities no edemaCNS intact Diagnosis, Assessment PlanFree text DxA P:Severe left carotid stenosis s/p left CEAPostoperative painCAD Patient underwent left CEA for severe stenosis. GB drain in place, monitor output. Monitor H H. Monitor blood pressure. Pain control. Resume home medication. Continuous nurse monitoring. Neurovascular check. Monitor closely in ICU. Case was discussed at bedside with the patient and nursing staff. at 1747 RPT #:[id number] OF [id number]:18:00G.PDOC2 [id number] for patient [id number]:48:02 [facility] 2023-12-06 10:03:00 [id number]+ [id number]:03:00 [facility] ([facility])History Physical - AdultREPORT#:[id number] REPORT STATUS: SignedREPORT INITIALIZATION DATE:12/06/23 TIME: 100 PATIENT: JAYJAY BOYER JR UNIT #: [id number]#: [id number] ROOM/BED: 2203-1DOB: [birth year] AGE: 68 SEX: M ATTEND: Anurag Muro MDADM AUTHOR: Anurag Muro MDREPT SERVICE DT/TIME: 12/06/23 1003* ALL edits or amendments must be made on the electronic/computer document * History of Present Illness HPIChief complaint:Left Carotid artery stenosisPCP:PCP: Jackson Montgomery MD HPI:This is a very pleasant 68 year old gentleman with a medical history of coronaryartery disease with previous PCI of the LAD about 6 months ago who was found to have severe left common carotid artery stenosis 80-90% on recent angiogram. Patient has right carotid stenosis of 20-30%.I have discussed with the patient the surgery, risks involved, benefits, alternatives, and complications. Patient verbalized understanding and willing toproceed with surgery. All questions were answered. Patient is being admitted today for left carotid endarterectomy. HistoryPast medical history:Reports: Coronary artery disease. Additional medical history:left carotid artery stenosisPast surgical history:Reports: PCI. Alcohol use: Denies EtOH useDrug use: Denies recreational drugsSmoking status for patients 13 years old or older: Former SmokerDate last smoked: 11/29/03Packs per day: 2Years smoked: 60Pack years: 120 Medication/Allergy-Vaccine HxMedications:Home Medications:Medication Dose/Rte/Freq Days Qty Entered Last Max Daily Dose Reviewed EMPAGLIFLOZIN 25 MG PO DAILY 12/04/23 (JARDIANCE) 1112Strength: 25 MG TAB CHOLECALCIFEROL 50,000 UNIT PO Q7D 12/04/23 (VITAMIN D3) 1113 (VITAMIN D3)Strength: 1,250 MCG (50,000UNIT) CAP CLOPIDOGREL (PLAVIX) 75 MG PO DAILY 12/04/23Strength: 75 MG TAB 1113 LEVOTHYROXINE 25 MCG PO DAILY 12/04/23 (SYNTHROID) 1113Strength: 25 MCG TAB LOSARTAN (COZAAR) 50 MG PO DAILY 12/04/23Strength: 50 MG TAB 1114 GLIMEPIRIDE (AMARYL) 4 MG PO DAILY 12/04/23Strength: 4 MG TAB 1115 METOPROLOL SUCC XL 25 MG PO ASDIR 12/04/23 (TOPROL XL) 1116Strength: 25 MG TAB.SR.24H ATORVASTATIN (LIPITOR) 40 MG PO BEDTIME 12/04/23Strength: 40 MG TAB 1116 metFORMIN (GLUCOPHAGE) 1,000 MG PO BID 12/04/23Strength: 1,000 MG TAB 1117 PILOCARPINE 1 DROP RIGHT EYE 12/04/23 (ISOPTO CARPINE 1% TID 1118 OPHTH SOLN)Strength: 1 % OPHTH.SOLN LATANOPROST 1 DROP RIGHT EYE 12/04/23 (XALATAN 0.005% OPHTH BEDTIME 1119 SOLN)Strength: 0.005 %OPHTH.SOLN Current Hospital Medications:Anti-Infective Agents Sig/Luz Maria Start time Last Medication Dose Route Stop Time Status Admin Cefazolin Sodium 0 .STK-MED ONE 12/05 0522 DC (KEFZOL OR ANCEF) .ROUTE Cefazolin Sodium 2 GM PREOP ONCALL 12/03 1245 CKD (KEFZOL OR ANCEF) IV 12/10 1244 Autonomic Drugs Sig/Luz Maria Start time Last Medication Dose Route Stop Time Status Admin Glycopyrrolate 0 .STK-MED ONE 12/05 0747 DC (GLYCOPYRROLATE) .ROUTE Neostigmine 0 .STK-MED ONE 12/05 0747 DC Methylsulfate .ROUTE (PROSTIGMIN) Blood Formation,Coagulation Sig/Luz Maria Start time Last Medication Dose Route Stop Time Status Admin Clopidogrel Bisulfate 75 MG DAILY 12/06 899 UNV (Plavix) PO 03/06 0859 Heparin Sodium 0 .STK-MED ONE 12/05 0640 DC (HEPARIN SODIUM) .ROUTE Thrombin 0 .STK-MED ONE 12/05 0640 DC (RECOTHROM) TOPICAL Cardiovascular Drugs Sig/Luz Maria Start time Last Medication Dose Route Stop Time Status Admin Losartan Potassium 50 MG DAILY 12/06 899 UNV (COZAAR) PO 03/06 0859 Atorvastatin Calcium 40 MG BEDTIME 12/05 2100 UNV (LIPITOR) PO 01/04 205 Metoprolol Succinate 25 MG ASDIR 12/05 1015 UNV (TOPROL XL) PO 03/05 1014 Hydralazine HCl 5 MG PACU Q10MIN PRN PRN 12/05 0900 AC (APRESOLINE) IV 12/05 185 Labetalol HCl 5 MG PACU Q10MIN PRN PRN 12/05 0900 AC (labetalol) IV 12/05 185 Nicardipine HCl 0 .STK-MED ONE 12/05 0729 DC (niCARdipine HCl) IV Lidocaine HCl 0 .STK-MED ONE 12/05 0640 DC (XYLOCAINE IV) IV Lidocaine HCl 2 ML PREOP ONCALL 12/05 0500 AC (LIDOCAINE HCL/PF) LOCAL 12/05 235 Lidocaine HCl 2 ML PREOP ONCALL 12/05 0500 AC (LIDOCAINE HCL/PF) LOCAL 12/05 2359 Central Nervous System Agents Sig/Luz Maria Start time Last Medication Dose Route Stop Time Status Admin Aspirin 81 MG DAILY 12/06 0900 UNV (ASPIRIN) PO 03/06 0859 Acetaminophen 650 MG Q4H PRN PRN 12/05 1000 UNV (TYLENOL) PO 03/05 0959 Acetaminophen 650 MG Q4H PRN PRN 12/05 1000 UNV (TYLENOL) PO 03/05 0959 Acetaminophen 650 MG Q4H PRN PRN 12/05 1000 UNV (TYLENOL) RECTAL 03/05 0959 Hydrocodone Bitart/ 2 TAB Q4H PRN PRN 12/05 1000 UNV Acetaminophen PO 12/10 0959 (NORCO 5/325) Hydromorphone HCl 0 .STK-MED ONE 12/05 0953 DC (DILAUDID) .ROUTE Fentanyl Citrate 100 MCG PACU Q10MIN PRN PRN 12/05 0900 AC (SUBLIMAZE) IV 12/05 185 Fentanyl Citrate 50 MCG PACU Q10MIN PRN PRN 12/05 0900 AC 12/05 (SUBLIMAZE) IV 12/05 1855 0910 Hydrocodone Bitart/ 1 TAB PACU ONCE 12/05 0900 CKD Acetaminophen PO 12/05 1855 (NORCO 5/325) Hydromorphone HCl 1 MG PACU Q10MIN PRN PRN 12/05 0900 AC (DILAUDID) IV 12/05 185 Hydromorphone HCl 0.5 MG PACU Q5MIN PRN PRN 12/05 09 AC 12/05 (DILAUDID) IV 12/05 185 0956 Meperidine HCl 12.5 MG PACU ONCE PRN 12/05 899 AC (MEPERIDINE HCL/PF) IV 12/05 185 Morphine Sulfate 2 MG PACU Q10MIN PRN PRN 12/05 899 AC (morphine SULFATE) IV 12/05 185 Tramadol HCl 50 MG PACU ONCE 12/05 899 CKD (ULTRAM) PO 12/05 185 Fentanyl Citrate 0 .STK-MED ONE 12/05 0859 DC (SUBLIMAZE) .ROUTE Fentanyl Citrate 0 .STK-MED ONE 12/05 0652 DC (SUBLIMAZE) .ROUTE Acetaminophen 1,000 MG PREOP ONCALL 12/05 0500 CKD (TYLENOL EXTRA PO 12/05 235 STRENGTH) Gabapentin 200 MG PREOP ONCALL 12/05 050 CKD (NEURONTIN) PO 12/05 235 Electrolytic, Caloric, And Ani Sig/Luz Maria Start time Last Medication Dose Route Stop Time Status Admin Sodium Chloride 250 ML .STK-MED ONE 12/05 0729 DC (SODIUM CHLORIDE IV 0.9%) Lactated Ringer's 1,000 ML PREOP ONCALL 12/05 0500 AC (LACTATED RINGERS) IV 12/05 235 Sodium Chloride 500 ML PREOP ONCALL 12/05 0500 AC (SODIUM CHLORIDE IV 12/05 235 0.9%) Sodium Chloride 500 ML PREOP ONCALL 12/05 0500 AC (SODIUM CHLORIDE IV 12/05 2358 0.9%) Sodium Chloride 1,000 ML PREOP ONCALL 12/05 0500 AC (SODIUM CHLORIDE IV 12/05 235 0.9%) Sodium Chloride 20 ML ASDIR 12/03 1245 AC (SODIUM CHLORIDE) IV 03/03 1244 Sodium Chloride 5 ML ASDIR PRN 12/03 1200 AC (SODIUM CHLORIDE) IV 03/03 1159 Sodium Chloride 10 ML ASDIR PRN 12/03 1200 AC (SODIUM CHLORIDE) IV 03/03 1159 Sodium Chloride 250 ML ASDIR PRN 12/03 1200 AC (SODIUM CHLORIDE IV 03/03 1159 0.9%) Eye, Ear, Nose And Throat (Een Sig/Luz Maria Start time Last Medication Dose Route Stop Time Status Admin Latanoprost 1 DROP BEDTIME 12/05 2100 UNV (XALATAN 2.5 ML RIGHT EYE 03/05 2059 OPHTH [facility]) Gastrointestinal Drugs Sig/Luz Maria Start time Last Medication Dose Route Stop Time Status Admin Docusate Sodium 100 MG BID 12/05 2100 UNV (COLACE) PO 03/05 205 Bisacodyl 10 MG DAILY PRN PRN 12/05 1000 UNV (DULCOLAX) RECTAL 03/05 0959 Magnesium Hydroxide 30 ML Q6H PRN PRN 12/05 1000 UNV (MILK OF MAGNESIA) PO 03/05 0959 Ondansetron HCl 4 MG Q6H PRN PRN 12/05 1000 UNV (ZOFRAN) IV 03/05 0959 Ondansetron HCl 4 MG PACU ONCE PRN 12/05 0900 AC (ZOFRAN) IV 12/05 1855 Hormones And Synthetic Substit Sig/Luz Maria Start time Last Medication Dose Route Stop Time Status Admin Glimepiride 4 MG DAILY 12/06 09 UNV (AmaryL) PO 03/06 0859 Levothyroxine Sodium 25 MCG DAILY 12/06 09 UNV (Synthroid) PO 03/06 0859 Insulin Human Lispro 0 PACU ONCE PRN 12/05 0900 AC (HUMALOG) SUBQ 12/05 1855 Insulin Human Lispro 0 Q4H PRN PRN 12/05 0500 AC (HUMALOG) SUBQ 12/05 2359 Local Anesthetics (Parenteral) Sig/Luz Maria Start time Last Medication Dose Route Stop Time Status Admin Ropivacaine 150 MG ASDIR PRN 12/05 0900 AC (NAROPIN 0.5% 150 MG/ LOCAL 12/05 1855 30mL) Skin And Mucous Membrane Agent Sig/Luz Maria Start time Last Medication Dose Route Stop Time Status Admin Mupirocin 1 APPLIC BID 12/05 2100 UNV (BACTROBAN 2% 22 GM NASAL 12/10 0901 OINTMENT) Allergies:Coded Allergies:No Known Allergies (12/04/23) Pt reports no significant: past surgical history, family history Review of SystemsConstitutional:Denies: chills, fatigue, fever. Skin:Denies: abrasion, bruising, contusion. Allergy/Immun:Denies: allergic reaction, anaphylaxis, hives. Eyes:Denies: redness, discharge, visual loss/blurred. Respiratory:Denies: BARKER (dyspnea on exertion), pneumonia. Cardiovascular:Denies: chest pain, palpitations. GI:Denies: abdominal pain, nausea, vomiting. :Denies: dysuria, flank pain. Heme:Denies: adenopathy, bleeding, bruising. Neuro:Denies: confusion, dizziness, syncope. All systems rev neg: except as marked Physical ExamVS/I OVital Signs: Date Time Temp Pulse Resp B/P B/P Pulse O2 O2 Flow FiO2 Mean Ox Delivery Rate 12/05 1000 86 16 119/58 98 03/08 0950 82 16 120/58 98 /08 0940 82 16 126/56 99 03/08 0935 82 16 130/63 98 /08 0930 82 16 134/64 98 03/08 0925 82 16 131/63 97 03/08 0920 84 16 134/61 98 03/08 0915 82 16 144/67 99 03/08 0910 84 18 142/68 98 03/08 0905 84 16 134/64 98 03/08 0900 82 18 135/71 98 03/08 0855 82 16 134/68 100 03/08 0852 Simple 6 mask / 0850 84 16 133/66 99 03/08 0845 86 18 147/68 96 Nasal 4 cannula 12/05 0840 88 16 150/65 100 03/08 0836 36.6 84 16 153/76 99 Simple 6 mask PATIENT WEIGHT: Weight (lb): 217Weight (oz): 13.07Weight (kg): 98.800 General appearance: alert, awake, orientedHead/Eyes: atraumatic, clear cornea, normocephalicENT: moist mucosal membranesNeck: full range of motion, non-tenderCardiovascular: regular rate rhythm, normal heart soundsRespiratory: clear to auscultation, aerating well, symmetric expansionAbdomen/GI: active bowel sounds, softGenitourinary: no flank painExtremities: moves all, normal range of motionMusculoskeletal: full range of motion, normal inspectionNeuro/ROTARY ENVELOPE MACHINE OPERATOR: alert, oriented X 3Skin: dry, intact ResultsFindings/Data:Laboratory Tests: 12/05 12/05 0741 0603 Chemistry POC Glucose (70 - 110 MG/DL) 127 H Coagulation Activated Coag Time (74 - 137 SEC) 293 H Results: labs reviewed, vital signs reviewed, vital signs stable, current med profile rev'd Diagnosis, Assessment Plan Free Text DxA P NotesFree Text DxA P Notes:This is a very pleasant 68 year old gentleman with a medical history of coronaryartery disease with previous PCI of the LAD about 6 months ago who was found to have severe left common carotid artery stenosis 80-90% on recent angiogram. Patient has right carotid stenosis of 20-30%.I have discussed with the patient the surgery, risks involved, benefits, alternatives, and complications. Patient verbalized understanding and willing toproceed with surgery. All questions were answered. Patient is being admitted today for left carotid endarterectomy. Admit to CCUPost op careMonitor neuro status and heart rhythmCritical care consulted at 0940 RPT #:[id number] OF REPORTHPHistory and physical obhiwzfowss4732-13-54S65:03:00G.[id number] AVAvailable for patient [id number]:41:29 [facility] 2023-12-04 11:13:00 [id number]/LT1YLiLRxWj [id number]-33-26F48:13:70327 6-0039 [place] [address] PATIENT NAME: JAYJAY BOYER JR ADMIT DATE: ACCOUNT NO: [id number] ROOM NO: AGE: 68 REPORT TYPE: eELECTROCARDIOGRAM REPORT SEX: M ADMITTING PHYSICIAN:Anurag Muro MD ATTENDING PHYSICIAN:Anurag Muro MD Order:[id number] Reason : PREOP Test Date/Time Stamp:SatDec 04 2023 11:13:08Blood Pressure : / mmHGVent. Rate : 067 BPM Atrial Rate : 067 BPM P-R Int : 094 ms QRS Dur : 094 ms QT Int : 386 ms P-R-T Axes : -12 018 -25 degrees QTc Int : 407 ms Sinus rhythm with short PRMinimal voltage criteria for LVH, may be normal variantNonspecific T wave abnormalityOtherwise normal ECGNo previous ECGs availableConfirmed by MD KENTRELL, BUBBA ([id number]) on 12/04/2023 1:06:08 PM Referred By: Anurag Muro Confirmed by:BUBBA VAUGHN MD at 1306 PATIENT NAME: JAYJAY BOYER .[id number] AVAvailable for patient [id number]:06:35 [facility]
[2024-01-23 17:16] LABS: Absolute Basophils 0.1 K/uL (0-0.5); Absolute Eosinophils 0.1 K/uL (0-0.5); Absolute Lymphocytes (CBC) 1.6 K/uL (0.7-4.9); Absolute Monocytes 0.6 K/uL (0.1-1.3); Absolute Neutrophil 8.2 K/uL (1.8-8.0); Basophils % 1.3 % (0-1.3); Eosinophils % 0.6 % (0-4.4); Hematocrit 43.5 % (39.6-49.0); Hemoglobin 14.4 g/dL (13.6-17.9); Lymphocytes % 15.2 % (15.3-44.8); MCH 30.8 pg (27.0-35.0); MCV 93.2 fL (80-100); Neutrophils % 76.9 % (41.7-73.7); Platelets 212 thou/uL (152-406); RBC Red Blood Cell Count 4.66 M/uL (4.33-5.43); Red Cell Distribution Width 14.2 % (12.1-15.2)
[2024-01-23 17:32] LABS: Anion Gap 10.9 mEq/L (5.0-15.0); Potassium 3.9 mEq/L (3.5-5.1)
--- NOTE | 2024-01-23 18:07 | RAD REPORT ---
EXAM DESCRIPTION: US - Lower Extremity Artery Uni Ltd - 01/23/2024 5:30 pm CLINICAL HISTORY: PAIN COMPARISON: No comparisons TECHNIQUE: Left lower extremity arterial Doppler examination was performed with waveform tracing. FINDINGS: Triphasic waveforms are seen throughout the left lower extremity arterial system to the level of the dorsalis pedis artery, with the exception of the left posterior tibial artery which shows monophasic flow. Up to moderate atherosclerotic plaque burden. IMPRESSION: Dzvh-sa-akyjsuzb left lower extremity peripheral vascular disease.
--- NOTE | 2024-01-23 18:11 | RAD REPORT ---
EXAM DESCRIPTION: US - Extremity Venous Uni Ltd - 01/23/2024 5:29 pm CLINICAL HISTORY: Pain, swelling COMPARISON: None. TECHNIQUE: Real-time sonographic evaluation of the left lower extremity deep venous system was perfo rmed. FINDINGS: Normal compressibility, flow augmentation, phasic flow and spontaneous flow is identified in the left lower extremity deep venous system. No intraluminal filling defects seen. IMPRESSION: No DVT in the left lower extremity.
--- NOTE | 2024-01-23 18:14 | RAD REPORT ---
EXAM DESCRIPTION: RAD - Tib Fib Left - 01/23/2024 5:52 pm CLINICAL HISTORY: open wound COMPARISON: No comparisons TECHNIQUE: Left tibia and fibula, 2 views. FINDINGS: No fracture is identified. Joint alignment is maintained. Marginal spurring and adjacent m ineralization in the soft tissues at the level of the lateral malleolus may relate to sequelae of rem ote trauma or heterotopic ossification. There is no dislocation or periosteal reaction noted. Vascular calcifications. No foreign body or oth er soft tissue abnormality. IMPRESSION: No acute osseus abnormality. Chronic findings as above. .
--- NOTE | 2024-01-23 18:36 | ER ---
Nurse's Notes [facility] Name: Farhan Boyer Jr Age: 68 yrs Sex: Male : 1955 Arrival Date: 01/23/2024 Time: 15:23 Bed 9 Private MD: Diagnosis: Leg Laceration/ Open wound of lower leg Presentation: 01/22 15:45 Chief complaint: Patient states: wound on left oden that he noticed on Saturday , started iw antibiotics on Saturday , not getting better, daughter wanted him to get checked out. Coronavirus screen: At this time, the client does not indicate any symptoms associated with coronavirus-19. Ebola Screen: Patient negative for fever greater than or equal to 101.5 degrees Fahrenheit, and additional compatible Ebola Virus Disease symptoms Patient denies exposure to infectious person. Patient denies travel to an Ebola-affected area in the 21 days before illness onset. No symptoms or risks identified at this time. Initial Sepsis Screen: Does the patient meet any 2 criteria? No. Patient's initial sepsis screen is negative. Does the patient have a suspected source of infection? No. Patient's initial sepsis screen is negative. Risk Assessment: Do you want to hurt yourself or someone else? Patient reports no desire to harm self or others. Onset of symptoms was January 18, 2024. 15:45 Method Of Arrival: Ambulatory iw 15:45 Acuity: SUE 3 iw Historical: - Allergies: 15:46 No Known Allergies; iw - PMHx: 15:46 Diabetes - NIDDM; Hypercholesterolemia; Hypertension; Hypothyroidism; iw - PSHx: 15:46 Stented artery; Carotid sx; iw - Immunization history:: Adult Immunizations unknown. - Infectious Disease History:: Denies. - Social history:: Smoking status: unknown. Screenin:30 [facility] ED Fall Risk Assessment (Adult) History of falling in the last 3 months, nj1 including since admission No falls in past 3 months (0 pts) Confusion or Disorientation No (0 pts) Intoxicated or Sedated No (0 pts) Impaired Gait No (0 pts) Mobility Assist Device Used No (0 pt) Altered Elimination No (0 pt) Score/Fall Risk Level 0 - 2 = Low Risk Oriented to surroundings, Maintained a safe environment, Hourly rounding (assess needs \T\ fall precautionary measures) done. Abuse screen: Denies threats or abuse. Denies injuries from another. Nutritional screening: No deficits noted. Tuberculosis screening: No symptoms or risk factors identified. Assessment: 17:30 General: Appears in no apparent distress. comfortable, Behavior is calm, cooperative, nj1 appropriate for age. 17:30 Pain: Denies pain. Neuro: Level of Consciousness is awake, alert, obeys commands, nj1 Oriented to person, place, time, situation. Cardiovascular: Patient's skin is warm and dry. Respiratory: Airway is patent Respiratory effort is even, unlabored. Derm: Wound noted left oden. 18:30 Reassessment: Patient appears in no apparent distress at this time. Patient and/or nj1 family updated on plan of care and expected duration. Pain level reassessed. Patient is alert, oriented x 3, equal unlabored respirations, skin warm/dry/pink. 18:52 Reassessment: Awaiting on PA to sign prescription. nj1 Vital Signs: 15:45 BP 162 / 72; Pulse 69; Resp 16; Temp 98.2; Pulse Ox 96% on R/A; Weight 102.06 kg; iw Height 5 ft. 6 in. ; 18:10 BP 117 / 67; Pulse 63; Resp 18; Pulse Ox 99% ; nj1 15:45 Body Mass Index 36.32 (102.06 kg, 167.64 cm) iw ED Course: 15:37 Patient arrived in ED. rg4 15:46 Triage completed. iw 15:47 Arm band placed on. iw 15:53 Rolando Chaney PA is PHCP. cp 15:53 Rosa Ang MD is Attending Physician. cp 17:02 Pat Aguirre, KEENAN is Primary Nurse. nj1 17:05 Inserted saline lock: 20 gauge in left antecubital area, using aseptic technique. Blood jr12 collected. 17:05 BMP Sent. jr12 17:05 CBC with Diff Sent. jr12 17:30 Patient has correct armband on for positive identification. Bed in low position. Call nj1 light in reach. Adult w/ patient. 17:30 Provided Education on: call light, fall precautions. nj1 17:31 US Extremity Venous Unilateral Ltd In Process Unspecified. EDMS 17:31 US LE Artery Uni Ltd In Process Unspecified. EDMS 17:54 XRAY Tib Fib LEFT In Process Unspecified. EDMS Administered Medications: 18:40 Drug: Rocephin IV 1 grams IV at calculated rate once; Given slow IV push per pharmacy nj1 instructions Route: IV; Rate: calculated rate; Site: right antecubital; 18:40 Drug: LevOfloxacin PO 750 mg PO once Route: PO; nj1 Outcome: 18:35 Discharge ordered by MD. andrew 19:03 Patient left the ED. nj1 Signatures: Dispatcher [employer] EDFiona Michelle RN RN iw Page, Corey, PA PA cp Garcia, Rubi rg4 Pat Aguirre RN RN nj1 Elisha Corrigan jr12
--- NOTE | 2024-01-23 18:36 | EDPHYS ---
Physician Documentation [facility] Name: Farhan Boyer Jr Age: 68 yrs Sex: Male : 1955 Arrival Date: 01/23/2024 Time: 15:23 Bed 9 Private MD: ED Physician Roas Ang Historical: - Allergies: 01/22 15:46 No Known Allergies; iw - PMHx: 15:46 Diabetes - NIDDM; Hypercholesterolemia; Hypertension; Hypothyroidism; iw - PSHx: 15:46 Stented artery; Carotid sx; iw - Immunization history:: Adult Immunizations unknown. - Infectious Disease History:: Denies. - Social history:: Smoking status: unknown. Vital Signs: 15:45 BP 162 / 72; Pulse 69; Resp 16; Temp 98.2; Pulse Ox 96% on R/A; Weight 102.06 kg; iw Height 5 ft. 6 in. ; 18:10 BP 117 / 67; Pulse 63; Resp 18; Pulse Ox 99% ; nj1 15:45 Body Mass Index 36.32 (102.06 kg, 167.64 cm) iw MDM: 15:53 Patient medically screened. cp 01/22 16:39 Order name: CBC with Diff; Complete Time: 17:33 cp 01/22 17:33 Interpretation: Reviewed. cp 01/22 16:39 Order name: BMP; Complete Time: 17:33 cp 01/22 17:35 Order name: Wound Culture cp 01/22 16:39 Order name: XRAY Tib Fib LEFT; Complete Time: 18:17 cp 01/22 18:17 Interpretation: Report reviewed. cp 01/22 16:39 Order name: Extremity Venous Unilateral Ltd; Complete Time: 18:14 cp 01/22 16:39 Order name: LE Artery Uni Ltd; Complete Time: 18:14 cp 01/22 16:39 Order name: IV; Complete Time: 17:05 cp Administered Medications: 18:40 Drug: Rocephin IV 1 grams IV at calculated rate once; Given slow IV push per pharmacy nj1 instructions Route: IV; Rate: calculated rate; Site: right antecubital; 18:40 Drug: LevOfloxacin PO 750 mg PO once Route: PO; nj1 Disposition Summary: 01/23/24 18:35 Discharge Ordered Notes: Location: Home cp Problem: new cp Symptoms: have improved cp Condition: Stable cp Diagnosis - Leg Laceration/ Open wound of lower leg cp Followup: cp - With: Private Physician - When: 2 - 3 days - Reason: Wound Recheck Discharge Instructions: - Discharge Summary Sheet cp - How to Change Your Wound Dressing cp - Wound Care, Adult cp Forms: - Medication Reconciliation Form cp - Antibiotic Education cp - Prescription Opioid Use cp - Patient Portal Instructions cp - Leadership Thank You Letter cp Prescriptions: - levofloxacin 500 mg Oral tablet - take 1 tablet ORAL route once daily for 8-10 days start taking evening of cp 01-24-2024; 9 tablet; Refills: 0, Product Selection Permitted Signatures: Dispatcher [employer] EDMS Fiona Mae RN RN iw Rolando Chaney PA PA cp Pat Aguirre RN RN nj1 Corrections: (The following items were deleted from the chart) 16:40 16:40 Lower Extremity Artery Uni Ltd+US.RAD.BRZ ordered. EDMS EDMS 16:40 16:40 CBC+H.LAB.BRZ ordered. EDMS EDMS 16:40 16:40 BASIC METABOLIC PANEL+C.LAB.BRZ ordered. EDMS EDMS 17:35 17:35 Wound Culture+BA.LAB.BRZ ordered. EDMS EDMS
[2024-01-23] MEDS ORDERED: NA CHLORIDE 0.9% 50 ML ONE (18:37)
[2024-01-23] MEDS ORDERED: CEFTRIAXONE 1000 MG/VIAL ONE (18:37)
[2024-01-23] MEDS ORDERED: levoFLOXacin 750 MG TAB ONE (18:37)
[2024-01-23 20:23] VITALS: BP 117/67; TEMP 98.2; O2SAT 99
== END 2024-01-23 19:03 | disposition home or self-care (01) ==
LOC: ER 15:23
DX: S81.812A Laceration without foreign body, left lower leg, initial encounter (principal)
CPT/HCPCS: 87070; 85025; 80048; 36415; 87205; 73590; 93926; 93971; J0696

== ENCOUNTER 2024-02-01 21:00 | Emergency (ER) | payer OTHER ==
--- OUTSIDE RECORDS SUMMARY | 2024-02-01 21:03 | XMS REPORT | Continuity of Care Document ---
Author Name Unknown Address [address] [facility] [address] [place] [address] [facility] Address [address] [place] [address] Care Team Providers Care Binding Folder Machine Name Role Phone Jackson Montgomery Attending Clinician [...] s DA Active U 12-03 00:00: 00 [facility] Procedures Procedure Date / Time Performed Performing Clinicia n Source [id number] 2023-12-06 00:00:00 [facility]AAB.01 [facility] [id number] 2023-12-06 00:00:00 [facility].01 [facility] [id number] 2023-12-06 00:00:00 [facility].01 [facility] [id number] 2023-12-06 00:00:00 [facility].01 [facility] [id number] 2023-12-06 00:00:00 [facility]AA[facility].01 [facility] [id number] 2023-12-06 00:00:00 CHAAB.01 [facility] Encounters Start Date/Time End Date/Time Encounter Type Admission Type Attending Clinicians Care Facility Care Department Encounter ID Source 2020-08-15 13:00:00 Inpatient Jackson Harman [facility] [id number] [facility] 2023-12-06 05:31:00 2023-12-07 15:43:00 Inpatient Anurag Wayne [facility] [id number] [facility] 2022-04-18 15:27:00 2022-04-18 15:27:00 [facility] [id number] [facility] are [facility] Results Test Description Test Time Test Comments Results Result Co mments Source BASIC METABOLIC [id number] 03:38:00* Test Item Value Reference Range Interpretation [...] code = CA) 8.9 mg/dL 8.0-10.5 N [id number] 03:38:00* Test Item Value Reference Range Interpretation Comme nts MAGNESIUM (test code = MAG) 1.72 mg/dL 1.6-2.6 N CBC W/AUTO [id number] 03:16:00* Test Item Value Reference Range Interpretation [...] NRBC#) 0.00 x10 3/uL 0.0-0.1 N GLUCOSE [id number] 21:16:00* Test Item Value Reference Range Interpretation Comme [facility] GLUCOSE BEDSIDE (test code = GLUBED) 190 MG/DL 70-110 H Performed by cer tified fermenter operator at [facility] GLUCOSE [id number] 12:30:00* Test Item Value Reference Range Interpretation Comme [facility] GLUCOSE BEDSIDE (test code = GLUBED) 155 MG/DL 70-110 H Performed by [facility] [employer] Tech Limitedied fermenter operator at [facility] BASIC METABOLIC [id number] 12:26:00* Test Item Value Reference Range Interpretation [...] = CA) 8.4 mg/dL 8.0-10.5 N HGB [id number] 12:12:00* Test Item Value Reference Range Interpretation Comme nts HEMOGLOBIN (test code = HGB) 13.3 g/dL 12.5-16.9 N HEMATOCRIT (test code = HCT) 40.5 % 37.5-50.7 N [id number] 07:47:00* Test Item Value Reference Range Interpretation Comme nts ACT-ISTAT (test code = ACTI) 293 SEC 74-137 H Performed by cer tified fermenter operator at [facility] GLUCOSE [id number] 07:08:00* Test Item Value Reference Range Interpretation Comme [facility] GLUCOSE BEDSIDE (test code = GLUBED) 127 MG/DL 70-110 H Performed by cer tified fermenter operator at [facility] - XR CHEST 2 [id number] 12:25:00 [facility] 1955 Sex: M FAX: Anurag Roth MD [phone] [place]: St: PRE Name: JAYJAY BOYER JR [facility] : 1955 Age/S: 68/M[address] Unit #: [id number] Loc: [place] [address] Phys: Anurag Muro MD Acct: [id number] Dis Date: Status: PRE IN PHONE #: [phone] Exam Date: 12/04/2023 1140 FAX #: [phone] Reason: PREOP EXAMS: CPT CODE: [id number] XR CHEST 2 V 40392 EXAM: CHEST 2 VIEWS INDICATION: PREOP LOCATION: B2 COMPARISON: None available TECHNIQUE: PA and lateral views of the chest. FINDINGS: The heart size is normal. The lungs are clear bilaterally. The pulmonary vasculature is normal. No pneumothorax or pleural effusion is identified. The osseous structures are normal. IMPRESSION: No acute cardiopulmonary process. at 0459 Reported and signed by: Sanjana Nowak M.D. CC: Anurag Muro MD Technologist:RT Malcolm(R) Trnscrd Date/Time/By: 12/04/2023 (5907) : By: 16 [facility] Print D/T: S: 12/04/2023 (1934) PAGE 1 Signed ReportCOMPREHENSIVE METABOLIC [id number] 11:40:00* Test Item Value Reference Range Interpretation [...] IUnit/L 20-125 N COVID 19 Asymptomatic IH [id number] 11:36:00* Test Item Value Reference Range Interpretation [...] perform moderate, high or waivedcomplexity tests. PROTHROMBIN [id number] 11:35:00* Test Item Value Reference Range Interpretation [...] Infarction (to prevent recurrent infarct). THROMBOPLASTIN TIME [id number] 11:35:00* Test Item Value Reference Range Interpretation Comme nts THROMBOPLASTIN TIME PARTIAL (test code = PTT) 35.5 Seconds 25.0-39.5 N Therapeutic Rang e: 50.4 - 88.3 Seconds Effective 01/13/2019 UA RFLX MICR CULT IF [id number] 11:26:00* Test Item Value Reference Range Interpretation [...] for culture: Temperature > 100.4 FSpecimen Description: [facility] W/AUTO [id number] 11:24:00* Test Item Value Reference Range Interpretation [...] x10 3/uL 0.0-0.1 N - DUP EXTRACRANIAL [id number] 14:15:00 [facility] : 1955 Sex: MPatient Name: JAYJAY BOYER Unit No: [id number] EXAMS: CPT: [id number] [facility] EXTRACRANIAL CHARISSE [address] BILATERAL CAROTID ARTERY ULTRASOUND AND DUPLEX IMAGING [...] studies are available for comparison TECHNICAL NOTE: imaging technologist: Iris Crowe Following the Vascular Lab [...] signed by: LEON LI MD Name: JAYJAY BYOER [facility] Phys: Jackson Bernard MD [address] [facility] : 1955 Age: 65 Sex: M [place] [address] Loc: [facility] Exam Date: 08/15/2020 Status: REG CLI PH: FAX: PAGE 1 Signed Report (CONTINUED) Patient Name: JAYJAY BOYER Unit No: [id number] EXAMS: CPT: [id number] DUP EXTRACRANIAL CHARISSE 109[address] (Continued) CC: Jackson Montgomery MD Technologist: Iris Marquez Probe: Trscr Dt/Tm: 08/15/2020 (1415) by:QuianaHROrig Print D/T: S: 08/15/2020 (1418) BATCH NO: N/A Name: JAYJAY BOYER [facility] Phys: Jackson Funes MD [address] [facility] : 1955 Age: 65 Sex: M [place] [address] Loc: N.USN Exam Date: 08/15/2020 Status: REG CLI PH: FAX: PAGE 2 Signed Report Notes Date/Time Note Provider Source 2023-12-07 12:54:00 [id number] gceaGKe/JlbiJefLPCmeuegEawcL5 YD4hUUTKjIdB1ggWxZiAcseTHSH7194-05-11N16:54:00 [facility] ([facility])Discharge SummaryREPORT#:[id number] REPORT STATUS: SignedREPORT INITIALIZATION DATE:12/07/23 TIME: 1254 PATIENT: JAYJAY BOYER JR UNIT #: [id number]#: [id number] [address] [birth year] AGE: 68 SEX: M ATTEND: [...] of motion, normal inspection, painless range of motionNeuro/ELECTRONICS MAINTENANCE TECHNICIAN: alert, oriented X 3, no motor deficits, [...] (Auto) (14.0 - 32.0 %) 12.3 L [place] % (Auto) (4.8 - 9.0 %) 9.0 Eos % (Auto) (0.3 - 3.7 %) 0.0 L Baso % (Auto) (0.0 - 2.0 %) 0.2 Neut # (Auto) (2.0 - 7.6 x10 3/uL) 9.62 H Lymph # (Auto) (1.0 - 3.8 x10 3/uL) 1.51 [place] # (Auto) (0.1 - 0.8 x10 3/uL) [...] or OlderDiscussed with: patient at 0940 RPT #:[id number] OF REPORTDSDischarge drpghqq8930-49-19X44:54:00G.TZOJ39028279-7145YVOn ailable for patient ttvoSNDWZJWNIERLHU0663-44-01D40:42:10 [facility] 2023-12-07 12:20:00 [id number] ZZz6Y+uB4rWzvToNwvv8T4XbewoTD NHegtq/KyIfgIbop1KOmXMpI5Uv5228-93-69H20:20:00 [facility] ([facility])Cardiology Progress NoteREPORT#:[id number] REPORT STATUS: SignedREPORT INITIALIZATION DATE:12/07/23 TIME: 1220 PATIENT: JAYJAY BOYER JR UNIT #: [id number]#: [id number] [address] [birth year] AGE: 68 SEX: M ATTEND: [...] (Auto) (14.0 - 32.0 %) 12.3 L [place] % (Auto) (4.8 - 9.0 %) 9.0 Eos % (Auto) (0.3 - 3.7 %) 0.0 L Baso % (Auto) (0.0 - 2.0 %) 0.2 Neut # (Auto) (2.0 - 7.6 x10 3/uL) 9.62 H Lymph # (Auto) (1.0 - 3.8 x10 3/uL) 1.51 [place] # (Auto) (0.1 - 0.8 x10 3/uL) [...] STABLE FROM CARDIAC POINT at 1221 RPT #:[id number] OF REPORTPRProgress tqep2638-95-43Z18:20:00G.DCMU46432797-5922OXRxorr able for patient wgqeISGRSQFPCABQMX8241-03-71H57:21:50 [facility] 2023-12-06 20:45:00 [id number] hZ9h9PlIFtRqXUmMeesGceJ+xn1JH GFV/VwIkQzdwRcUQADAVnZeJf3/3519-59-30V06:45:00 [facility] ConsultationREPORT#:[id number] REPORT STATUS: SignedREPORT INITIALIZATION DATE:12/06/23 TIME: 2044 PATIENT: JAYJAY BOYER JR UNIT #: [id number]#: [id number] [address] [birth year] AGE: 68 SEX: M ATTEND: [...] softLower extremity: LE assessment: no cyanosis, no edemaNeuro/ELECTRONICS MAINTENANCE TECHNICIAN: alert, oriented X 3, normal speechSkin: dry, [...] postop care per CT surgery. at 0816 [facility] #:[id number] OF REPORTULIftqbseubgac6446-73-32K09:45:00G.PDOC2 [id number] for patient clneSZGKQUNZIHVLYX1791-35-52Z54:16:39 [facility] 2023-12-06 17:47:00 [id number] uHkXOuR7kSc7XSfUIRzhxsbO4bFZT KJIDUJ73wxQd7k45bUU9clt4/cy3301-85-05Q32:47:26287 9-[address] [place], [place] [address] PATIENT NAME: JAYJAY BOYER JR ADMIT DATE: 12/06/23ACCOUNT NO: [id number] ROOM NO: G.2203 AGE: 68 REPORT TYPE: OPERATIVE REPORT SEX: M ADMITTING PHYSICIAN:Anurag Muro MD ATTENDING PHYSICIAN:Anurag Muro MD OPERATION DATE: 12/06/2023 PREOPERATIVE DIAGNOSIS: Severe asymptomatic left internal carotid artery stenosis. POSTOPERATIVE DIAGNOSIS: Severe asymptomatic left internal carotid artery stenosis. OPERATION: Left carotid endarterectomy. SURGEON: Simone Muro M.D. VP CUSTOMER DEVELOPMENT: Chay Mcneal. ANESTHESIOLOGIST: Dr. Mccollum. ANESTHESIA: General [...] artery using Kay scissors. Next, using a [place] dissector, endarterectomy of the left common and [...] Dictated: 12/06/2023 17:47:32Date Transcribed: 12/06/2023 21:25:08LINDSEY/SEFERINO/Margret #: [id number] ID: [id number] by Anurag Muro MD On 12/15/2023 07:03:35 AM at 0703 PATIENT NAME: JAYJAY BOYER fpnaoc0139-64-21M09:25:00G.MFW66935468-7724SRUnms lable for patient saqeHCDUVAGPPYWKSI0183-27-02Q10:53:41 [facility] 2023-12-06 17:42:00 [id number] SP4db/C0/n6b2gsfY4zLe4jvNzLMc UVgnFIkll/pKsfB8hYxhAzovRCN6845-59-59S15:42:00 [facility] ([facility])Op/Inv Procedure Note - BriefREPORT#:[id number] REPORT STATUS: SignedREPORT INITIALIZATION DATE:12/06/23 TIME: 1741 PATIENT: JAYJAY BOYER JR UNIT #: [id number]#: [id number] [address] [birth year] AGE: 68 SEX: M ATTEND: Anurag Muro MDADM AUTHOR: Anurag Muro MDREPT SERVICE DT/TIME: 12/06/231741* ALL edits or amendments must be made on the electronic/computer document * Op/Inv Proc Note - Brief TEXT Brief Op/Inv Procedure NoteNote details:*PRE-PROCEDURE DIAGNOSIS:[] Severe asymptomatic left carotid artery stenosis *POST-PROCEDURE DIAGNOSIS:Same[] *PROCEDURE(S) PERFORMED:[] Left carotid endarterectomy *PRIMARY SURGEON:[]Bhaskar *VP CUSTOMER DEVELOPMENT(S):[]Chay Mcneal ANESTHETIC:[]GETA *ESTIMATED BLOOD LOSS in ml's:[]20 cc *SPECIMEN(S) REMOVED:[]Calcified*COMPLICATIONS:None[] DRAIN(S):None[] 7 KARINA TUBE(S):None[] IMPLANT(S):Bovine pericardialFLUIDS:[] DISPOSITION:To CVICU at 1749 RPT #:[id number] OF REPORTPNProcedure hlhj8107-65-67V55:42:00G.CGGQ00959480-7079LYCapwq able for patient trxvAVDXFZWKEZRPIF2372-24-10I21:49:31 [facility] 2023-12-06 15:18:00 [id number] 0/+6mdzzPyJGG1eHOKsbBsvNSln5D UTC7U0CBr4RnBj6u3f0I8O9Ygbs3693-65-93Z66:18:00 [facility] ([facility])Critical Care Consult NoteREPORT#:[id number] REPORT STATUS: SignedREPORT INITIALIZATION DATE:12/06/23 TIME: 151 PATIENT: JAYJAY BOYER JR UNIT #: [id number]#: [id number] ROOM/BED: 2203-1DOB: [birth year] AGE: 68 SEX: M ATTEND: Anurag Muro MDADM AUTHOR: Nazario Henriquez MDREPT SERVICE DT/TIME: 12/06/23 3323* ALL edits or amendments must be made [...] react lightNeck supple, left carotid drainChest clearHeart S1-W9Aepdxzs soft, bowel sounds presentExtremities no edemaCNS intact Diagnosis, Assessment PlanFree text DxA P:Severe left carotid stenosis s/p left CEAPostoperative painCAD Patient underwent left CEA for severe stenosis. GB drain in place, monitor output. Monitor H H. Monitor blood pressure. Pain control. Resume home medication. 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 Neurovascular check. Monitor closely in ICU. Case was discussed at bedside with the patient and nursing staff. at 1747 RPT #:[id number] OF REPORTTHVmsdochehzwb6904-81-17H84:18:00G.PDOC2 8658603-8400EDXfxtaxgxm for patient viaoWBNASPTLSKMXKI8280-85-30U77:48:02 [facility] 2023-12-06 10:03:00 [id number] l448rI71jMBsv4MRGBSSr81JdSu4+ SeDgKsWSmz5xhOgap963KDGvuZD4836-99-89O55:03:00 [facility] ([facility])History Physical - AdultREPORT#:[id number] REPORT STATUS: SignedREPORT INITIALIZATION DATE:12/06/23 TIME: 100 PATIENT: JAYJAY BOYER JR UNIT #: [id number]#: [id number] ROOM/BED: 2203-1DOB: [birth year] AGE: 68 SEX: M [...] 2.5 ML RIGHT EYE 03/05 2059 [facility] Gastrointestinal Drugs Sig/Luz Maria Start time Last [...] of motionMusculoskeletal: full range of motion, normal inspectionNeuro/ELECTRONICS MAINTENANCE TECHNICIAN: alert, oriented X 3Skin: dry, intact ResultsFindings/Data:Laboratory [...] heart rhythmCritical care consulted at 0940 RPT #:[id number] OF REPORTHPHistory and physical gilsrrfsrcm9109-04-77D18:03:00G.ESMO84474657-5801 AVAvailable for patient lshoFRHLLGZYIGSLHJ8482-07-26H98:41:29 [facility] 2023-12-04 11:13:00 [id number] HW1DjaKutiTlTnccL/LB3OInDJhZu Kv4w7X2vGXtvHZAM0aawUd8Adnl3068-66-49H03:13:17623 6-0039 [place] [address] PATIENT NAME: JAYJAY BOYER JR ADMIT DATE: ACCOUNT NO: [id number] ROOM NO: AGE: 68 REPORT TYPE: eELECTROCARDIOGRAM REPORT SEX: M ADMITTING PHYSICIAN:Anurag Muro MD ATTENDING PHYSICIAN:Anurag Muro MD Order:[id number] Reason : PREOP Test Date/Time Stamp:SatDec 04 [...] MD at 1306 PATIENT NAME: JAYJAY BOYER .[id number] AVAvailable for patient ehrdGBQHFWHCVGSXDF4458-63-29J54:06:35 [facility]
[2024-02-01] MEDS ORDERED: ASPIRIN 81 MG CHEWABLE TABLET ONE (21:20)
--- NOTE | 2024-02-01 21:32 | RAD REPORT ---
EXAM DESCRIPTION: RAD - Chest Single View - 02/01/2024 9:23 pm CLINICAL HISTORY: CHEST PAIN COMPARISON: Chest Single View dated 11/14/2023; Chest Pa And Lat (2 Views) dated 11/05/2023; Chest Sing le View dated 05/13/2023 FINDINGS: Lines: None. Lungs: No evidence of edema or pneumonia. Pleural: No significant pleural effusions or pneumothorax. Cardiac: The heart size is within normal limits. Mediastinum: Within normal limits. Bones: No acute fractures. Other: None IMPRESSION: No acute cardiopulmonary disease.
[2024-02-01 21:34] LABS: Absolute Basophils 0.1 K/uL (0-0.5); Absolute Eosinophils 0.2 K/uL (0-0.5); Absolute Lymphocytes (CBC) 1.6 K/uL (0.7-4.9); Absolute Monocytes 0.7 K/uL (0.1-1.3); Absolute Neutrophil 5.5 K/uL (1.8-8.0); Basophils % 1.4 % (0-1.3); Eosinophils % 2.7 % (0-4.4); Hematocrit 41.7 % (39.6-49.0); Hemoglobin 13.9 g/dL (13.6-17.9); MCH 30.9 pg (27.0-35.0); MCHC 33.3 g/dL (32.0-36.0); MCV 92.8 fL (80-100); MPV 10.7 fL (7.6-11.3); Monocytes % 9.1 % (3.3-12.3); Neutrophils % 66.8 % (41.7-73.7); Nucleated Red Blood Cells % 0.2 % (0-0); Platelets 197 thou/uL (152-406); RBC Red Blood Cell Count 4.49 M/uL (4.33-5.43); Red Cell Distribution Width 14.2 % (12.1-15.2)
[2024-02-01 21:43] LABS: PT Prothrombin Time 11.7 SECONDS (9.5-12.5); Protime INR 1.07
[2024-02-01 21:59] LABS: Anion Gap 8.7 mEq/L (5.0-15.0); Magnesium 1.8 mg/dL (1.6-2.4); Potassium 3.7 mEq/L (3.5-5.1); Troponin High Sensitivity 3.8 pg/mL (<58.9)
--- NOTE | 2024-02-02 02:09 | EDPHYS ---
Physician Documentation [facility] Name: Farhan Boyer Jr Age: 68 yrs Sex: Male : 1955 Arrival Date: 02/01/2024 Time: 21:00 Bed 5 Private MD: ED Physician Gilbert Pantoja HPI: 01/31 21:34 This 68 yrs old Male presents to ER via Wheelchair with complaints of Chest ms3 Pain. 21:34 68-year-old male with past medical history of diabetes, hyper lipidemia, hypertension, ms3 hypothyroidism presents to the emergency department for chest pain began 40 minutes prior to arrival after eating. Patient states the pain is substernal. Patient denies pain currently. Patient denies any alleviating or inciting factors. Patient denies shortness of breath, nausea, vomiting, diaphoresis. Historical: - Allergies: 21:08 No Known Allergies; km8 - PMHx: 21:08 Diabetes - NIDDM; Hypercholesterolemia; Hypertension; Hypothyroidism; km8 - PSHx: 21:08 Carotid sx; Stented artery; km8 - Immunization history:: Adult Immunizations unknown. - Infectious Disease History:: Denies. - Social history:: Smoking status: Patient denies any tobacco usage or history of. Patient/guardian denies using alcohol, street drugs. ROS: 21:34 Constitutional: Negative for fever, and chills. Neck: Negative for injury, pain, and ms3 swelling, 21:34 Abdomen/GI: Negative for abdominal pain, nausea, vomiting, diarrhea, and constipation, MS/Extremity: Negative for injury and deformity, Skin: Negative for injury, rash, and discoloration, 21:34 Cardiovascular: Positive for chest pain, Exam: 21:34 Constitutional: This is a well developed, well nourished patient who is awake, alert, ms3 and in no acute distress. Head/Face: Normocephalic, atraumatic. Neck: Trachea midline, no cervical lymphadenopathy. Supple, full range of motion without nuchal rigidity, or vertebral point tenderness. No Meningismus. Chest/axilla: Normal chest wall appearance and motion. Nontender with no deformity. Cardiovascular: Regular rate and rhythm with a normal S1 and S2. No gallops, murmurs, or rubs. Normal PMI, no JVD. No pulse deficits. Respiratory: Lungs have equal breath sounds bilaterally, clear to auscultation and percussion. No rales, rhonchi or wheezes noted. No increased work of breathing, no retractions or nasal flaring. Abdomen/GI: Soft, non-tender, with normal bowel sounds. No distension or tympany. No guarding or rebound. No evidence of tenderness throughout. Skin: Warm, dry with normal turgor. Normal color with no rashes, no lesions, and no evidence of cellulitis. 21:37 ECG was reviewed by the Attending Physician. ms3 Vital Signs: 21:07 BP 185 / 88; Pulse 79; Resp 20; Temp 98(O); Pulse Ox 99% on R/A; Weight 99.79 kg (R); km8 Height 5 ft. 6 in. (R); Pain 10/10; 21:24 BP 160 / 76; Pulse 71; Resp 16; Temp 98; Pulse Ox 100% on R/A; Pain 2/10; bm8 21:42 BP 160 / 76; Pulse 69; Pulse Ox 97% on R/A; tm6 22:33 BP 127 / 54; Pulse 62; Resp 16; Temp 98; Pulse Ox 100% on R/A; Pain 0/10; bm8 02/01 00:14 BP 135 / 59; Pulse 62; Resp 15; Pulse Ox 99% on R/A; Pain 0/10; tm6 01:04 BP 137 / 81; Pulse 60; Resp 16; Temp 98.2; Pulse Ox 97% on R/A; Pain 0/10; bm8 02:02 BP 145 / 90; Pulse 61; Pulse Ox 98% on R/A; Pain 0/10; tm6 01/31 21:07 Body Mass Index 35.51 (99.79 kg, 167.64 cm) km8 01/31 21:07 Pain Scale: Adult km8 21:24 Pain Scale: Adult bm8 22:33 Pain Scale: Adult bm8 05 00:14 Pain Scale: Adult tm6 01:04 Pain Scale: Adult bm8 02:02 Pain Scale: Adult tm6 Eileen Coma Score: 01/31 21:24 Eye Response: spontaneous(4). Motor Response: obeys commands(6). Verbal Response: bm8 oriented(5). Total: 15. 22:33 Eye Response: spontaneous(4). Motor Response: obeys commands(6). Verbal Response: bm8 oriented(5). Total: 15. MDM: 21:05 Patient medically screened. ms3 21:34 Differential diagnosis: abnormal EKG, acute myocardial infarction, chest wall pain. The ms3 patient was given aspirin in the Emergency Department. 22:54 HEART Score: History: Slightly Suspicious (0), ECG: Normal (0), Age: > or = 65 years ms3 (2), Risk Factors: > or = 3 Risk factors for atherosclerotic disease (2), [Hypercholesterolemia] [Hypertension] [DM] Troponin: < or = 1 x Normal Limit (0), Total Score = 4. 02/01 03:31 Data reviewed: vital signs, nurses notes, and as a result, I will discharge patient. ms3 Consideration of Admission/Observation Escalation of care including admission/observation considered. Heart score 4, patient without chest pain in the Emergency Department and troponin 3.8 to 4.8.. I considered the following discharge prescriptions or medication management in the emergency department Medications were administered in the Emergency Department. See MAR. Independent interpretation of the following test(s) in the Emergency Department EKG: See my EKG interpretation above hospital monitor: rate is 64 beats/min, Rhythm is normal sinus rhythm, with no ectopy, Interpretation: normal rate, normal rhythm. Care significantly affected by the following chronic conditions: Diabetes, Hypertension. Counseling: I had a detailed discussion with the patient and/or guardian regarding the historical points, exam findings, and any diagnostic results supporting the discharge/admit diagnosis, lab results, radiology results, the need for outpatient follow up, to return to the emergency department if symptoms worsen or persist or if there are any questions or concerns that arise at home. Special discussion: Based on the patient's history, exam, and Dx evaluation, there is no indication for emergent intervention or inpatient Tx. It is understood by the patient/guardian that if the Sx's persist or worsen they need to return immediately for re-evaluation. ED course: Discussed labs, chest x-ray, EKG with patient. Patient to follow-up with Dr. Charlton in 1 to 2 days. Patient understands and agrees with plan. All questions were answered. Return precautions discussed include chest pain, shortness of breath, nausea, vomiting, diaphoresis, upper abdominal pain, or any other concerns. Patient understands and agrees with plan. On reevaluation patient remains chest pain-free in the emergency department, alert and oriented x 4, no apparent distress, nontoxic-appearing, ambulatory in emergency department, speaking full sentences. 01/31 21:02 Order name: Basic Metabolic Panel; Complete Time: 22:25 ms3 01/31 21:02 Order name: CBC with Diff; Complete Time: 21:37 ms3 01/31 21:02 Order name: Magnesium; Complete Time: 22:25 ms3 01/31 21:02 Order name: NT PRO-BNP; Complete Time: 22:25 ms3 01/31 21:02 Order name: PT-INR; Complete Time: 22:25 ms3 01/31 21:02 Order name: Troponin HS; Complete Time: 22:25 ms3 01/31 23:27 Order name: Troponin High Sensitivity; Complete Time: 01:34 ms3 01/31 21:02 Order name: XRAY Chest (1 view); Complete Time: 21:37 ms3 01/31 21:02 Order name: EKG; Complete Time: 21:02 ms3 01/31 21:02 Order name: Cardiac monitoring; Complete Time: 21:18 ms3 01/31 21:02 Order name: EKG - Nurse/Tech; Complete Time: 21:18 ms3 01/31 21:02 Order name: IV Saline Lock; Complete Time: 21:18 ms3 01/31 21:02 Order name: Labs collected and sent; Complete Time: 21:18 ms3 01/31 21:02 Order name: O2 Per Protocol; Complete Time: 21:18 ms3 01/31 21:02 Order name: O2 Sat Monitoring; Complete Time: 21:18 ms3 EC/04 21:37 Rate is 87 beats/min. Rhythm is regular. QRS [place] is Normal. NC interval is normal. QRS ms3 interval is normal. Clinical impression: Normal ECG. Interpreted by me. Reviewed by me. Administered Medications: 21:30 Drug: Aspirin PO Chewable Tablet 324 mg PO once; 81 mg tablets x 4 Route: PO; bm8 Disposition Summary: 02/02/24 02:09 Discharge Ordered Notes: Location: Home ms3 Condition: Stable ms3 Diagnosis - Chest pain, unspecified ms3 Followup: ms3 - With: Parker Charlton MD - When: 1 - 2 days - Reason: Recheck today's complaints Discharge Instructions: - Discharge Summary Sheet ms3 - Nonspecific Chest Pain, Adult ms3 Forms: - Medication Reconciliation Form ms3 - Antibiotic Education ms3 - Prescription Opioid Use ms3 - Patient Portal Instructions ms3 - Leadership Thank You Letter ms3 Signatures: Dispatcher [employer] EDMS Gilbert Pantoja, DO ms3 Grazyna Meneses, RN RN km8 Pranav Hines RN RN bm8 Corrections: (The following items were deleted from the chart) 21:02 21:02 BASIC METABOLIC PANEL+C.LAB.BRZ ordered. EDMS EDMS 21:02 21:02 CBC+H.LAB.BRZ ordered. EDMS EDMS 21:02 21:02 MAGNESIUM+C.LAB.BRZ ordered. EDMS EDMS 21:02 21:02 PROBNP+C.LAB.BRZ ordered. EDMS EDMS 21:02 21:02 PROTIME (+INR)+COAG.LAB.BRZ ordered. EDMS EDMS 21:02 21:02 Troponin High Sensitivity+C.LAB.BRZ ordered. EDMS EDMS
--- NOTE | 2024-02-02 02:09 | ER ---
Nurse's Notes [facility] Name: Farhan Boyer Jr Age: 68 yrs Sex: Male : 1955 Arrival Date: 02/01/2024 Time: 21:00 Bed 5 Private MD: Diagnosis: Chest pain, unspecified Presentation: 01/31 21:07 Chief complaint: Patient states: sterna chest pain starting 1 hour ago after eating a km8 sandwich; denies SOB or nausea; pt has hx of DC. Coronavirus screen: Client denies travel out of the [place] in the last 14 days. Ebola Screen: No symptoms or risks identified at this time. Initial Sepsis Screen: Does the patient meet any 2 criteria? No. Patient's initial sepsis screen is negative. Does the patient have a suspected source of infection? No. Patient's initial sepsis screen is negative. Risk Assessment: Do you want to hurt yourself or someone else? Patient reports no desire to harm self or others. Onset of symptoms was February 01, 2024 at 20:00. 21:07 Method Of Arrival: Wheelchair km8 21:07 Acuity: SUE 2 km8 Triage Assessment: 21:08 General: Appears in no apparent distress. uncomfortable, Behavior is cooperative, km8 appropriate for age, anxious. Pain: Complains of pain in mid-sternal area Pain currently is 10 out of 10 on a pain scale. Pain began 1 hour ago. EENT: No signs and/or symptoms were reported regarding the EENT system. Neuro: Level of Consciousness is awake, alert, obeys commands, Oriented to person, place, time, situation. Cardiovascular: Reports chest pain, Denies shortness of breath, Patient's skin is warm and dry. Chest pain is described as diffuse, is located in substernal area began 1 hour prior to arrival. Respiratory: Airway is patent Respiratory effort is even, labored, Respiratory pattern is regular, symmetrical. GI: No signs and/or symptoms were reported involving the gastrointestinal system. Patient currently denies nausea. : No signs and/or symptoms were reported regarding the genitourinary system. Derm: No signs and/or symptoms reported regarding the dermatologic system. Musculoskeletal: No signs and/or symptoms reported regarding the musculoskeletal system. Range of motion: intact in all extremities. Historical: - Allergies: 21:08 No Known Allergies; 8 - PMHx: 21:08 Diabetes - NIDDM; Hypercholesterolemia; Hypertension; Hypothyroidism; [facility] - PSHx: 21:08 Carotid sx; Stented artery; [facility] - Immunization history:: Adult Immunizations unknown. - Infectious Disease History:: Denies. - Social history:: Smoking status: Patient denies any tobacco usage or history of. Patient/guardian denies using alcohol, street drugs. Screenin:24 [facility] ED Fall Risk Assessment (Adult) History of falling in the last 3 months, bm8 including since admission Yes- single mechanical fall (1 pt) Confusion or Disorientation No (0 pts) Intoxicated or Sedated No (0 pts) Impaired Gait Yes (1 pt) Mobility Assist Device Used No (0 pt) Altered Elimination No (0 pt) Score/Fall Risk Level 0 - 2 = Low Risk Oriented to surroundings, Maintained a safe environment, Educated pt \T\ family on fall prevention, incl call for assistance when getting out of bed. Abuse screen: Denies threats or abuse. Denies injuries from another. Nutritional screening: No deficits noted. Tuberculosis screening: No symptoms or risk factors identified. Assessment: 21:24 Reassessment: Patient appears in no apparent distress at this time. Patient and/or bm8 family updated on plan of care and expected duration. Pain level reassessed. Patient is alert, oriented x 3, equal unlabored respirations, skin warm/dry/pink. General: Appears in no apparent distress. comfortable, Behavior is calm, cooperative, appropriate for age. Pain: Complains of pain in chest and mid-sternal area Pain does not radiate. Pain currently is 2 out of 10 on a pain scale. Quality of pain is described as sharp, Pain began 1 hour ago. Is intermittent, lasting a few seconds. Neuro: No deficits noted. Level of Consciousness is awake, alert, obeys commands. Cardiovascular: Reports chest pain, Heart tones S1 S2 present Capillary refill < 3 seconds Patient's skin is warm and dry. Rhythm is sinus rhythm. Respiratory: Airway is patent Respiratory effort is even, unlabored, Respiratory pattern is regular, symmetrical, Breath sounds are clear bilaterally. GI: No deficits noted. No signs and/or symptoms were reported involving the gastrointestinal system. : No deficits noted. No signs and/or symptoms were reported regarding the genitourinary system. EENT: No deficits noted. No signs and/or symptoms were reported regarding the EENT system. Derm: No deficits noted. No signs and/or symptoms reported regarding the dermatologic system. Derm: Reports pt has wound on lower left calf, has previously been seen for it. not related to tdays visit. 21:43 Reassessment: Patient appears in no apparent distress at this time. No changes from tm6 previously documented assessment. 22:33 Reassessment: Patient appears in no apparent distress at this time. Patient and/or bm8 family updated on plan of care and expected duration. Pain level reassessed. Patient is alert, oriented x 3, equal unlabored respirations, skin warm/dry/pink. pt denies any pain at this time. states that he feels much better. Patient denies pain at this time. Patient states feeling better. Patient states symptoms have improved. 02/01 00:14 Reassessment: Patient appears in no apparent distress at this time. No changes from tm6 previously documented assessment. 01:04 Reassessment: Patient appears in no apparent distress at this time. Patient and/or bm8 family updated on plan of care and expected duration. Pain level reassessed. Patient is alert, oriented x 3, equal unlabored respirations, skin warm/dry/pink. pt is resting with eyes closed breathing is even unlabored at this time. Currently waiting for blood results on repeat troponin. Patient denies pain at this time. Patient states feeling better. Patient states symptoms have improved. 02:03 Reassessment: No changes from previously documented assessment. tm6 Vital Signs: 01/31 21:07 BP 185 / 88; Pulse 79; Resp 20; Temp 98(O); Pulse Ox 99% on R/A; Weight 99.79 kg (R); km8 Height 5 ft. 6 in. (R); Pain 10/10; 21:24 BP 160 / 76; Pulse 71; Resp 16; Temp 98; Pulse Ox 100% on R/A; Pain 2/10; bm8 21:42 BP 160 / 76; Pulse 69; Pulse Ox 97% on R/A; tm6 22:33 BP 127 / 54; Pulse 62; Resp 16; Temp 98; Pulse Ox 100% on R/A; Pain 0/10; bm8 02/01 00:14 BP 135 / 59; Pulse 62; Resp 15; Pulse Ox 99% on R/A; Pain 0/10; tm6 01:04 BP 137 / 81; Pulse 60; Resp 16; Temp 98.2; Pulse Ox 97% on R/A; Pain 0/10; bm8 02:02 BP 145 / 90; Pulse 61; Pulse Ox 98% on R/A; Pain 0/10; tm6 01/31 21:07 Body Mass Index 35.51 (99.79 kg, 167.64 cm) km8 01/31 21:07 Pain Scale: Adult km8 21:24 Pain Scale: Adult bm8 22:33 Pain Scale: Adult bm8 02/01 00:14 Pain Scale: Adult tm6 01:04 Pain Scale: Adult bm8 02:02 Pain Scale: Adult tm6 Eileen Coma Score: 01/31 21:24 Eye Response: spontaneous(4). Motor Response: obeys commands(6). Verbal Response: bm8 oriented(5). Total: 15. 22:33 Eye Response: spontaneous(4). Motor Response: obeys commands(6). Verbal Response: bm8 oriented(5). Total: 15. ED Course: 21:01 Patient arrived in ED. [email or web address] 21:01 Gilbert Pantoja DO is Attending Physician. ms3 21:08 Triage completed. km8 21:08 Arm band placed on right wrist. km8 21:10 Client placed on continuous cardiac and pulse oximetry monitoring. NIBP monitoring km8 applied. cold reduction roller on. Pulse ox on. NIBP on. 21:13 EKG done, by industrial technology teacher. reviewed by Gilbert Pantoja DO. oe 21:17 Inserted saline lock: 20 gauge in right forearm, using aseptic technique. Blood oe collected. 21:18 Pranav Hines, RN is Primary Nurse. bm8 21:24 Patient has correct armband on for positive identification. Placed in gown. Bed in low bm8 position. Call light in reach. Side rails up X2. Adult w/ patient. Door closed. Noise minimized. Visitors limited. Verbal reassurance given. Head of bed. 21:24 No provider procedures requiring assistance completed. bm8 21:25 XRAY Chest (1 view) In Process Unspecified. EDMS 02/01 00:37 repeat trop sent to lab. bm8 02:09 Parker Charlton MD is Referral Physician. ms3 02:16 Provided Education on: post er care and need for follow up. bm8 02:16 IV discontinued, intact, bleeding controlled, No redness/swelling at site. Pressure bm8 dressing applied. Administered Medications: 01/31 21:30 Drug: Aspirin PO Chewable Tablet 324 mg PO once; 81 mg tablets x 4 Route: PO; bm8 Medication: 21:24 VIS not applicable for this client. bm8 Outcome: 02/01 02:09 Discharge ordered by . ms3 02:16 Discharged to home ambulatory, bm8 02:16 Condition: stable 02:16 Discharge instructions given to patient, family, Instructed on discharge instructions, follow up and referral plans. medication usage, safety practices, Demonstrated understanding of instructions, follow-up care, medications, 02:17 Patient left the ED. bm8 Signatures: Dispatcher [employer] EDMS Willy Egan Marcus, DO DO ms3 Liset Esparza [email or web address] Grazyna Meneses, RN RN km8 Trang Franco, RN RN 6 Pranav Hines, RN RN bm8 Corrections: (The following items were deleted from the chart) 01/31 21:16 21:13 EKG done, by industrial technology teacher. vargas kaye
[2024-02-02 02:45] VITALS: BP 145/90; TEMP 98.2; O2SAT 98
--- NOTE | 2024-02-03 14:42 | EKG ---
Test Date: 2024-02-01 Test Time: 21:08:30 Bag Bailer: LORRI MEASUREMENT RESULTS: Intervals: Rate: 87 NH: 130 QRSD: 88 QT: 380 QTc: 457 [place]: P: 39 NH: 130 QRS: 45 T: 18 INTERPRETIVE STATEMENTS: Normal sinus rhythm Normal ECG Compared to ECG 11/05/2023 16:01:32 Left ventricular hypertrophy no longer present T-wave abnormality no longer present Possible ischemia no longer present Electronically Signed On 02-03-24 14:38:20 CDT by Parker Charlton
== END 2024-02-02 02:17 | disposition home or self-care (01) ==
LOC: ER 21:00
DX: R07.9 Chest pain, unspecified (principal); I10 Essential (primary) hypertension; I25.2 Old myocardial infarction
CPT/HCPCS: 36415; 71045; 80048; 83735; 83880; 84484; 85025; 85610; 93005

== ENCOUNTER 2024-02-05 11:53 | Inpatient (IN) | payer OTHER ==
--- OUTSIDE RECORDS SUMMARY | 2024-02-05 11:56 | XMS REPORT | Continuity of Care Document ---
Author Name Unknown Address [address] [facility] [place] [address] [facility] Address [address] [facility] [place] [address] Care Team Providers Care Legal Arbitrator Name Role Phone Jackson Montgomery Attending Clinician [...] s DA Active U 12-03 00:00: 00 [facility] Procedures Procedure Date / Time Performed Performing Clinicia n Source [id number] 2023-12-06 00:00:00 [facility]AAB.01 [facility] [id number] 2023-12-06 00:00:00 [facility]01 [facility] 5V703V3 2023-12-06 00:00:00 [facility].01 [facility] 74XV8ME 2023-12-06 00:00:00 [facility]01 [facility] 35PH6MA 2023-12-06 00:00:00 [facility]01 [facility] 83CF5TA 2023-12-06 00:00:00 CHAAB.01 [facility] Encounters Start Date/Time End Date/Time Encounter Type Admission Type Attending Clinicians Care Facility Care Department Encounter ID Source 2020-08-15 13:00:00 Inpatient Jackson Harman [facility] [id number] [facility] 2023-12-06 05:31:00 2023-12-07 15:43:00 Inpatient Anurag Wayne [facility] INTE [id number] [facility] 2022-04-18 15:27:00 2022-04-18 15:27:00 [facility] [id number] [facility] Results Test Description Test Time Test Comments Results Result Co mments Source BASIC METABOLIC [id number] 03:38:00* Test Item Value Reference Range Interpretation [...] code = CA) 8.9 mg/dL 8.0-10.5 N NIGDGGUJF9440-96-02 03:38:00* Test Item Value Reference Range Interpretation Comme nts MAGNESIUM (test code = MAG) 1.72 mg/dL 1.6-2.6 N CBC W/AUTO [id number] 03:16:00* Test Item Value Reference Range Interpretation [...] NRBC#) 0.00 x10 3/uL 0.0-0.1 N GLUCOSE GQSUFDQ8663-83-13 21:16:00* Test Item Value Reference Range Interpretation Comme [facility] GLUCOSE BEDSIDE (test code = GLUBED) 190 MG/DL 70-110 H Performed by cer tified dado operator at [facility] GLUCOSE FUFRGXO5669-26-54 12:30:00* Test Item Value Reference Range Interpretation Comme [facility] GLUCOSE BEDSIDE (test code = GLUBED) 155 MG/DL 70-110 H Performed by cer tified dado operator at [facility] BASIC METABOLIC [id number] 12:26:00* Test Item Value Reference Range Interpretation [...] = CA) 8.4 mg/dL 8.0-10.5 N HGB [id number] 12:12:00* Test Item Value Reference Range Interpretation Comme nts HEMOGLOBIN (test code = HGB) 13.3 g/dL 12.5-16.9 N HEMATOCRIT (test code = HCT) 40.5 % 37.5-50.7 N WCS-GEDIF2589-75-08 07:47:00* Test Item Value Reference Range Interpretation Comme nts ACT-ISTAT (test code = ACTI) 293 SEC 74-137 H Performed by cer tified dado operator at [facility] GLUCOSE SVCOBFG3168-54-76 07:08:00* Test Item Value Reference Range Interpretation Comme [facility] GLUCOSE BEDSIDE (test code = GLUBED) 127 MG/DL 70-110 H Performed by [facility] tified dado operator at [facility] - XR CHEST 2 [id number] 12:25:00 [facility] : 1955 Sex: M FAX: Anurag Roth MD [phone] [place]: [address] St: PRE Name: JAYJAY BOYER JR [facility] : 1955 Age/S: 68/M[address] Unit #: [id number] Loc: [place] [address] Phys: Anurag Muro MD Acct: [id number] Dis Date: Status: PRE IN PHONE #: [phone] Exam Date: 12/04/2023 1140 FAX #: [phone] Reason: PREOP EXAMS: CPT CODE: [id number] XR CHEST 2 V 68496 EXAM: CHEST 2 VIEWS INDICATION: PREOP LOCATION: B2 COMPARISON: None available TECHNIQUE: PA and lateral views of the chest. FINDINGS: The heart size is normal. The lungs are clear bilaterally. The pulmonary vasculature is normal. No pneumothorax or pleural effusion is identified. The osseous structures are normal. IMPRESSION: No acute cardiopulmonary process. at 8537 Reported and signed by: Sanjana Nowak M.D. CC: Anurag Muro MD Technologist: RT Malcolm(R) Trnscrd Date/Time/By: 12/04/2023 (7229) : By: 16 [facility] Print D/T: S: 12/04/2023 (5702) PAGE 1 Signed ReportCOMPREHENSIVE METABOLIC [id number] 11:40:00* Test Item Value Reference Range Interpretation [...] IUnit/L 20-125 N COVID 19 Asymptomatic IH [id number] 11:36:00* Test Item Value Reference Range Interpretation [...] perform moderate, high or waivedcomplexity tests. PROTHROMBIN [id number] 11:35:00* Test Item Value Reference Range Interpretation [...] Infarction (to prevent recurrent infarct). THROMBOPLASTIN TIME [id number] 11:35:00* Test Item Value Reference Range Interpretation Comme nts THROMBOPLASTIN TIME PARTIAL (test code = PTT) 35.5 Seconds 25.0-39.5 N Therapeutic Rang e: 50.4 - 88.3 Seconds Effective 01/13/2019 UA RFLX MICR CULT IF [id number] 11:26:00* Test Item Value Reference Range Interpretation [...] for culture: Temperature > 100.4 FSpecimen Description: [facility] W/AUTO [id number] 11:24:00* Test Item Value Reference Range Interpretation [...] x10 3/uL 0.0-0.1 N - DUP EXTRACRANIAL [id number] 14:15:00 [facility] 1955 Sex: MPatient Name: JAYJAY BOYER Unit No: [id number] EXAMS: CPT: [id number] DUP EXTRACRANIAL CHARISSE 87431 BILATERAL CAROTID ARTERY ULTRASOUND AND DUPLEX IMAGING REPORT CONCLUSIONS: 1. Normal carotid artery ultrasound and spectrum analysis bilaterally. 2. There is no evidence of any significant areas of stenosis,and the spectrum analysis reveals no evidence of flow turbulence. 3. The vertebral artery flow is anormal antegrade pattern bilaterally. HISTORY AND INDICATIONS FOR THE STUDY: This study is performed for the evaluation of the presence and extent of carotid atherosclerotic disease. COMPARISON STUDY: No studies are available for comparison TECHNICAL NOTE: architectural technologist: Iris Johns RVT Following the Vascular Lab Protocol, real time ultrasound and color duplex imaging was performed to evaluate the Right and Left Carotid arteries. FINDINGS BY ULTRASOUND DUPLEX IMAGING AND SPECTRAL ANALYSIS: RIGHT CAROTID: 1. There are no measurable areas of stenosis in the right common carotidartery, right carotid bulb, or in the right [...] by: LEON LI MD Name: JAYJAY BOYER [facility] Phys: Jackson Bernard MD [address] [facility] [address] : 1955 Age: 65 Sex: M [place] [address] Loc: N[facility] Exam Date: 08/15/2020 Status: REG CLI PH: FAX: PAGE 1 Signed Report (CONTINUED) Patient Name: JAYJAY BOYER Unit No: [id number] EXAMS: CPT: [id number] DUP EXTRACRANIAL CHARISSE 11223 (Continued) CC: Jackson Montgomery MD Technologist: Iris Marquez Probe: Trscr Dt/Tm: 08/15/2020 (1415) by: Orig Print D/T: S: 08/15/2020 (1418) BATCH NO: N/A Name: JAYJAY BOYER [facility] Phys: Jackson Bernard MD [address] [facility] : 1955 Age: 65 Sex: M [place] [address] Loc: N.USN Exam Date: 08/15/2020 Status: REG CLI PH: FAX: PAGE 2 Signed Report Notes Date/Time Note Provider Source 2023-12-07 12:54:00 [id number] gceaGKe/JlbiJefLPCmeuegEawcL5 NN3gESGAcXaN1jyHaJyVihiIHTD6847-41-99Y59:54:00 [facility] ([facility])Discharge SummaryREPORT#:[id number] REPORT STATUS: SignedREPORT INITIALIZATION DATE:12/07/23 TIME: 1254 PATIENT: JAYJAY BOYER JR UNIT #: [id number]#: [id number] [address] AGE: 68 SEX: M ATTEND: [...] of motion, normal inspection, painless range of motionNeuro/MANAGER POOL: alert, oriented X 3, no motor deficits, [...] (Auto) (14.0 - 32.0 %) 12.3 L Greene % (Auto) (4.8 - 9.0 %) 9.0 Eos % (Auto) (0.3 - 3.7 %) 0.0 L Baso % (Auto) (0.0 - 2.0 %) 0.2 Neut # (Auto) (2.0 - 7.6 x10 3/uL) 9.62 H Lymph # (Auto) (1.0 - 3.8 x10 3/uL) 1.51 Greene # (Auto) (0.1 - 0.8 x10 3/uL) [...] or OlderDiscussed with: patient at 0940 RPT #:[id number] OF REPORTDSDischarge fvdahio0902-75-90B96:54:00G.LDWP26387237-0069SFAt ailable for patient zjvdSFADUDOLMSXTVU4868-87-92F58:42:10 [facility] 2023-12-07 12:20:00 [id number] ZZz6Y+oX4fCgtEzZots1I5FgkwtKO NHegtq/OpCchKmtk8LVqNAyF3Xa8933-13-55Y13:20:00 [facility] ([facility])Cardiology Progress NoteREPORT#:[id number] REPORT STATUS: SignedREPORT INITIALIZATION DATE:12/07/23 TIME: 1220 PATIENT: JAYJAY BOYER JR UNIT #: [id number]#: [id number] [address] [birth year] AGE: 68 SEX: M ATTEND: [...] normal capillary refill, no edema ResultsFindings/Data:Laboratory Tests 12/06 2102 Chemistry Sodium (134 - 147 mEq/L) [...] - 2.6 mg/dL) 1.72 Laboratory Tests 12/06 236 Hematology WBC (4.5 - 11.0 [...] (Auto) (14.0 - 32.0 %) 12.3 L Greene % (Auto) (4.8 - 9.0 %) 9.0 Eos % (Auto) (0.3 - 3.7 %) 0.0 L Baso % (Auto) (0.0 - 2.0 %) 0.2 Neut # (Auto) (2.0 - 7.6 x10 3/uL) 9.62 H Lymph # (Auto) (1.0 - 3.8 x10 3/uL) 1.51 Greene # (Auto) (0.1 - 0.8 x10 3/uL) [...] STABLE FROM CARDIAC POINT at 1221 RPT #:[id number] OF REPORTPRProgress ucoa3361-57-42O52:20:00G.IIOU26877692-4339CADcbjn able for patient qhvmFEOAIDUDUHOEEK6126-85-34I28:21:50 [facility] 2023-12-06 20:45:00 [id number] vB7r9LaMNbChNYjQzooOdmU+xn1JH GFV/VwIkQzdwRcUQADAVnZeJf3/8787-54-85W98:45:00 [facility] ConsultationREPORT#:[id number] REPORT STATUS: SignedREPORT INITIALIZATION DATE:12/06/23 TIME: 2044 PATIENT: JAYJAY BOYER JR UNIT #: [id number]#: [id number] [address] [birth year] AGE: 68 SEX: M ATTEND: [...] 12/05 1815 77 16 125/51 75 95 /08 1800 72 17 116/46 65 95 /08 1745 72 7 112/45 65 93 /08 1730 87 33 102/45 66 96 / 1715 87 16 99/46 64 95 /08 1700 95 20 112/53 74 94 /08 1645 83 17 109/46 65 93 03/08 [...] softLower extremity: LE assessment: no cyanosis, no edemaNeuro/MANAGER POOL: alert, oriented X 3, normal speechSkin: dry, [...] postop care per CT surgery. at 0816 RPT #:[id number] OF REPORTOEJgfmqazqnfni9423-41-59J16:45:00G.PDOC2 8499476-9321JHTlprilije for patient bghgZEMXXOXPVTVDSW2532-82-36S98:16:39 [facility] 2023-12-06 17:47:00 [id number] fKuPKrN2fBp0MUdLFRcmpwgO5xCSY BYETCY14ziUg4x12vVX3skm7/np9768-44-17E40:47:98336 9-[address] [place], [place] [address] PATIENT NAME: JAYJAY BOYER JR ADMIT DATE: 12/06/23ACCOUNT NO: [id number] ROOM NO: G.2203 AGE: 68 REPORT TYPE: OPERATIVE REPORT SEX: M ADMITTING PHYSICIAN:Anurag Muro MD ATTENDING PHYSICIAN:Anurag Muro MD OPERATION DATE: 12/06/2023 PREOPERATIVE DIAGNOSIS: Severe asymptomatic left internal carotid artery stenosis. POSTOPERATIVE DIAGNOSIS: Severe asymptomatic left internal carotid artery stenosis. OPERATION: Left carotid endarterectomy. SURGEON: Simone Muro M.D. DIRECTOR OF REVENUE: Chay Mcneal. ANESTHESIOLOGIST: Dr. Mccollum. ANESTHESIA: General [...] artery using Kay scissors. Next, using a Tama dissector, endarterectomy of the left common and [...] Dictated: 12/06/2023 17:47:32Date Transcribed: 12/06/2023 21:25:08LINDSEY/SEFERINO/Margret #: [id number] ID: [id number] by Anurag Muro MD On 12/15/2023 07:03:35 AM at 0703 PATIENT NAME: JAYJAY BOYER wxerul5730-73-08H16:25:00G.TQU76728257-2736AGMbsv lable for patient ymbvFEGCVJVBPRKJPC3371-93-79A04:53:41 [facility] 2023-12-06 17:42:00 [id number] SP4db/C0/b3k9bokX2rKu5ziAzDGm UVgnFIkll/lXqgQ3kAiiOudnAJU4887-91-45C49:42:00 [facility] ([facility])Op/Inv Procedure Note - BriefREPORT#:[id number] REPORT STATUS: SignedREPORT INITIALIZATION DATE:12/06/23 TIME: 1741 PATIENT: JAYJAY BOYER JR UNIT #: [id number]#: [id number] [address] AGE: 68 SEX: M ATTEND: Anurag Muro MDADM AUTHOR: Anurag Muro MDREPT SERVICE DT/TIME: 12/06/231741* ALL edits or amendments must be made on the electronic/computer document * Op/Inv Proc Note - Brief TEXT Brief Op/Inv Procedure NoteNote details:*PRE-PROCEDURE DIAGNOSIS:[] Severe asymptomatic left carotid artery stenosis *POST-PROCEDURE DIAGNOSIS:Same[] *PROCEDURE(S) PERFORMED:[] Left carotid endarterectomy *PRIMARY SURGEON:[]Bhaskar *DIRECTOR OF REVENUE(S):[]Chay Mcneal ANESTHETIC:[]GETA *ESTIMATED BLOOD LOSS in ml's:[]20 cc *SPECIMEN(S) REMOVED:[]Calcified*COMPLICATIONS:None[] DRAIN(S):None[] 7 KARINA TUBE(S):None[] IMPLANT(S):Bovine pericardialFLUIDS:[] DISPOSITION:To CVICU at 1749 RPT #:[id number] OF REPORTPNProcedure insr2263-97-42W84:42:00G.SAOT57589436-0393ARGvrvp able for patient pwbpUMNQXZHMJVDTEN8220-20-36M01:49:31 [facility] 2023-12-06 15:18:00 [id number] 0/+1cevsPdMIB8lBPTxcAbiUMjf4Y IBW3A0GUb4IxEo1z8p9R0Z9Yrcm6574-49-62R75:18:00 [facility] ([facility])Critical Care Consult NoteREPORT#:[id number] REPORT STATUS: SignedREPORT INITIALIZATION DATE:12/06/23 TIME: 1517 PATIENT: JAYJAY BOYER JR UNIT #: [id number]#: [id number] ROOM/BED: 2203-1DOB: [birth year] AGE: 68 SEX: M ATTEND: Anurag Muro MDADM AUTHOR: Nazario Henriquez MDREPT SERVICE DT/TIME: 12/06/23 6250* ALL edits or amendments must be made [...] react lightNeck supple, left carotid drainChest clearHeart S1-D2Ttpdqwl soft, bowel sounds presentExtremities no edemaCNS intact Diagnosis, Assessment PlanFree text DxA P:Severe left carotid stenosis s/p left CEAPostoperative painCAD Patient underwent left CEA for severe stenosis. GB drain in place, monitor output. Monitor H H. Monitor blood pressure. Pain control. Resume home medication. Continuous hospital monitor. Neurovascular check. Monitor closely in ICU. Case was discussed at bedside with the patient and nursing staff. at 1747 [facility] #:[id number] OF REPORTZESvrjfazcexvn0518-01-38O81:18:00G.PDOC2 0128293-8292MKGixytkwzq for patient jhuoRRPFDFHEFHXXSF0194-82-67U18:48:02 [facility] 2023-12-06 10:03:00 [id number] e638pU20bSSpg9RXRRJAo37TuEd5+ CrRiJqIAbo4ruStbp301OOZzhYO4494-96-18X92:03:00 [facility] ([facility])History Physical - AdultREPORT#:[id number] REPORT STATUS: SignedREPORT INITIALIZATION DATE:12/06/23 TIME: 100 PATIENT: JAYJAY BOYER JR UNIT #: [id number]#: [id number] ROOM/BED: 2203-1DOB: [birth year] AGE: 68 SEX: M [...] 50,000 UNIT PO Q7D 12/04/23 (VITAMIN D3) 111 (VITAMIN D3)Strength: 1,250 MCG (50,000UNIT) CAP CLOPIDOGREL [...] 03/06 0859 Heparin Sodium 0 .STK-MED ONE 12/06 639 DC (HEPARIN SODIUM) .ROUTE Thrombin 0 .STK-MED ONE 12/06 639 DC (RECOTHROM) TOPICAL Cardiovascular Drugs Sig/Luz Maria Start time Last Medication Dose Route Stop Time Status Admin Losartan Potassium 50 MG DAILY 12/06 899 UNV (COZAAR) PO 06/07 0859 Atorvastatin Calcium 40 MG BEDTIME 12/05 [...] 0500 AC (LIDOCAINE HCL/PF) LOCAL 12/05 2359 Lidocaine HCl 2 ML PREOP ONCALL 12/05 [...] ONCE 12/05 0900 CKD Acetaminophen PO 12/05 185 (NORCO 5/325) Hydromorphone HCl 1 MG PACU Q10MIN PRN PRN 12/05 09 AC (DILAUDID) IV 12/05 185 Hydromorphone HCl 0.5 MG PACU Q5MIN PRN PRN 12/05 899 AC 12/05 (DILAUDID) IV 12/05 1854 0956 Meperidine HCl 12.5 MG PACU ONCE PRN 12/05 899 AC (MEPERIDINE HCL/PF) IV 12/05 185 Morphine Sulfate 2 MG PACU Q10MIN PRN PRN 12/05 899 AC (morphine SULFATE) IV 12/05 1854 Tramadol HCl 50 MG PACU ONCE 12/05 899 CKD (ULTRAM) PO 12/05 1854 Fentanyl Citrate 0 .STK-MED ONE 12/05 0859 [...] 2.5 ML RIGHT EYE 03/05 2059 OPHTH SOLN) Gastrointestinal Drugs Sig/Luz Maria Start time Last [...] Status Admin Glimepiride 4 MG DAILY 12/06 0900 UNV (AmaryL) PO 03/06 0859 Levothyroxine Sodium 25 MCG DAILY 12/06 0900 UNV (Synthroid) PO 03/06 0859 Insulin Human [...] 86 18 147/68 96 Nasal 4 cannula / 0840 88 16 150/65 100 03/08 0836 [...] of motionMusculoskeletal: full range of motion, normal inspectionNeuro/MANAGER POOL: alert, oriented X 3Skin: dry, intact ResultsFindings/Data:Laboratory [...] heart rhythmCritical care consulted at 0940 RPT #:[id number] OF REPORTHPHistory and physical uuxysdqquey0168-51-86H32:03:00G.DSET55014607-5135 AVAvailable for patient flasSHWSWCSNHIMZLJ1489-74-03I22:41:29 [facility] 2023-12-04 11:13:00 [id number] DX3XouHugyOmZtshH/LG2YLoUDrDa Ep1y5N8qSYoyARGX6sxhLx4Mwul5482-19-69T01:13:21230 6-0039 [place] [address] PATIENT NAME: JAYJAY BOYER JR ADMIT DATE: ACCOUNT NO: [id number] ROOM NO: AGE: 68 REPORT TYPE: eELECTROCARDIOGRAM REPORT SEX: M ADMITTING PHYSICIAN:Anurag Muro MD ATTENDING PHYSICIAN:Anurag Muro MD Order:[id number] Reason : PREOP Test Date/Time Stamp:SatDec 04 [...] MD at 1306 PATIENT NAME: JAYJAY BOYER .[id number] AVAvailable for patient dnekJEVYDZPTFQSFUP0807-73-58D93:06:35 [facility]
[2024-02-05] MEDS ORDERED: NA CHLORIDE 0.9% 100 ML ONE (13:06)
[2024-02-05] MEDS ORDERED: NA CHLORIDE 0.9% 250 ML ONE (13:06)
[2024-02-05] MEDS ORDERED: CEFEPIME 2 GM VIAL ONE (13:06)
[2024-02-05] MEDS ORDERED: VANCOMYCIN 1 GM/VIAL ONE (13:06)
[2024-02-05 13:11] LABS: Absolute Basophils 0.1 K/uL (0-0.5); Absolute Eosinophils 0.2 K/uL (0-0.5); Absolute Lymphocytes (CBC) 1.2 K/uL (0.7-4.9); Absolute Monocytes 0.7 K/uL (0.1-1.3); Absolute Neutrophil 7.7 K/uL (1.8-8.0); Basophils % 0.7 % (0-1.3); Eosinophils % 1.8 % (0-4.4); Hematocrit 41.2 % (39.6-49.0); Hemoglobin 13.5 g/dL (13.6-17.9); Lymphocytes % 12.2 % (15.3-44.8); MCH 30.1 pg (27.0-35.0); MCHC 32.7 g/dL (32.0-36.0); MPV 10.7 fL (7.6-11.3); Neutrophils % 78.3 % (41.7-73.7); Platelets 203 thou/uL (152-406); RBC Red Blood Cell Count 4.48 M/uL (4.33-5.43)
[2024-02-05 13:14] LABS: PT Prothrombin Time 11.8 SECONDS (9.5-12.5); PTT, Activated Partial Thromb 31.6 SECONDS (24.3-36.9); Protime INR 1.07
[2024-02-05 13:28] LABS: Albumin 3.5 g/dL (3.4-5.0); Anion Gap 6.7 mEq/L (5.0-15.0); Bilirubin Total 0.4 mg/dL (0.2-1.0); Globulin 3.5 g/dL (2.3-3.5); Potassium 3.7 mEq/L (3.5-5.1)
--- NOTE | 2024-02-05 13:38 | ER ---
Nurse's Notes [facility] Name: Farhan Boyer Jr Age: 68 yrs Sex: Male : 1955 Arrival Date: 02/05/2024 Time: 11:53 Bed 14 Private MD: Diagnosis: Cellulitis left lower extremity, failed outpatient therapy Presentation: 02/04 12:01 Chief complaint: Patient states: wound on left oden area X 2-3 weeks, his heart doctor iw told him it looks infected , has bene on antibiotics for it and finished last dose yesterday amox-clav and levofloxacin. Coronavirus screen: At this time, the client does not indicate any symptoms associated with coronavirus-19. Ebola Screen: Patient negative for fever greater than or equal to 101.5 degrees Fahrenheit, and additional compatible Ebola Virus Disease symptoms Patient denies exposure to infectious person. Patient denies travel to an Ebola-affected area in the 21 days before illness onset. No symptoms or risks identified at this time. Initial Sepsis Screen: Does the patient meet any 2 criteria? No. Patient's initial sepsis screen is negative. Does the patient have a suspected source of infection? No. Patient's initial sepsis screen is negative. Risk Assessment: Do you want to hurt yourself or someone else? Patient reports no desire to harm self or others. Onset of symptoms was January 18, 2024. 12:01 Method Of Arrival: Ambulatory iw 12:01 Acuity: SUE 3 iw Historical: - Allergies: 12:03 No Known Allergies; iw - PMHx: 12:03 Diabetes - NIDDM; Hypercholesterolemia; Hypertension; Hypothyroidism; iw - PSHx: 12:03 Stented artery; Carotid sx; iw - Immunization history:: Adult Immunizations up to date, Client reports receiving the 2nd dose of the Covid vaccine. - Infectious Disease History:: Denies. - Social history:: Smoking status: Patient denies any tobacco usage or history of. - Family history:: not pertinent. Screenin:47 [facility] ED Fall Risk Assessment (Adult) History of falling in the last 3 months, tl4 including since admission No falls in past 3 months (0 pts) Confusion or Disorientation No (0 pts) Intoxicated or Sedated No (0 pts) Impaired Gait No (0 pts) Mobility Assist Device Used Yes (1 pt) Altered Elimination No (0 pt) Score/Fall Risk Level 0 - 2 = Low Risk Oriented to surroundings, Maintained a safe environment, Educated pt \T\ family on fall prevention, incl call for assistance when getting out of bed, Assessed \T\ reinforced patient's understanding of fall precautions, Provided non-skid footwear, Hourly rounding (assess needs \T\ fall precautionary measures) done, Used ambulatory aids as needed (educated on \T\ assisted with), Used gait belt as appropriate. Abuse screen: Denies threats or abuse. Denies injuries from another. Nutritional screening: No deficits noted. Tuberculosis screening: No symptoms or risk factors identified. Assessment: 12:44 General: Appears in no apparent distress. Behavior is calm, cooperative. Pain: tl4 Complains of pain in left leg. Neuro: Level of Consciousness is awake, alert, obeys commands, Oriented to person, place, time, situation, Ethnic Origins Teacher are equal bilaterally Moves all extremities. Full function Gait is steady, Speech is normal, Facial symmetry appears normal. Cardiovascular: Capillary refill < 3 seconds Patient's skin is warm and dry. Respiratory: Airway is patent Respiratory effort is even, unlabored, Respiratory pattern is regular, symmetrical, Breath sounds are clear bilaterally. GI: No signs and/or symptoms were reported involving the gastrointestinal system. : No signs and/or symptoms were reported regarding the genitourinary system. EENT: No signs and/or symptoms were reported regarding the EENT system. Derm: Wound noted left leg. Musculoskeletal: No signs and/or symptoms reported regarding the musculoskeletal system. 13:51 Reassessment: Patient and/or family updated on plan of care and expected duration. Pain tl4 level reassessed. Patient is alert, oriented x 3, equal unlabored respirations, skin warm/dry/pink. Pt updated on admission status Patient denies pain at this time. 15:03 Reassessment: No changes from previously documented assessment. Patient and/or family tl4 updated on plan of care and expected duration. Pain level reassessed. Patient is alert, oriented x 3, equal unlabored respirations, skin warm/dry/pink. Pt waiting for transfer to 4th floor at 1525. Pt denies any needs at this time. Will continue to monitor Patient denies pain at this time. Vital Signs: 12:01 BP 140 / 101; Pulse 72; Resp 16; Temp 99(TE); Pulse Ox 98% on R/A; Weight 99.79 kg; iw Height 5 ft. 6 in. ; 12:30 BP 112 / 64; Pulse 63; Resp 16; Pulse Ox 97% on R/A; Pain 0/10; tl4 13:00 BP 113 / 80; Pulse 64; Resp 15; Pulse Ox 97% on R/A; tl4 13:30 BP 131 / 67; Pulse 64; Resp 19; Pulse Ox 96% on R/A; Pain 0/10; tl4 14:30 BP 112 / 84; Pulse 63; Resp 16; Temp 98.1(O); Pulse Ox 99% on R/A; Pain 0/10; tl4 15:24 BP 121 / 62; Pulse 65; Resp 16; Temp 98.2(O); Pulse Ox 97% on R/A; Pain 0/10; tl4 12:01 Body Mass Index 35.51 (99.79 kg, 167.64 cm) iw 12:30 Pain Scale: Adult tl4 13:30 Pain Scale: Adult tl4 14:30 Pain Scale: Adult tl4 15:24 Pain Scale: Adult tl4 ED Course: 11:55 Patient arrived in ED. mr 11:59 Maynor Baires MD is Attending Physician. rt 12:03 Triage completed. iw 12:04 Arm band placed on. iw 12:39 Jimbo Peoples, RN is Primary Nurse. tl4 13:10 Inserted saline lock: 22 gauge in right forearm, using aseptic technique. Blood tl4 collected. 13:12 Blood Culture Adult (2) Sent. tl4 13:12 CBC with Diff Sent. tl4 13:12 CMP Sent. tl4 13:12 Lactate w/ 2H reflex if indic. Sent. tl4 13:12 Protime (+inr) Sent. tl4 13:12 Ptt, Activated Sent. tl4 13:24 Wound Culture Sent. tl4 13:24 Initial lab(s) drawn, by me, sent to lab. First set of blood cultures drawn by me, tl4 Second set of blood cultures drawn by me, Wound culture swab sent to lab. 13:37 Bernardo Bae MD is Hospitalizing Provider. rt 13:47 Patient has correct armband on for positive identification. Placed in gown. Bed in low tl4 position. Call light in reach. Side rails up X 1. Adult w/ patient. Provided Education on: ED process. Client placed on continuous cardiac and pulse oximetry monitoring. NIBP monitoring applied. front desk monitor on. Door closed. Noise minimized. Lights dimmed. Moved to private room. Warm blanket given. Pillow given. 13:48 No provider procedures requiring assistance completed. tl4 13:53 Blood Culture Adult (2) Sent. tl4 15:04 Diet: Patient given snack. Tolerated well. tl4 15:24 Patient admitted, IV remains in place. tl4 Administered Medications: 13:24 Drug: Cefepime IVPB 2 grams IVPB at 200 ml/hr once over 30 mins; (mix in NS 100 mL) tl4 Route: IVPB; Rate: 200 ml/hr; Infused Over: 30 mins; Site: right forearm; Delivery: Primary tubing; 13:52 Follow up: Response: No adverse reaction; IV Status: Completed infusion; IV Intake: tl4 100ml 13:52 Drug: vancoMYCIN IVPB 1 grams IVPB once over 2 hrs Route: IVPB; Infused Over: 2 hrs; tl4 Site: right forearm; Delivery: Primary tubing; 15:25 Follow up: Response: No adverse reaction; IV Status: Completed infusion; IV Intake: tl4 250ml Medication: 13:51 VIS not applicable for this client. tl4 Intake: 13:52 IV: 100ml; Total: 100ml. tl4 15:25 IV: 250ml; Total: 350ml. tl4 Outcome: 13:37 Decision to Hospitalize by Provider. rt 15:24 Admitted to Tele accompanied by tech, via wheelchair, room 410, tl4 15:24 Condition: stable 15:24 Instructed on the need for admit, 15:26 Patient left the ED. tl4 Signatures: Milagros Echevarria, Reg Reg mr Fiona Mae RN RN iw Maynor Baires MD MD rt Jimbo Peoples RN RN tl4 Corrections: (The following items were deleted from the chart) 13:08 12:01 BP 140 / 101; Pulse 72bpm; Resp 16bpm; Pulse Ox 98% RA; 99.79 kg; Height 5 ft. 6 iw in.; BMI: 35.5; iw
--- NOTE | 2024-02-05 13:38 | EDPHYS ---
Physician Documentation [facility] Name: Farhan Boyer Jr Age: 68 yrs Sex: Male : 1955 Arrival Date: 02/05/2024 Time: 11:53 Bed 14 Private MD: ED Physician Maynor Baires HPI: 02/04 15:13 This 68 yrs old Male presents to ER via Ambulatory with complaints of Wound rt Infection. 15:13 Patient presents to the ED with wound, cellulitis to left lower extremity. Patient has rt completed 7-day course of antibiotics for that including Augmentin, Levaquin. States that the symptoms are not any better, somewhat gotten worse. Reports mild pain to the leg. Denies fever, chills, other acute complaints, symptoms are moderate in severity, no other aggravating or alleviating factors. Historical: - Allergies: 12:03 No Known Allergies; iw - PMHx: 12:03 Diabetes - NIDDM; Hypercholesterolemia; Hypertension; Hypothyroidism; iw - PSHx: 12:03 Stented artery; Carotid sx; iw - Immunization history:: Adult Immunizations up to date, Client reports receiving the 2nd dose of the Covid vaccine. - Infectious Disease History:: Denies. - Social history:: Smoking status: Patient denies any tobacco usage or history of. - Family history:: not pertinent. ROS: 15:13 Constitutional: Negative for fever, chills, and weight loss, Cardiovascular: Negative rt for chest pain, palpitations, and edema, Respiratory: Negative for shortness of breath, cough, wheezing, and pleuritic chest pain, Abdomen/GI: Negative for abdominal pain, nausea, vomiting, diarrhea, and constipation, Neuro: Negative for headache, weakness, numbness, tingling, and seizure, 15:13 Skin: Positive for cellulitis, Purulent discharge, Exam: 15:13 Constitutional: This is a well developed, well nourished patient who is awake, alert, rt and in no acute distress. Head/Face: Normocephalic, atraumatic. Chest/axilla: Normal chest wall appearance and motion. Nontender with no deformity. No lesions are appreciated. Cardiovascular: Regular rate and rhythm with a normal S1 and S2. No gallops, murmurs, or rubs. Normal PMI, no JVD. No pulse deficits. Respiratory: Lungs have equal breath sounds bilaterally, clear to auscultation and percussion. No rales, rhonchi or wheezes noted. No increased work of breathing, no retractions or nasal flaring. Abdomen/GI: Soft, non-tender, with normal bowel sounds. No distension or tympany. No guarding or rebound. No evidence of tenderness throughout. 15:13 ECG was reviewed by the Attending Physician. 15:13 Musculoskeletal/extremity: Cellulitic changes to the distal left lower extremity. Pulses, motor, sensation intact, there is a small purulent discharge noted from the oden.. 15:13 Skin: Vital Signs: 12:01 BP 140 / 101; Pulse 72; Resp 16; Temp 99(TE); Pulse Ox 98% on R/A; Weight 99.79 kg; iw Height 5 ft. 6 in. ; 12:30 BP 112 / 64; Pulse 63; Resp 16; Pulse Ox 97% on R/A; Pain 0/10; tl4 13:00 BP 113 / 80; Pulse 64; Resp 15; Pulse Ox 97% on R/A; tl4 13:30 BP 131 / 67; Pulse 64; Resp 19; Pulse Ox 96% on R/A; Pain 0/10; tl4 14:30 BP 112 / 84; Pulse 63; Resp 16; Temp 98.1(O); Pulse Ox 99% on R/A; Pain 0/10; tl4 15:24 BP 121 / 62; Pulse 65; Resp 16; Temp 98.2(O); Pulse Ox 97% on R/A; Pain 0/10; tl4 12:01 Body Mass Index 35.51 (99.79 kg, 167.64 cm) iw 12:30 Pain Scale: Adult tl4 13:30 Pain Scale: Adult tl4 14:30 Pain Scale: Adult tl4 15:24 Pain Scale: Adult tl4 MDM: 12:09 Patient medically screened. rt 15:13 Differential diagnosis: Cellulitis. Data reviewed: vital signs, nurses notes, lab test rt result(s), EKG. Consideration of Admission/Observation Patient was admitted/placed on observation. Management of patient was discussed with the following: Hospitalist: Agrees to admit. I considered the following discharge prescriptions or medication management in the emergency department Medications were administered in the Emergency Department. See MAR. Care significantly affected by the following chronic conditions: Diabetes. Counseling: I had a detailed discussion with the patient and/or guardian regarding the historical points, exam findings, and any diagnostic results supporting the discharge/admit diagnosis, lab results, the need for further work-up and treatment in the hospital. Response to treatment: There is no appreciated change of the patient's symptoms at this time. 02/04 12:15 Order name: Blood Culture Adult (2) rt 02/04 12:15 Order name: CBC with Diff; Complete Time: 13:29 rt 02/04 12:15 Order name: CMP; Complete Time: 13:29 rt 02/04 12:15 Order name: Lactate w/ 2H reflex if indic.; Complete Time: 13:29 rt 02/04 12:15 Order name: Protime (+inr); Complete Time: 13:29 rt 02/04 12:15 Order name: Ptt, Activated; Complete Time: 13:29 rt 02/04 12:15 Order name: Wound Culture rt 02/04 13:01 Order name: Glucose, Ancillary Testing; Complete Time: 13:29 EDMS 02/04 12:15 Order name: EKG; Complete Time: 12:15 rt 02/04 12:15 Order name: Accucheck; Complete Time: 12:49 rt 02/04 12:15 Order name: Cardiac monitoring; Complete Time: 12:39 rt 02/04 12:15 Order name: EKG - Nurse/Tech; Complete Time: 14:11 rt 02/04 12:15 Order name: IV Saline Lock - Large Bore; Complete Time: 13:11 rt 02/04 12:15 Order name: Labs collected and sent; Complete Time: 13:11 rt 02/04 12:15 Order name: O2 Per Protocol; Complete Time: 12:39 rt 02/04 12:15 Order name: O2 Sat Monitoring; Complete Time: 12:39 rt 02/04 12:15 Order name: Vital Signs; Complete Time: 12:39 rt EC:13 Rate is 62 beats/min. Rhythm is regular, Normal Sinus Rhythm with No ectopy. QRS [place] rt is Normal. NC interval is normal. QRS interval is normal. QT interval is normal. No Q waves. T waves are Normal. No ST changes noted. Interpreted by me. Administered Medications: 13:24 Drug: Cefepime IVPB 2 grams IVPB at 200 ml/hr once over 30 mins; (mix in NS 100 mL) tl4 Route: IVPB; Rate: 200 ml/hr; Infused Over: 30 mins; Site: right forearm; Delivery: Primary tubing; 13:52 Follow up: Response: No adverse reaction; IV Status: Completed infusion; IV Intake: tl4 100ml 13:52 Drug: vancoMYCIN IVPB 1 grams IVPB once over 2 hrs Route: IVPB; Infused Over: 2 hrs; tl4 Site: right forearm; Delivery: Primary tubing; 15:25 Follow up: Response: No adverse reaction; IV Status: Completed infusion; IV Intake: tl4 250ml Disposition Summary: 02/05/24 13:37 Hospitalization Ordered Notes: Hospitalization Status: Inpatient Admission rt Provider: Bernardo Bae rt Location: Telemetry/MedSurg (Inpatient) rt Condition: Fair rt Problem: an ongoing problem rt Symptoms: are unchanged rt Bed/Room Type: Standard rt Room Assignment: 410(02/05/24 14:38) bd Diagnosis - Cellulitis left lower extremity, failed outpatient therapy rt Forms: - Medication Reconciliation Form rt - SBAR form rt - Leadership Thank You Letter rt Signatures: Dispatcher [employer] EDMS Emily Mcarthur bd Fiona Mae RN RN iw Maynor Baires MD MD rt Jimbo Peoples RN RN tl4 Corrections: (The following items were deleted from the chart) 12:15 12:15 BLOOD CULTURE*+BA.LAB.BRZ ordered. EDMS EDMS 12:15 12:15 CBC+H.LAB.BRZ ordered. EDMS EDMS 12:15 12:15 COMPREHENSIVE METABOLIC PANEL+C.LAB.BRZ ordered. EDMS EDMS 12:15 12:15 LACTATE+C.LAB.BRZ ordered. EDMS EDMS 12:15 12:15 PROTIME (+INR)+COAG.LAB.BRZ ordered. EDMS EDMS 12:15 12:15 PTT, ACTIVATED+COAG.LAB.BRZ ordered. EDMS EDMS 12:15 12:15 Wound Culture+BA.LAB.BRZ ordered. EDMS EDMS 14:38 13:37 rt bd
--- NOTE | 2024-02-05 14:36 | P.HP ---
Certification for Inpatient Patient admitted to: Inpatient With expected LOS: >2 Midnights Patient will require the following post-hospital care: None Practitioner: I am a practitioner with admitting privileges, knowledge of patient current condition, hospital course, and medical plan of care. Services: Services provided to patient in accordance with Admission requirements found in Title 42 Section 412.3 of the Code of Federal Regulations Patient History Date of Service: 02/05/24 Reason for admission: Left lower extremity cellulitis History of Present Illness: 68-year-old male with history of insulin-dependent diabetes, hypertension, hyperlipidemia, hypothyroidism, CAD, carotid artery stenosis status post endarterectomy presents emergency department chief complaint of left lower extremity infection. He has been dealing with a wound/cellulitis to the left lower extremity for the past few weeks, it started 3 weeks ago when he took her sock off and noticed an area of raw skin. He has been on antibiotics most recently he completed a course of Augmentin which she was taking for 15 days starting on 01/19. He was also prescribed Levaquin from the emergency department here but had only taken 2 or 3 of those tablets. He was seen by his pottery machine operator today who referred him to the emergency department for treatment of the cellulitis. He was evaluated here in the emergency department his labs are significant for normal white blood cell count, his temperature is 99 F he does have a wound to the anterior aspect of his left lower extremity with erythema present. Patient be admitted to hospital for cellulitis of left lower extremityfailed outpatient management. Allergies No Known Allergies Allergy (Verified 11/05/23 14:38) Home Medications: Cholecalciferol (Vitamin D3) [Dialyvite Vitamin D3 Max] 1 cap PO SEECOM 05/13/23 Empagliflozin [Jardiance] 1 tab PO DAILY 05/13/23 Furosemide 1 tab PO DAILY 05/13/23 Glimepiride 1 tab PO DAILY 05/13/23 Insulin Detemir [Levemir Flexpen] 5 units SQ DAILY 05/13/23 Levothyroxine Sodium 1 tab PO DAILY 05/13/23 Losartan Potassium 1 tab PO DAILY 05/13/23 Metformin HCl 1 tab PO BID 05/13/23 Latanoprostene Bunod [Vyzulta] 1 drop OPTH BEDTIME 05/14/23 Pilocarpine HCl 1 drop OPTH BID 05/14/23 Aspirin [Aspirin EC 81 MG] 81 mg PO DAILY 30 Days #30 tab 05/15/23 Atorvastatin Calcium [Lipitor] 40 mg PO BEDTIME 30 Days #30 tab 05/15/23 Clopidogrel Bisulfate [Plavix] 75 mg PO DAILY 30 Days #30 tab 05/15/23 Metoprolol Tartrate 0.5 tab PO BID 30 Days #30 tab 05/15/23 - Past Medical/Surgical History Diabetic: Yes -: Hypertension -: DM type [id number] -: Hyperlipidemia -: Hypothyroidism -: [place] -: CAD -: Carotid stenosis -: Cataract Sx -: Gallbladder Sx -: Endarterectomy Psychosocial/ Personal History: Lives at home with family - Family History Father -: Diabetes Mother -: Heart disease - Social History Smoking Status: Never smoker Alcohol use: No CD- Drugs: No Caffeine use: No Place of Residence: Home Review of Systems 10-point ROS is otherwise unremarkable Integumentary: Rash, As per HPI Physical Examination - Physical Exam General: Alert, In no apparent distress, Oriented x3 HEENT: Atraumatic, PERRLA Neck: Supple, 2+ carotid pulse no bruit, No LAD Respiratory: Clear to auscultation bilaterally, Normal air movement Cardiovascular: Regular rate/rhythm, Normal S1 S2 Gastrointestinal: Normal bowel sounds, No tenderness Musculoskeletal: No tenderness Integumentary: Venous stasis ulcer (Ulceration present to left lower extremity with surrounding erythema), Other Neurological: Normal speech, Normal strength at 5/5 x4 extr, Normal tone - Studies Laboratory Data (last 24 hrs) 02/05/24 02/05/24 02/05/24 13:00 13:00 13:00 WBC 9.80 Hgb 13.5 L Hct 41.2 Plt Count 203 PT 11.8 INR 1.07 APTT 31.6 Sodium 141 Potassium 3.7 BUN 15 Creatinine 0.87 Glucose 130 H Total Bilirubin 0.4 AST 13 L ALT 23 Alkaline Phosphatase 92 Assessment and Plan - Plan Assessment: Left lower extremity wound/cellulitis-failed outpatient management Diabetes mellitus type 2insulin-dependent CAD S/P PCI/history of carotid artery stenosis status post endarterectomy Hypertension Hyperlipidemia Hypothyroidism Plan: Left lower extremity wound/cellulitis-failed outpatient management Blood cultures obtained, does not appear septic at this time Was most recently on Augmentin for 15 days, also was prescribed Levaquin during that time but had only taken a couple tablets Would also present overlying left anterior lower extremity, consider general surgery consultation/possible debridement Continue vancomycin/cefepime Trend CBC, monitor for fevers Diabetes mellitus type 2insulin-dependent ACHS Accu-Chek, sliding scale insulin Continue home medications CAD S/P PCI/history of carotid artery stenosis status post endarterectomy Aspirin, Plavix, metoprolol continued Hypertension Hyperlipidemia Hypothyroidism Continue home medications DVT PPX: Lovenox Code status: Full Discharge Plan: Home Plan to discharge in: 72 Hours - Advance Directives Does patient have a Living Will: No Does patient have a Durable POA for Healthcare: No - Code Status/Comfort Care Code Status Assessed: Yes (Full code) Critical Care: No Time Spent Managing Pts Care (In Minutes): 70
[2024-02-05] MEDS: VANCOMYCIN 1.75 GM in NA CHLORIDE 0.9% 500 ML IVPB SCH (16:00)
[2024-02-05 16:27] VITALS: BMI 35.5
[2024-02-05] MEDS: INSULIN REGULAR (HUMAN) 100 UNIT/ML SQ SCH (16:30)
[2024-02-05] MEDS: HYDROCODONE/APAP 5/325 MG TAB PO ONE (17:02)
[2024-02-05] MEDS: COLLAGENASE 30 GM OINTMENT TOP SCH (17:22)
[2024-02-05] MEDS: ENOXAPARIN 40 MG/0.4 ML SQ SCH (17:23)
[2024-02-05] MEDS: VANCOMYCIN 750 MG in NA CHLORIDE 0.9% 150 ML IVPB ONE (17:23)
[2024-02-05] MEDS: METFORMIN HCL 500 MG TAB PO SCH (17:23)
[2024-02-05] MEDS: METOPROLOL TAR 25 MG TAB PO SCH (20:12)
[2024-02-05] MEDS: ATORVASTATIN 40 MG TAB PO SCH (20:12)
[2024-02-05] MEDS: CEFEPIME 2 GM in NA CHLORIDE 0.9% 100 ML IV SCH (20:13)
[2024-02-05] MEDS ORDERED: HOME MED 1 EA UNK (Metformin Hcl [Metformin Hcl] 1,000 MG Tablet) PO SCH (21:00)
--- NOTE | 2024-02-05 21:14 | RAD REPORT ---
EXAM DESCRIPTION: US - Extrem Venous W Compress Rip - 02/05/2024 9:06 pm CLINICAL HISTORY: per Kovacev Bilateral leg edema and swelling. COMPARISON: Extremity Venous [facility] dated 01/23/2024 TECHNIQUE: Real-time sonographic interrogation of the left and right lower extremity deep venous sys tems was performed. FINDINGS: Normal compressibility, flow augmentation, phasic flow and spontaneous flow is identified in both the left and right lower extremity deep venous systems. IMPRESSION: No sonographic evidence of left or right lower extremity deep venous thrombosis.
--- NOTE | 2024-02-05 21:22 | RAD REPORT ---
EXAM DESCRIPTION: US - Lower Extremity Arterial Bilat - 02/05/2024 9:06 pm CLINICAL HISTORY: per Kovacev Leg pain claudication. COMPARISON: Lower Extremity Artery [facility] dated 01/23/2024 TECHNIQUE: Bilateral lower extremity arterial Doppler examination was performed with waveform tracin g and ankle brachial pressure measurements. FINDINGS: Mild multifocal multisegmental atheromatous plaquing is seen in both lower extremity arter ial systems. No significant stenosis or occlusion is seen. Posterior tibial arteries are monophasic bilaterally indicating mild distal disease. IMPRESSION: Mild distal peripheral vascular disease bilaterally.
[2024-02-06] MEDS: HYDROMORPHONE HCL 1 MG/ML INJ IV PRN (03:04)
[2024-02-06 03:44] LABS: Absolute Basophils 0.1 K/uL (0-0.5); Absolute Eosinophils 0.3 K/uL (0-0.5); Absolute Lymphocytes (CBC) 2.2 K/uL (0.7-4.9); Absolute Monocytes 0.7 K/uL (0.1-1.3); Basophils % 1.3 % (0-1.3); Eosinophils % 4.2 % (0-4.4); Hematocrit 38.1 % (39.6-49.0); Hemoglobin 12.8 g/dL (13.6-17.9); Lymphocytes % 26.4 % (15.3-44.8); MCH 30.9 pg (27.0-35.0); MCHC 33.6 g/dL (32.0-36.0); MPV 11.5 fL (7.6-11.3); Monocytes % 8.1 % (3.3-12.3); Nucleated Red Blood Cells % 0.1 % (0-0); Platelets 187 thou/uL (152-406); RBC Red Blood Cell Count 4.15 M/uL (4.33-5.43)
[2024-02-06 03:59] LABS: Anion Gap 6.8 mEq/L (5.0-15.0); Potassium 3.8 mEq/L (3.5-5.1)
[2024-02-06] MEDS: LEVOTHYROXINE SOD 0.025 MG TAB PO SCH (06:06)
[2024-02-06] MEDS: INSULIN REGULAR (HUMAN) 100 UNIT/ML SQ SCH (07:30)
[2024-02-06] MEDS: LOSARTAN POTASSIUM 50 MG TABLET PO SCH (08:04)
[2024-02-06] MEDS: GLIMEPIRIDE 2 MG TABLET PO SCH (08:05)
[2024-02-06] MEDS: ASPIRIN EC 81 MG TAB PO SCH (08:05)
[2024-02-06] MEDS: CLOPIDOGREL 75 MG TABLET PO SCH (08:05)
[2024-02-06] MEDS: HOME MED (Empagliflozin [Jardiance] 25 MG Tablet) PO SCH (08:06)
[2024-02-06] MEDS ORDERED: HOME MED 1 EA UNK (Glimepiride [Glimepiride] 4 MG Tablet) PO SCH (09:00)
[2024-02-06] MEDS: POTASSIUM CL SA 10 MEQ TAB PO ONE (09:23)
[2024-02-06] MEDS: VANCOMYCIN 1.75 GM in NA CHLORIDE 0.9% 500 ML IVPB SCH (11:30)
--- NOTE | 2024-02-06 11:31 | P.PN ---
Date of Service: 02/06/24 Subjective awake and conversing with his daughters via iPad Feeling well this morning No new complaint Wound showing serosanguineous drainage ROS 10 point ROS as noted above, otherwise negative Physical Exam General: AAOx3, NAD, afebrile, conversing well HEENT: Atraumatic, PERRLA Neck: Supple, 2+ carotid pulse no bruit, No LAD Respiratory: Symmetrical chest wall movement, clear breath sounds bilaterally Cardiovascular: RRR, S1 S2 present, no murmur noted Gastrointestinal: Normal active bowel sounds, No tenderness on palpation Musculoskeletal: Tenderness to left lower extremity, peripheral pulses noted bilaterally Integumentary: Venous stasis ulcer (Ulceration present to left lower extremity with surrounding erythema), outer dressing CDI, inner dressing with serosanguineous drainage. Neurological: Normal speech, Normal strength at 5/5 x4 extr, Normal tone Vitals Reviewed Assessment: Left lower extremity wound/cellulitis-failed outpatient management Diabetes mellitus type 2insulin-dependent CAD S/P PCI/history of carotid artery stenosis status post endarterectomy Hypertension Hyperlipidemia Hypothyroidism Plan: Left lower extremity wound/cellulitis-failed outpatient management Was most recently on Augmentin for 15 days, also was prescribed Levaquin during that time but had only taken a couple tablets Follow Blood cultures no growth today Wound culture (02/04) NGTD Dr. Saleh consulted recommends wound care with Santyl/vashe Continue vancomycin/cefepime Ultrasound arterial bilaterally reports "Posterior tibial arteries are monophasic bilaterally indicating mild distal disease. IMPRESSION: Mild distal peripheral vascular disease bilaterally." Trend CBC, monitoring for fevers Diabetes mellitus type 2insulin-dependent ACHS Accu-Check, sliding scale insulin Continue home medications A1c 7.6 CAD S/P PCI/history of carotid artery stenosis status post endarterectomy Continue aspirin, Plavix, and metoprolol Hypertension Hyperlipidemia Hypothyroidism Continue home medications DVT PPX: Lovenox Code status: Full Discharge Plan: Home Plan to discharge in: 72 Hours
--- NOTE | 2024-02-06 14:02 | EKG ---
Test Date: 2024-02-05 Test Time: 14:04:09 University Administrator: TL MEASUREMENT RESULTS: Intervals: Rate: 62 MS: 140 QRSD: 78 QT: 400 QTc: 406 [place]: P: 38 MS: 140 QRS: 39 T: 17 INTERPRETIVE STATEMENTS: Normal sinus rhythm Normal ECG Compared to ECG 02/01/2024 21:08:30 No significant changes Electronically Signed On 02-06-24 13:59:48 CDT by Parker Charlton
[2024-02-07 03:29] LABS: Absolute Basophils 0.1 K/uL (0-0.5); Absolute Eosinophils 0.4 K/uL (0-0.5); Absolute Lymphocytes (CBC) 1.8 K/uL (0.7-4.9); Absolute Monocytes 0.8 K/uL (0.1-1.3); Absolute Neutrophil 5.9 K/uL (1.8-8.0); Basophils % 0.8 % (0-1.3); Eosinophils % 4.3 % (0-4.4); Hematocrit 36.8 % (39.6-49.0); Hemoglobin 12.1 g/dL (13.6-17.9); Lymphocytes % 20.1 % (15.3-44.8); MCH 30.5 pg (27.0-35.0); MCHC 32.9 g/dL (32.0-36.0); MCV 92.7 fL (80-100); MPV 10.9 fL (7.6-11.3); Monocytes % 9.1 % (3.3-12.3); Neutrophils % 65.7 % (41.7-73.7); Platelets 183 thou/uL (152-406); RBC Red Blood Cell Count 3.96 M/uL (4.33-5.43); Red Cell Distribution Width 13.9 % (12.1-15.2)
[2024-02-07 03:48] LABS: Anion Gap 4.8 mEq/L (5.0-15.0); Potassium 3.8 mEq/L (3.5-5.1)
[2024-02-07 08:31] VITALS: TEMP 97.3
[2024-02-07] MEDS: POTASSIUM CL SA 10 MEQ TAB PO ONE (08:57)
[2024-02-07 09:23] VITALS: BP 138/61; O2SAT 976
--- NOTE | 2024-02-07 12:57 | P.DS ---
Admission Date: 02/05/24 Discharge Date: 02/09/24 Disposition: DC HOME/HOME HEALTH CARE Discharge Condition: GOOD Reason for Admission: Left lower extremity cellulitis Brief History of Present Illness: Diagnosis Left lower extremity wound/cellulitis-failed outpatient management Diabetes mellitus type 2insulin-dependent CAD S/P PCI/history of carotid artery stenosis status post endarterectomy Hypertension Hyperlipidemia Hypothyroidism HPI 02/05/24 Farhan Boyer is a 68-year-old male with history of insulin-dependent diabetes, hypertension, hyperlipidemia, hypothyroidism, CAD, carotid artery stenosis sta tus post endarterectomy presents emergency department chief complaint of left lower extremity infection. He has been dealing with a wound/cellulitis to the left lower extremity for the past few weeks, it started 3 weeks ago when he took her sock off and noticed an area of raw skin. He has been on antibiotics most recently he completed a course of Augmentin which she was taking for 15 days starting on 01/19. He was also prescribed Levaquin from the emergency department here but had only taken 2 or 3 of those tablets. He was seen by his editor at large today who referred him to the emergency department for treatment of the cellulitis. He was evaluated here in the emergency department his labs are significant for normal white blood cell count, his temperature is 99 F he does have a wound to the anterior aspect of his left lower extremity with erythema present. Patient be admitted to hospital for cellulitis of left lower extremityfailed outpatient management. Hospital Course: Farhan Boyer is a pleasant 68-year-old male with a past medical history significant for nsulin-dependent diabetes, hypertension, hyperlipidemia, hypothyroidism, CAD, carotid artery stenosis status post endarterectomy who was admitted to the [facility] on 02/05/2024 for cellulitis of left lower extremityfailed outpatient management. Farhan Boyer presented to the ED with chief complaint of left lower extremity injury. He had failed outpatient treatment. During this admission he has tolerated IV antibiotics and has remained afebrile with a normal white count. Wound care instructions given by Dr. Saleh to use the Vashe cleanser and santyl ointment daily. Follow-up with Dr. Saleh in 1 week for further evaluation of the wound. On 02/07/2024, Farhan was seen on morning rounds and deemed medically stable for discharge. Right third was discharged with instructions to schedule follow-up appointments with PCP and Dr. Saleh. Farhan was provided prescriptions for Keflex and Santyl ointment. The patient was given the opportunity to ask questions and reported no further questions. Furthermore, all questions were answered to the best of my ability. A copy of this discharge summary will be sent to the above providers to facilitate continuity of care. Physical Exam General: Alert and oriented x 3, no acute distress, comfortable HEENT: Atraumatic, PERRLA Neck: Supple, 2+ carotid pulse no bruit, No LAD Respiratory: Symmetrical chest wall movement, clear breath sounds bilaterally, on room air Cardiovascular: Regular rate and rhythm, S1 S2 present, no murmur noted Gastrointestinal: Normal active bowel sounds, No tenderness on palpation Musculoskeletal: Tenderness to left lower extremity, peripheral pulses noted bilaterally Integumentary: Venous stasis ulcer (Ulceration present to left lower extremity with surrounding erythema), outer dressing CDI Neurological: Normal speech, Normal strength at 5/5 x4 extr, Normal tone Vital Signs/Physical Exam: Temp Pulse Resp BP Pulse Ox 97.3 F 62 18 138/61 96 02/07/24 08:00 02/07/24 08:57 02/07/24 10:19 02/07/24 08:57 02/07/24 10:19 Laboratory Data at Discharge: WBC 9.00 thou/uL (4.3-10.9) 02/07/24 03:17 Hgb 12.1 g/dL (13.6-17.9) L 02/07/24 03:17 Hct 36.8 % (39.6-49.0) L 02/07/24 03:17 Plt Count 183 thou/uL (152-406) 02/07/24 03:17 PT 11.8 SECONDS (9.5-12.5) 02/05/24 13:00 INR 1.07 02/05/24 13:00 APTT 31.6 SECONDS (24.3-36.9) 02/05/24 13:00 Sodium 139 mEq/L (136-145) 02/07/24 03:17 Potassium 3.8 mEq/L (3.5-5.1) 02/07/24 03:17 BUN 14 mg/dL (7-18) 02/07/24 03:17 Creatinine 0.75 mg/dL (0.70-1.30) 02/07/24 03:17 Glucose 81 mg/dL (74-106) 02/07/24 03:17 Total Bilirubin 0.4 mg/dL (0.2-1.0) 02/05/24 13:00 AST 13 U/L (15-37) L 02/05/24 13:00 ALT 23 U/L (16-61) 02/05/24 13:00 Alkaline Phosphatase 92 U/L (45-117) 02/05/24 13:00 Home Medications: Cholecalciferol (Vitamin D3) [Dialyvite Vitamin D3 Max] 1 cap PO SEECOM 05/13/23 Empagliflozin [Jardiance] 1 tab PO DAILY 05/13/23 Glimepiride 1 tab PO DAILY 05/13/23 Insulin Detemir [Levemir Flexpen] 5 units SQ DAILY 05/13/23 Levothyroxine Sodium 1 tab PO DAILY 05/13/23 Losartan Potassium 1 tab PO DAILY 05/13/23 Metformin HCl 1 tab PO BID 05/13/23 Latanoprostene Bunod [Vyzulta] 1 drop OPTH BEDTIME 05/14/23 Pilocarpine HCl 1 drop OPTH BID 05/14/23 Aspirin [Aspirin EC 81 MG] 81 mg PO DAILY 30 Days #30 tab 05/15/23 Atorvastatin Calcium [Lipitor] 40 mg PO BEDTIME 30 Days #30 tab 05/15/23 Clopidogrel Bisulfate [Plavix] 75 mg PO DAILY 30 Days #30 tab 05/15/23 Metoprolol Tartrate 0.5 tab PO BID 30 Days #30 tab 05/15/23 Cephalexin [Keflex] 500 mg PO Q6HR 5 Days #20 cap 02/07/24 Collagenase [Santyl Ointment*] 1 appl TOP DAILY 10 Days #1 tube 02/07/24 New Medications: Cephalexin [Keflex] 500 mg PO Q6HR 5 Days #20 cap Collagenase [Santyl Ointment*] 1 appl TOP DAILY 10 Days #1 tube Physician Discharge Instructions: Farhan Boyer presented to the ED with chief complaint of left lower extremity injury. He had failed outpatient treatment. During this admission he has tolerated IV antibiotics and has remained afebrile with a normal white count. Wound care instructions given by Dr. Saleh to use the Vashe cleanser and santyl ointment daily. 1. Please call and schedule a follow-up appointment with your PCP in 3-5 days - Please follow-up with your PCP for medication refills/adjustments 2. Please call and schedule a follow-up appointment with Dr. Saleh in one week at the wound care clinic 3. Continue diabetic diet, keep blood sugars under 200 to help with healing 4. activity restrictions as tolerated 5. continue with wound care as described below 6. Return to the ED if symptoms worsen New medications Keflex 500 mg Q6hrs for 5 days Wound care to left lower extremity wound care with vashe cleanser and pat dry before applying santyl ointment- daily Further direction to be given by wound care and Dr. Saleh in one week [facility] arranged: [facility] ([facility]) P:[phone] F:[phone] Diet: ADA Activity: Ad ana Followup: Eloy Saleh MD [ACTIVE - CAN ADMIT] - 1-2 Weeks JYOTSNA WU [Primary Care Provider] -
== END 2024-02-07 11:29 | disposition home health service (06) | DRG 603 ==
LOC: ER 11:53 → ERHOLD 14:20 → 4TH 14:41
PROVIDERS: ADMIT Hospitalist; ATTEND Hospitalist
DX: L03.116 Cellulitis of left lower limb (principal); I10 Essential (primary) hypertension; E11.9 Type 2 diabetes mellitus without complications; E78.00 Pure hypercholesterolemia, unspecified; E03.9 Hypothyroidism, unspecified; I25.10 Atherosclerotic heart disease of native coronary artery without angina pectoris; Z79.4 Long term (current) use of insulin; Z79.82 Long term (current) use of aspirin; Z79.84 Long term (current) use of oral hypoglycemic drugs; Z79.02 Long term (current) use of antithrombotics/antiplatelets; Z79.890 Hormone replacement therapy; Z79.899 Other long term (current) drug therapy
CPT/HCPCS: 36415; 80048; 80053; 80202; 82947; 83036; 83605; 85025; 85610; 85730; 87040; 87070; 87205; 93005; 93925; 93970; 96365; 96367; 99285; J0692; J1170; J1650; J3590; J7040; J7050

== ENCOUNTER 2024-03-24 18:48 | Observation (INO) | payer OTHER ==
--- OUTSIDE RECORDS SUMMARY | 2024-03-24 18:51 | XMS REPORT | Continuity of Care Document ---
Author Name Unknown Address [address] [facility] [place] [address] [facility] Address [address] [facility] [address] [place] [address] Care Team Providers Care Electric Distribution Engineer Name Role Phone Jackson Montgomery Attending Clinician [...] s DA Active U 12-03 00:00: 00 [facility] Procedures Procedure Date / Time Performed Performing Clinicia n Source [id number] 2023-12-06 00:00:00 [facility] [id number] 2023-12-06 00:00:00 [facility] [id number] 2023-12-06 00:00:00 [facility]01 [facility] [id number] 2023-12-06 00:00:00 [facility]01 [facility] [id number] 2023-12-06 00:00:00 [facility] [id number] 2023-12-06 00:00:00 [facility]01 [facility] Encounters Start Date/Time End Date/Time Encounter Type Admission Type Attending Clinicians Care Facility Care Department Encounter ID Source 2020-08-15 13:00:00 Inpatient Jackson Harman [facility] [id number] [facility] 2023-12-06 05:31:00 2023-12-07 15:43:00 Inpatient Anurag Wayne [facility] [id number] [facility] 2022-04-18 15:27:00 2022-04-18 15:27:00 [facility] [id number] [facility] Results Test Description Test Time Test Comments Results Result Co mments Source BASIC METABOLIC [id number] 03:38:00* Test Item Value Reference Range Interpretation [...] code = CA) 8.9 mg/dL 8.0-10.5 N [id number] 03:38:00* Test Item Value Reference Range Interpretation Comme nts MAGNESIUM (test code = MAG) 1.72 mg/dL 1.6-2.6 N CBC W/AUTO [id number] 03:16:00* Test Item Value Reference Range Interpretation [...] NRBC#) 0.00 x10 3/uL 0.0-0.1 N GLUCOSE [id number] 21:16:00* Test Item Value Reference Range Interpretation Comme [facility] GLUCOSE BEDSIDE (test code = GLUBED) 190 MG/DL 70-110 H Performed by cer tified grid operator at [facility] GLUCOSE [id number] 12:30:00* Test Item Value Reference Range Interpretation Comme [facility] GLUCOSE BEDSIDE (test code = GLUBED) 155 MG/DL 70-110 H Performed by cer tified grid operator at [facility] BASIC METABOLIC [id number] 12:26:00* Test Item Value Reference Range Interpretation [...] = CA) 8.4 mg/dL 8.0-10.5 N HGB [id number] 12:12:00* Test Item Value Reference Range Interpretation Comme nts HEMOGLOBIN (test code = HGB) 13.3 g/dL 12.5-16.9 N HEMATOCRIT (test code = HCT) 40.5 % 37.5-50.7 N [id number] 07:47:00* Test Item Value Reference Range Interpretation Comme nts ACT-ISTAT (test code = ACTI) 293 SEC 74-137 H Performed by cer tified grid operator at [facility] GLUCOSE [id number] 07:08:00* Test Item Value Reference Range Interpretation Comme [facility] GLUCOSE BEDSIDE (test code = GLUBED) 127 MG/DL 70-110 H Performed by [facility] tified grid operator at [facility] - XR CHEST 2 [id number] 12:25:00 [facility] : 1955 Sex: M FAX: Anurag Roth MD [phone] [place]: [address]: PRE Name: JAYJAY BOYER JR [facility] : 1955 Age/S: 68/M[address] Unit #: [id number] Loc: [place] [address] Phys: Anurag Mruo MD Acct: [id number] Dis Date: Status: PRE IN PHONE #: [phone] Exam Date: 12/04/2023 1140 FAX #: [phone] Reason: PREOP EXAMS: CPT CODE: [id number] XR CHEST 2 V 84651 EXAM: CHEST 2 VIEWS INDICATION: PREOP LOCATION: B2 COMPARISON: None available TECHNIQUE: PA and lateral views of the chest. FINDINGS: The heart size is normal. The lungs are clear bilaterally. The pulmonary vasculature is normal. No pneumothorax or pleural effusion is identified. The osseous structures are normal. IMPRESSION: No acute cardiopulmonary process. at 6256 Reported and signed by: Sanjana Nowak M.D. CC: Anurag Muro MD Technologist: RT Malcolm(R) Trnscrd Date/Time/By: 12/04/2023 (9895) : By: 16 [facility] Print D/T: S: 12/04/2023 (2854) PAGE 1 Signed ReportCOMPREHENSIVE METABOLIC [id number] 11:40:00* Test Item Value Reference Range Interpretation [...] IUnit/L 20-125 N COVID 19 Asymptomatic IH [id number] 11:36:00* Test Item Value Reference Range Interpretation [...] perform moderate, high or waivedcomplexity tests. PROTHROMBIN [id number] 11:35:00* Test Item Value Reference Range Interpretation [...] Infarction (to prevent recurrent infarct). THROMBOPLASTIN TIME [id number] 11:35:00* Test Item Value Reference Range Interpretation Comme nts THROMBOPLASTIN TIME PARTIAL (test code = PTT) 35.5 Seconds 25.0-39.5 N Therapeutic Rang e: 50.4 - 88.3 Seconds Effective 01/13/2019 UA RFLX MICR CULT IF [id number] 11:26:00* Test Item Value Reference Range Interpretation [...] culture: Temperature > 100.4 FSpecimen Description: [facility] W/AUTO [id number] 11:24:00* Test Item Value Reference Range Interpretation [...] x10 3/uL 0.0-0.1 N - DUP EXTRACRANIAL [id number] 14:15:00 [facility] : 1955 Sex: MPatient Name: JAYJAY BOYER Unit No: [id number] EXAMS: CPT: [id number] DUP EXTRACRANIAL CHARISSE 32748 BILATERAL CAROTID ARTERY ULTRASOUND AND DUPLEX IMAGING [...] studies are available for comparison TECHNICAL NOTE: anesthesiology technologist: Iris Johns RVT Following the Vascular [...] by: LEON LI MD Name: JAYJAY BOYER [facility] Phys: Jackson Bernard MD [address] [facility] : 1955 Age: 65 Sex: M [place] [address] Loc: N.[facility] Exam Date: 08/15/2020 Status: REG CLI PH: FAX: PAGE 1 Signed Report (CONTINUED) Patient Name: JAYJAY BOYER Unit No: [id number] EXAMS: CPT: [id number] DUP EXTRACRANIAL CHARISSE 82198 (Continued) CC: Jackson Montgomery MD Technologist: Iris Marquez Probe: Trscr Dt/Tm: 08/15/2020 (1415) by: Orig Print D/T: S: 08/15/2020 (1418) BATCH NO: N/A Name: JAYJAY BOYER [facility] Phys: Jackson Bernard MD [address] [facility] : 1955 Age: 65 Sex: M [place] [address] Loc: N.USN Exam Date: 08/15/2020 Status: REG CLI PH: FAX: PAGE 2 Signed Report Notes Date/Time Note Provider Source 2023-12-07 12:54:00 [id number] gceaGKe/JlbiJefLPCmeuegEawcL5 KK0mDALFlScA1ziGkUbIhlrHIIR5215-77-08V40:54:00 [facility] ([facility])Discharge SummaryREPORT#:[id number] REPORT STATUS: SignedREPORT INITIALIZATION DATE:12/07/23 TIME: 1254 PATIENT: JAYJAY BOYER JR UNIT #: [id number]#: [id number] [address] [birth year] AGE: 68 SEX: M ATTEND: [...] of motion, normal inspection, painless range of motionNeuro/CATERING MANAGER: alert, oriented X 3, no motor deficits, [...] (Auto) (14.0 - 32.0 %) 12.3 L [place] % (Auto) (4.8 - 9.0 %) 9.0 Eos % (Auto) (0.3 - 3.7 %) 0.0 L Baso % (Auto) (0.0 - 2.0 %) 0.2 Neut # (Auto) (2.0 - 7.6 x10 3/uL) 9.62 H Lymph # (Auto) (1.0 - 3.8 x10 3/uL) 1.51 [place] # (Auto) (0.1 - 0.8 x10 3/uL) [...] or OlderDiscussed with: patient at 0940 RPT #:[id number] OF REPORTDSDischarge iiwzwxk1796-50-67F84:54:00G.KNQL85926291-7509LZDh ailable for patient xktuYSHCHSFAKTHYCF4139-45-72C83:42:10 [facility] 2023-12-07 12:20:00 [id number] ZZz6Y+pV7xPzvJeHupb7E1YazffBQ NHegtq/ThJdhWiyr4OWjVUhX7Wq0751-46-98U04:20:00 [facility] ([facility])Cardiology Progress NoteREPORT#:[id number] REPORT STATUS: SignedREPORT INITIALIZATION DATE:12/07/23 TIME: 1220 PATIENT: JAYJAY BOYER JR UNIT #: [id number]#: [id number] [address] [birth year] AGE: 68 SEX: M ATTEND: [...] (Auto) (14.0 - 32.0 %) 12.3 L [place] % (Auto) (4.8 - 9.0 %) 9.0 Eos % (Auto) (0.3 - 3.7 %) 0.0 L Baso % (Auto) (0.0 - 2.0 %) 0.2 Neut # (Auto) (2.0 - 7.6 x10 3/uL) 9.62 H Lymph # (Auto) (1.0 - 3.8 x10 3/uL) 1.51 [place] # (Auto) (0.1 - 0.8 x10 3/uL) [...] STABLE FROM CARDIAC POINT at 1221 RPT #:[id number] OF REPORTPRProgress nxwa6105-66-39R79:20:00G.YSYE44547048-5407WRDpjlb able for patient cvroPUMSDJEAPMKZWL0669-31-40F57:21:50 [facility] 2023-12-06 20:45:00 [id number] wD0q2NgQOgZpPDmZpwxTwvK+xn1JH GFV/VwIkQzdwRcUQADAVnZeJf3/4438-16-23A21:45:00 [facility]Card[facility] ConsultationREPORT#:[id number] REPORT STATUS: SignedREPORT INITIALIZATION DATE:12/06/23 TIME: 2044 PATIENT: JAYJAY BOYER JR UNIT #: [id number]#: [id number] [address] [birth year] AGE: 68 SEX: M ATTEND: [...] softLower extremity: LE assessment: no cyanosis, no edemaNeuro/CATERING MANAGER: alert, oriented X 3, normal speechSkin: dry, [...] care per CT surgery. at 0816 RPT #:[id number] OF REPORTNMZdvzlntyljhv4709-67-02I15:45:00G.PDOC2 2191115-5172TTFkvhvnnxy for patient ymtpQWKFONMCHZKVIQ2257-98-74R21:16:39 [facility] 2023-12-06 17:47:00 [id number] aVlTOeT8dHb2BLyGLHfbdweC8yAEK PXSOJH83vyPe4x08qYT4cwj1/ab2963-37-94F92:47:78685 9-[address] [place], [place] [address] PATIENT NAME: JAYJAY BOYER JR ADMIT DATE: 12/06/23ACCOUNT NO: [id number] ROOM NO: G.2203 AGE: 68 REPORT TYPE: OPERATIVE REPORT SEX: M ADMITTING PHYSICIAN:Anurag Muro MD ATTENDING PHYSICIAN:Anurag Muro MD OPERATION DATE: 12/06/2023 PREOPERATIVE DIAGNOSIS: Severe asymptomatic left internal carotid artery stenosis. POSTOPERATIVE DIAGNOSIS: Severe asymptomatic left internal carotid artery stenosis. OPERATION: Left carotid endarterectomy. SURGEON: Simone Muro M.D. ROOM MANAGER: Chay Mcneal. ANESTHESIOLOGIST: Dr. Mccollum. ANESTHESIA: General [...] artery using Kay scissors. Next, using a [place] dissector, endarterectomy of the left common and [...] Dictated: 12/06/2023 17:47:32Date Transcribed: 12/06/2023 21:25:08LINDSEY/SEFERINO/Margret #: [id number] ID: [id number] by Anurag Muro MD On 12/15/2023 07:03:35 AM at 0703 PATIENT NAME: JAYJAY BOYER lnbczt8181-03-96U44:25:00G.DAK06994099-6020MGHzgs lable for patient olvpJJGRWJSAWKRLTA5516-62-92A78:53:41 [facility] 2023-12-06 17:42:00 [id number] SP4db/C0/u2t3oesX9yBw5kzUbWPp UVgnFIkll/lVrmZ2qQslVknfRZX6654-23-88H41:42:00 [facility] ([facility])Op/Inv Procedure Note - BriefREPORT#:[id number] REPORT STATUS: SignedREPORT INITIALIZATION DATE:12/06/23 TIME: 1741 PATIENT: JAYJAY BOYER JR UNIT #: [id number]#: [id number] [address] [birth year] AGE: 68 SEX: M ATTEND: Anurag Muro MDADM AUTHOR: Anurag Muro MDREPT SERVICE DT/TIME: 12/06/231741* ALL edits or amendments must be made on the electronic/computer document * Op/Inv Proc Note - Brief TEXT Brief Op/Inv Procedure NoteNote details:*PRE-PROCEDURE DIAGNOSIS:[] Severe asymptomatic left carotid artery stenosis *POST-PROCEDURE DIAGNOSIS:Same[] *PROCEDURE(S) PERFORMED:[] Left carotid endarterectomy *PRIMARY SURGEON:[]Bhaskar *ROOM MANAGER(S):[]Chay Mcneal ANESTHETIC:[]GETA *ESTIMATED BLOOD LOSS in ml's:[]20 cc *SPECIMEN(S) REMOVED:[]Calcified*COMPLICATIONS:None[] DRAIN(S):None[] 7 KARINA TUBE(S):None[] IMPLANT(S):Bovine pericardialFLUIDS:[] DISPOSITION:To CVICU at 1749 RPT #:[id number] OF REPORTPNProcedure mfuq8488-05-57K98:42:00G.CKIQ36730310-4380MZUiuuv able for patient jdwtWFUPRNDVWDGKYV8727-11-72H77:49:31 [facility] 2023-12-06 15:18:00 [id number] 0/+7jzrdVhUVQ3oLVIzlFqyEEpk8O QZB8N5OUx5HzKm5o9k1P2R8Kgzp0859-94-53W27:18:00 [facility] ([facility])Critical Care Consult NoteREPORT#:[id number] REPORT STATUS: SignedREPORT INITIALIZATION DATE:12/06/23 TIME: 1517 PATIENT: JAYJAY BOYER JR UNIT #: [id number]#: [id number] ROOM/BED: 2203-1DOB: [birth year] AGE: 68 SEX: M ATTEND: Anurag Muro MDADM AUTHOR: Nazario Henriquez MDREPT SERVICE DT/TIME: 12/06/23 8752* ALL edits or amendments must be made [...] react lightNeck supple, left carotid drainChest clearHeart S1-D6Dqmlevq soft, bowel sounds presentExtremities no edemaCNS intact Diagnosis, Assessment PlanFree text DxA P:Severe left carotid stenosis s/p left CEAPostoperative painCAD Patient underwent left CEA for severe stenosis. GB drain in place, monitor output. Monitor H H. Monitor blood pressure. Pain control. Resume home medication. Continuous patient monitor. Neurovascular check. Monitor closely in ICU. Case was discussed at bedside with the patient and nursing staff. at 1747 [facility] #:[id number] OF REPORTDMKcyphmsnwgaw1788-67-38S60:18:00G.PDOC2 7941468-9601ZGXbtfucxzu for patient yxgsTLMMZLHPTSINHE2629-39-48Z36:48:02 [facility] 2023-12-06 10:03:00 [id number] j696vS50kGVbt7LRBCWQg59VgXv5+ AhQwWtONcm2joPtjb306VURkwKV0179-06-52N91:03:00 [facility] ([facility])History Physical - AdultREPORT#:[id number] REPORT STATUS: SignedREPORT INITIALIZATION DATE:12/06/23 TIME: 100 PATIENT: JAYJAY BOYER JR UNIT #: [id number]#: [id number] ROOM/BED: 2203-1DOB: [birth year] AGE: 68 SEX: M [...] of motionMusculoskeletal: full range of motion, normal inspectionNeuro/CATERING MANAGER: alert, oriented X 3Skin: dry, intact ResultsFindings/Data:Laboratory [...] heart rhythmCritical care consulted at 0940 RPT #:[id number] OF REPORTHPHistory and physical nudpfjsegzv2192-78-55G58:03:00G.SZEQ40346414-2576 AVAvailable for patient gzpnPMLYWFWFONSWJL2156-82-90A35:41:29 [facility] 2023-12-04 11:13:00 [id number] SY4NoeNavtUxOfaeG/HX4GNaRPoWg Fn6s9C6zUCfaINLI6gsnRd8Ilmm6441-29-08Y46:13:50150 6-0039 [place] [address] PATIENT NAME: JAYJAY BOYER JR ADMIT DATE: ACCOUNT NO: [id number] ROOM NO: AGE: 68 REPORT TYPE: eELECTROCARDIOGRAM REPORT SEX: M ADMITTING PHYSICIAN:Anurag Muro MD ATTENDING PHYSICIAN:Anurag Muro MD Order:[id number] Reason : PREOP Test Date/Time Stamp:SatDec 04 [...] MD at 1306 PATIENT NAME: JAYJAY BOYER .[id number] AVAvailable for patient wchxPRBDUEDHNRYWZR7141-99-13Q93:06:35 [facility]
[2024-03-24 19:45] LABS: Absolute Basophils 0.1 K/uL (0-0.5); Absolute Eosinophils 0.1 K/uL (0-0.5); Absolute Lymphocytes (CBC) 1.5 K/uL (0.7-4.9); Absolute Monocytes 0.7 K/uL (0.1-1.3); Absolute Neutrophil 6.3 K/uL (1.8-8.0); Hematocrit 42.3 % (39.6-49.0); Lymphocytes % 16.8 % (15.3-44.8); MCHC 33.2 g/dL (32.0-36.0); MCV 90.4 fL (80-100); MPV 10.9 fL (7.6-11.3); Monocytes % 8.1 % (3.3-12.3); Neutrophils % 73.1 % (41.7-73.7); Nucleated Red Blood Cells % 0.1 % (0-0); PT Prothrombin Time 11.8 SECONDS (9.4-12.5); Platelets 182 thou/uL (152-406); Protime INR 1.07; RBC Red Blood Cell Count 4.68 M/uL (4.33-5.43)
[2024-03-24] MEDS ORDERED: NA CHLORIDE 0.9% 1,000 ML ONE (19:52)
[2024-03-24] MEDS ORDERED: ASPIRIN 81 MG CHEWABLE TABLET ONE (19:52)
[2024-03-24 19:58] LABS: ALT/SGPT 24 U/L (16-61); AST/SGOT < 10 U/L (15-37); Albumin 3.6 g/dL (3.4-5.0); Alkaline Phosphatase 108 U/L (45-117); Anion Gap 10.2 mEq/L (5.0-15.0); BUN Blood Urea Nitrogen 15 mg/dL (7-18); Bicarbonate 27 mEq/L (21-32); Bilirubin Direct < 0.2 mg/dL (0-0.2); Bilirubin Indirect, Calculated 0.2 mg/dL (0.2-0.8); Bilirubin Total 0.4 mg/dL (0.2-1.0); Globulin 3.7 g/dL (2.3-3.5); Glomerular Filtration Rate 76 ml/min (=/>90); Glucose Level 240 mg/dL (74-106); Lipase 37 U/L (13-75); NT PRO-BNP 284 pg/mL (<125); Potassium 4.2 mEq/L (3.5-5.1); Protein, Total 7.3 g/dL (6.4-8.2); Sodium Level 136 mEq/L (136-145); Troponin High Sensitivity 6.2 pg/mL (<58.9)
[2024-03-24 19:59] LABS: Specific Gravity 1.029 (1.005-1.030); Sqamous Epithelial <5 /HPF (None Seen); Urine Bacteria None Seen /HPF (<20); Urine Bilirubin NEGATIVE (Negative); Urine Blood Negative (Negative); Urine Clarity Clear (Clear); Urine Color Colorless (Yellow); Urine Culture Reflex Order NOT NEEDED; Urine Glucose 4+ (Over) (Negative); Urine Ketones NEGATIVE (Negative); Urine Microscopic Reflex YN ORDER UMIC; Urine Nitrite NEGATIVE (Negative); Urine Protein TRACE (Negative); Urine RBC <5 /HPF (None Seen); Urine Urobilinogen Normal (Normal); Urine WBC <5 /HPF (<5); Urine pH 5.5 (5.0-7.0)
--- NOTE | 2024-03-24 19:59 | RAD REPORT ---
EXAM DESCRIPTION: Charisse Single View03/24/2024 7:44 pm CLINICAL HISTORY: Chest pain COMPARISON: January 2024 FINDINGS: The lungs appear clear of acute infiltrate. The heart is normal size IMPRESSION: No acute abnormalities displayed
[2024-03-24] MEDS ORDERED: PANTOPRAZOLE 40 MG INJ ONE (20:14)
--- NOTE | 2024-03-24 20:23 | ER ---
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 Coronavirus screen: Client denies ll1 travel out of the [place] in the last 14 days. At this time, the client does not indicate any symptoms associated with coronavirus-19. Ebola Screen: Patient denies travel to an Ebola-affected area in the 21 days before illness onset. Initial Sepsis Screen: Does the patient meet any 2 criteria? No. Patient's initial sepsis screen is negative. Does the patient have a suspected source of infection? No. Patient's initial sepsis screen is negative. Risk Assessment: Do you want to hurt yourself or someone else? Patient reports no desire to harm self or others. Onset of symptoms was March 24, 2024. 18:59 Method Of Arrival: Ambulatory ll1 18:59 Acuity: SUE 3 ll1 Triage Assessment: 19:00 General: Appears uncomfortable, Behavior is calm, cooperative, appropriate for age. ll1 Pain: Complains of pain in chest Pain currently is 7 out of 10 on a pain scale. Quality of pain is described as pressure. Cardiovascular: Reports chest pain. Historical: - Allergies: 18:58 No Known Allergies; ll1 - PMHx: 18:58 Diabetes - NIDDM; Hypercholesterolemia; Hypertension; Hypothyroidism; ll1 - PSHx: 18:58 Carotid sx; Stented artery; ll1 - Immunization history:: Adult Immunizations up to date. - Infectious Disease History:: Denies. - Social history:: Smoking status: Patient/guardian denies using tobacco. Screenin:01 [facility] ED Fall Risk Assessment (Adult) History of falling in the last 3 months, tm6 including since admission No falls in past 3 months (0 pts) Confusion or Disorientation No (0 pts) Intoxicated or Sedated No (0 pts) Impaired Gait No (0 pts) Mobility Assist Device Used No (0 pt) Altered Elimination No (0 pt) Score/Fall Risk Level 0 - 2 = Low Risk Oriented to surroundings, Maintained a safe environment, Educated pt \T\ family on fall prevention, incl call for assistance when getting out of bed. Abuse screen: Denies threats or abuse. Denies injuries from another. Nutritional screening: No deficits noted. Tuberculosis screening: No symptoms or risk factors identified. Assessment: 20:01 General: Appears in no apparent distress. Behavior is calm, cooperative. Pain: tm6 Complains of pain in chest Pain does not radiate. Pain began suddenly. Neuro: Level of Consciousness is awake, alert, obeys commands, Oriented to person, place, time, situation. Cardiovascular: Reports chest pain, Patient's skin is warm and dry. Rhythm is sinus rhythm. Respiratory: Airway is patent Respiratory effort is even, unlabored, Respiratory pattern is regular, symmetrical. GI: Abdomen is round non-distended. GI: No signs and/or symptoms were reported involving the gastrointestinal system. : No signs and/or symptoms were reported regarding the genitourinary system. EENT: No signs and/or symptoms were reported regarding the EENT system. Derm: No signs and/or symptoms reported regarding the dermatologic system. Musculoskeletal: No signs and/or symptoms reported regarding the musculoskeletal system. Vital Signs: 18:59 BP 148 / 83; Pulse 68; Resp 18; Temp 97.8; Pulse Ox 98% ; Weight 100.7 kg; Height 5 ft. ll1 6 in. ; Pain 7/10; 20:01 BP 141 / 60; Pulse 58; Pulse Ox 98% on R/A; Pain 4/10; tm6 18:59 Body Mass Index 35.83 (100.70 kg, 167.64 cm) ll1 18:59 Pain Scale: Adult ll1 20:01 Pain Scale: Adult tm6 [place] Coma Score: 20:07 Eye Response: spontaneous(4). Motor Response: obeys commands(6). Verbal Response: jose oriented(5). Total: 15. ED Course: 18:52 Patient arrived in ED. mg5 18:53 Rolando Pendleton MD is Attending Physician. jose 18:58 Arm band placed on Patient placed in an exam room, on a stretcher. ll1 19:00 Triage completed. ll1 19:09 Joan, Tawney, RN is Primary Nurse. tm6 19:35 Basic Metabolic Panel Sent. tm6 19:35 CBC with Diff Sent. tm6 19:35 LFT's Sent. tm6 19:35 Magnesium Sent. tm6 19:35 NT PRO-BNP Sent. tm6 19:35 Troponin HS Sent. tm6 19:35 EKG done, by ED staff, reviewed by Rolando Pendleton MD. Inserted saline lock: 20 gauge in tm6 right wrist, using aseptic technique. 19:46 XRAY Chest (1 view) In Process Unspecified. EDMS 19:50 Urinalysis w/ reflexes Sent. tm6 19:50 Lipase Sent. tm6 20:01 Patient has correct armband on for positive identification. Bed in low position. Call tm6 light in reach. Side rails up X 1. Provided Education on: use of call poole. Client placed on continuous cardiac and pulse oximetry monitoring. NIBP monitoring applied. clinical research monitor on. Pulse ox on. NIBP on. Door closed. Noise minimized. Warm blanket given. 20:14 Dyllan Mckeon MD is Hospitalizing Provider. jose 21:03 Chest Abd Pelvis Wo Con In Process Unspecified. EDMS 22:00 No provider procedures requiring assistance completed. Patient admitted, IV remains in tm6 place. O2 via room air. Administered Medications: 20:00 Drug: NS 0.9% IV 1000 ml IV at 75 ml/hr continuous Route: IV; Rate: 75 ml/hr; Site: tm6 right wrist; 20:00 Drug: Aspirin PO Chewable Tablet 81 mg PO once Route: PO; tm6 20:20 Drug: Pantoprazole IVP 40 mg IVP once Route: IVP; Site: right wrist; tm6 Medication: 20:01 VIS not applicable for this client. tm6 Outcome: 20:23 Decision to Hospitalize by Provider. jose 22:00 Admitted to ER Hold. Please see [facility] for further documentation. tm6 22:00 Condition: stable 22:00 Instructed on the need for admit, 03/25 12:05 Patient left the ED. iw Signatures: Dispatcher [employer] Rolando Barron MD MD cha Williams, Irene, RN RN iw Olivia Morales RN RN ll1 Inga Gaines mg5 Trang Franco RN RN tm6
--- NOTE | 2024-03-24 20:23 | EDPHYS ---
Physician Documentation [facility] Name: Farhan Boyer Jr Age: 68 yrs Sex: Male : 1955 Arrival Date: 03/24/2024 Time: 18:48 Bed 27 Private MD: ED Physician Rolando Pendleton HPI: 03/24 20:07 This 68 yrs old Male presents to ER via Ambulatory with complaints of Chest jose Pain. 20:07 The patient or guardian reports chest pain that is located primarily in the substernal jose area, epigastric area. Onset: just prior to arrival. The pain does not radiate. Historical: - Allergies: 18:58 No Known Allergies; ll1 - PMHx: 18:58 Diabetes - NIDDM; Hypercholesterolemia; Hypertension; Hypothyroidism; ll1 - PSHx: 18:58 Carotid sx; Stented artery; ll1 - Immunization history:: Adult Immunizations up to date. - Infectious Disease History:: Denies. - Social history:: Smoking status: Patient/guardian denies using tobacco. ROS: 20:07 Constitutional: Negative for fever, chills, and weight loss, Eyes: Negative for injury, jose pain, redness, and discharge, ENT: Negative for injury, pain, and discharge, Neck: Negative for injury, pain, and swelling, Respiratory: Negative for shortness of breath, cough, wheezing, and pleuritic chest pain, Back: Negative for injury and pain, : Negative for injury, bleeding, discharge, and swelling, MS/Extremity: Negative for injury and deformity, Skin: Negative for injury, rash, and discoloration, Neuro: Negative for headache, weakness, numbness, tingling, and seizure, Psych: Negative for depression, anxiety, suicide ideation, homicidal ideation, and hallucinations, Allergy/Immunology: Negative for hives, rash, and allergies, Endocrine: Negative for neck swelling, polydipsia, polyuria, polyphagia, and marked weight changes, Hematologic/Lymphatic: Negative for swollen nodes, abnormal bleeding, and unusual bruising, 20:07 Cardiovascular: Positive for chest pain, 20:07 Abdomen/GI: Positive for abdominal pain, nausea, abdominal cramps, Exam: 20:07 Constitutional: This is a well developed, well nourished patient who is awake, alert, jose and in no acute distress. Head/Face: Normocephalic, atraumatic. Eyes: Pupils equal round and reactive to light, extra-ocular motions intact. Lids and lashes normal. Conjunctiva and sclera are non-icteric and not injected. Cornea within normal limits. Periorbital areas with no swelling, redness, or edema. ENT: Nares patent. No nasal discharge, no septal abnormalities noted. Tympanic membranes are normal and external auditory canals are clear. Oropharynx with no redness, swelling, or masses, exudates, or evidence of obstruction, uvula midline. Mucous membranes moist. Neck: Trachea midline, no thyromegaly or masses palpated, and no cervical lymphadenopathy. Supple, full range of motion without nuchal rigidity, or vertebral point tenderness. No Meningismus. Chest/axilla: Normal chest wall appearance and motion. Nontender with no deformity. No lesions are appreciated. Cardiovascular: Regular rate and rhythm with a normal S1 and S2. No gallops, murmurs, or rubs. Normal PMI, no JVD. No pulse deficits. Respiratory: Lungs have equal breath sounds bilaterally, clear to auscultation and percussion. No rales, rhonchi or wheezes noted. No increased work of breathing, no retractions or nasal flaring. Back: No spinal tenderness. No costovertebral tenderness. Full range of motion. Male : Normal genitalia with no discharge or lesions. Skin: Warm, dry with normal turgor. Normal color with no rashes, no lesions, and no evidence of cellulitis. MS/ Extremity: Pulses equal, no cyanosis. Neurovascular intact. Full, normal range of motion. Neuro: Awake and alert, GCS 15, oriented to person, place, time, and situation. Cranial nerves II-XII grossly intact. Motor strength 5/5 in all extremities. Sensory grossly intact. Cerebellar exam normal. Normal gait. Psych: Awake, alert, with orientation to person, place and time. Behavior, mood, and affect are within normal limits. 20:07 ECG was reviewed by the Attending Physician. 20:07 Abdomen/GI: Inspection: abdomen appears normal, Bowel sounds: normal, Palpation: mild abdominal tenderness, in the right upper quadrant and left upper quadrant, Rectal exam: the exam is deferred, Liver: no appreciated palpable abnormalities, Hernia: Vital Signs: 18:59 BP 148 / 83; Pulse 68; Resp 18; Temp 97.8; Pulse Ox 98% ; Weight 100.7 kg; Height 5 ft. ll1 6 in. ; Pain 7/10; 20:01 BP 141 / 60; Pulse 58; Pulse Ox 98% on R/A; Pain 4/10; tm6 18:59 Body Mass Index 35.83 (100.70 kg, 167.64 cm) ll1 18:59 Pain Scale: Adult ll1 20:01 Pain Scale: Adult tm6 [place] Coma Score: 20:07 Eye Response: spontaneous(4). Motor Response: obeys commands(6). Verbal Response: jose oriented(5). Total: 15. MDM: 18:53 Patient medically screened. jose 20:11 Differential diagnosis: abnormal EKG, acute myocardial infarction, acute pericarditis, jose anxiety, chest wall pain, costochondritis, esophagitis, hiatal hernia, myocarditis, pancreatitis, pneumonia, pulmonary embolus, stable angina, unstable angina, appendicitis, bowel obstruction, coronary artery disease, diverticulitis, gastritis, GI Bleed, Hepatitis, Mesenteric ischemia or infarction, myocardia ischemia or infarction, non-specific abd pain, pancreatitis, Peptic Ulcer Disease, Peritonitis, Pyelonephritis, Ureterolithiasis, urinary tract infection. HEART Score: History: Slightly Suspicious (0), ECG: Normal (0), Age: > or = 65 years (2), Risk Factors: > or = 3 Risk factors for atherosclerotic disease (2), [Hypercholesterolemia] [Hypertension] [DM] [+ Family HX] [Obesity] Troponin: < or = 1 x Normal Limit (0). The patient was given aspirin in the Emergency Department. SANTY Risk Score: 1 - patient's age is greater or equal to 65 years, 1 - Three or more CAD risk factors, 1- Known CAD, TOTAL SCORE = 3. Data reviewed: vital signs, nurses notes, lab test result(s), EKG, radiologic studies, CT scan, plain films, ultrasound. Consideration of Admission/Observation Patient was admitted/placed on observation. Escalation of care including admission/observation considered. I considered the following discharge prescriptions or medication management in the emergency department Medications were administered in the Emergency Department. See MAR. Independent interpretation of the following test(s) in the Emergency Department EKG: See my EKG interpretation above. Test considered but Not performed: Ultrasound no abd usg. Historians other than the Patient: Family Member: family as well as pt well informed. Counseling: I had a detailed discussion with the patient and/or guardian regarding the historical points, exam findings, and any diagnostic results supporting the discharge/admit diagnosis, lab results, radiology results, the need for further work-up and treatment in the hospital. 03/24 18:55 Order name: Basic Metabolic Panel; Complete Time: 20:05 [facility] 03/24 18:55 Order name: CBC with Diff; Complete Time: 20:05 [facility] 03/24 18:55 Order name: LFT's; Complete Time: 20:05 [facility] 03/24 18:55 Order name: Magnesium; Complete Time: 20:05 [facility] 03/24 18:55 Order name: NT PRO-BNP; Complete Time: 20:05 [facility] 03/24 18:55 Order name: PT-INR; Complete Time: 20:05 [facility] 03/24 18:55 Order name: Troponin HS; Complete Time: 20:05 [facility] 03/24 18:55 Order name: Lipase; Complete Time: 20:05 [facility] 03/24 18:55 Order name: Urinalysis w/ reflexes; Complete Time: 20:05 [facility] 03/24 22:36 Order name: Urinalysis w/ reflexes [facility] 03/24 22:36 Order name: CBC with Automated Diff [facility] 03/24 22:36 Order name: CBC with Automated Diff [facility] 03/24 22:36 Order name: Comprehensive Metabolic Panel [facility] 03/24 22:36 Order name: Comprehensive Metabolic Panel [facility] 03/24 22:36 Order name: Troponin High Sensitivity [facility] 03/24 22:36 Order name: Troponin High Sensitivity [facility] 03/24 22:36 Order name: Troponin High Sensitivity [facility] 03/24 22:36 Order name: Troponin High Sensitivity [facility] 03/25 07:51 Order name: Glucose, Ancillary Testing [facility] 03/24 18:55 Order name: XRAY Chest (1 view); Complete Time: 20:05 [facility] 03/24 21:03 Order name: Chest Abd Pelvis Wo Con; Complete Time: 21:30 [facility] 03/24 18:55 Order name: EKG; Complete Time: 18:56 [facility] 03/24 22:36 Order name: CONS Physician Consult [facility] 03/24 18:55 Order name: Cardiac monitoring; Complete Time: 19:35 [facility] 03/24 18:55 Order name: EKG - Nurse/Tech; Complete Time: 19:35 [facility] 03/24 18:55 Order name: IV Saline Lock; Complete Time: 19:35 [facility] 03/24 18:55 Order name: Labs collected and sent; Complete Time: 19:35 [facility] 03/24 18:55 Order name: O2 Per Protocol; Complete Time: 19:35 [facility] 03/24 18:55 Order name: O2 Sat Monitoring; Complete Time: 19:35 [facility] EC:07 Rate is 61 beats/min. Rhythm is regular. QRS [place] is Normal. [place] interval is normal. QRS jose interval is normal. QT interval is normal. No Q waves. T waves are Normal. No ST changes noted. Clinical impression: NSR w/ Non-specific ST/T Changes and No evidence of ischemia. Interpreted by me. Reviewed by me. Administered Medications: 20:00 Drug: NS 0.9% IV 1000 ml IV at 75 ml/hr continuous Route: IV; Rate: 75 ml/hr; Site: tm6 right wrist; 20:00 Drug: Aspirin PO Chewable Tablet 81 mg PO once Route: PO; tm6 20:20 Drug: Pantoprazole IVP 40 mg IVP once Route: IVP; Site: right wrist; tm6 Disposition Summary: 03/24/24 20:23 Hospitalization Ordered Notes: Hospitalization Status: Inpatient Admission jose Provider: Dyllan Mckeon cha Condition: Stable jose Problem: new jose Symptoms: have improved jose Bed/Room Type: Standard jose Location: [facility] ER HOLD(03/24/24 20:42) rv1 Room Assignment: ERHOLD-(03/24/24 20:42) rv1 Diagnosis - Chest pain, unspecified jose - Functional dyspepsia jose - Type 2 diabetes mellitus with hyperglycemia jose - Epigastric abdominal tenderness jose - Obesity, unspecified jose Forms: - Medication Reconciliation Form jose - SBAR form jose - Leadership Thank You Letter jose Signatures: Dispatcher [employer] Rolando Barron MD MD cha Lewis, Lynsay, RN RN ll1 Magdalena Pickard rv1 Trang Franco RN RN tm6 Corrections: (The following items were deleted from the chart) 18:56 18:56 BASIC METABOLIC PANEL+C.LAB.BRZ ordered. EDMS EDMS 18:56 18:56 CBC+H.LAB.BRZ ordered. EDMS EDMS 18:56 18:56 HEPATIC FUNCTION+C.LAB.BRZ ordered. EDMS EDMS 18:56 18:56 MAGNESIUM+C.LAB.BRZ ordered. EDMS EDMS 18:56 18:56 PROBNP+C.LAB.BRZ ordered. EDMS EDMS 18:56 18:56 PROTIME (+INR)+COAG.LAB.BRZ ordered. EDMS EDMS 18:56 18:56 Troponin High Sensitivity+C.LAB.BRZ ordered. EDMS EDMS 18:56 18:56 LIPASE+C.LAB.BRZ ordered. EDMS EDMS 18:56 18:56 Urinalysis+U.LAB.BRZ ordered. EDMS EDMS 20:42 20:23 Telemetry/MedSurg (observation) jose rv1 20:42 20:23 jose rv1 20:54 20:07 Chest Abdomen Pelvis Wo Con+CT.RAD.BRZ ordered. EDMS EDMS
--- NOTE | 2024-03-24 21:18 | RAD REPORT ---
EXAM DESCRIPTION: CT - Chest Abd Pelvis Wo Con - 03/24/2024 9:04 pm CLINICAL HISTORY: Chest and abdominal pain COMPARISON: CT abdomen 2014 TECHNIQUE: Computed axial tomography of the chest, abdomen and pelvis was obtained. Oral contrast wa s given. IV contrast was not requested. All CT scans are performed using dose optimization technique as appropriate and may include automated exposure control or mA/KV adjustment according to patient size. FINDINGS: The evaluation of mediastinum, mónica, vessels and solid organs is limited secondary to the lack of IV contrast administration The lungs are clear No mediastinal or hilar lymphadenopathy is seen. Coronary arterial calcifications A pleural effusion is not present. A pericardial effusion is not seen. Cholecystectomy The liver, spleen, pancreas, adrenals and kidneys appear grossly normal Normal appendix There is no evidence of diverticulitis. 4 centimeter duodenal diverticulum IMPRESSION: No acute abnormality displayed
--- NOTE | 2024-03-24 21:19 | P.HP ---
Certification for Inpatient Patient admitted to: Observation With expected LOS: <2 Midnights Practitioner: I am a practitioner with admitting privileges, knowledge of patient current condition, hospital course, and medical plan of care. Services: Services provided to patient in accordance with Admission requirements found in Title 42 Section 412.3 of the Code of Federal Regulations Patient History Date of Service: 03/24/24 Reason for admission: CP History of Present Illness: 68 yrs old Male with past medical history of diabetes, hypertension, hyperlipidemia, hypothyroidism, carotid artery stenosis status post stent placement who was brought to ER with chest pain. Patient started having chest pain this afternoon after eating food. Located in retrosternal pressure-like feeling with no radiation. Associated with some shortness of breath. Denies any diaphoresis. No nausea vomiting or diarrhea. Has some epigastric discomfort as well. Denies any fever or chills. Patient was assessed in the ER and was admitted for further management of ACS rule out ; Allergies No Known Allergies Allergy (Verified 11/05/23 14:38) Home medications list reviewed: Yes Home Medications: Cholecalciferol (Vitamin D3) [Dialyvite Vitamin D3 Max] 1 cap PO SEECOM 05/13/23 Empagliflozin [Jardiance] 1 tab PO DAILY 05/13/23 Glimepiride 1 tab PO DAILY 05/13/23 Insulin Detemir [Levemir Flexpen] 5 units SQ DAILY 05/13/23 Levothyroxine Sodium 1 tab PO DAILY 05/13/23 Losartan Potassium 1 tab PO DAILY 05/13/23 Metformin HCl 1 tab PO BID 05/13/23 Latanoprostene Bunod [Vyzulta] 1 drop OPTH BEDTIME 05/14/23 Pilocarpine HCl 1 drop OPTH BID 05/14/23 Aspirin [Aspirin EC 81 MG] 81 mg PO DAILY 30 Days #30 tab 05/15/23 Atorvastatin Calcium [Lipitor] 40 mg PO BEDTIME 30 Days #30 tab 05/15/23 Clopidogrel Bisulfate [Plavix] 75 mg PO DAILY 30 Days #30 tab 05/15/23 Metoprolol Tartrate 0.5 tab PO BID 30 Days #30 tab 05/15/23 Cephalexin [Keflex] 500 mg PO Q6HR 5 Days #20 cap 02/07/24 Collagenase [Santyl Ointment*] 1 appl TOP DAILY 10 Days #1 tube 02/07/24 - Past Medical/Surgical History Diabetic: Yes Past Medical History: Reviewed- Non-Contributory -: Hypertension -: DM type [id number] -: Hyperlipidemia -: Hypothyroidism -: [place] -: CAD -: Carotid stenosis Past Surgical History: Reviewed- Non-Contributory -: Cataract Sx -: Gallbladder Sx -: Endarterectomy Psychosocial/ Personal History: Lives at home with family - Family History Family History: Reviewed- Non-Contributory - Family History Father -: Diabetes Mother -: Heart disease - Social History Smoking Status: Never smoker Alcohol use: No CD- Drugs: No Caffeine use: Yes Review of Systems 10-point ROS is otherwise unremarkable Physical Examination - Vital Signs Temperature: 98.2 F Blood Pressure: 136/72 Pulse: 78 Respirations: 18 Pulse Ox (%): 93 - Physical Exam General: Alert, In no apparent distress, Oriented x3, Obese HEENT: Atraumatic, Normocephalic Neck: Supple, JVD not distended Respiratory: Clear to auscultation bilaterally, Normal air movement Cardiovascular: No edema, Regular rate/rhythm, Normal S1 S2 Capillary refill: <2 Seconds Gastrointestinal: Soft and benign, W/out hepatosplenomegaly Musculoskeletal: No clubbing, No swelling Integumentary: No rashes, No breakdown Neurological: Normal speech, Normal strength at 5/5 x4 extr, Sensation intact, Cranial nerves 3-12 intact, Normal reflexes 2+ Lymphatics: No axilla or inguinal lymphadenopathy - Studies Laboratory Data (last 24 hrs) 03/24/24 03/24/24 03/24/24 19:28 19:28 19:28 WBC 8.70 Hgb 14.0 Hct 42.3 Plt Count 182 PT 11.8 INR 1.07 Sodium 136 Potassium 4.2 BUN 15 Creatinine 1.06 Glucose 240 H Magnesium 2.0 Total Bilirubin 0.4 AST < 10 L ALT 24 Alkaline Phosphatase 108 Lipase 37 Assessment and Plan - Problems (Diagnosis) (1) Chest pain Current Visit: No Status: Acute Plan: Unstable angina Will trend cardiac enzymes Will monitor telemetry Started on aspirin and statin EKG did not show any acute changes suggestive of ischemia Patient denies any chest pain at the time of interview Will get an echocardiogram Cardiology consult Hypertension Antihypertensives titrated Continue home medications and titrate as needed Hyperlipidemia Continue statin Diabetes Insulin sliding scale Accu-Chek before every meal and at bedtime GI/DVT prophylaxis Advanced directive full code Discharge Plan: Home Plan to discharge in: 24 Hours - Advance Directives Does patient have a Living Will: No Does patient have a Durable POA for Healthcare: No - Code Status/Comfort Care Code Status: Full Code Time Spent Managing Pts Care (In Minutes): 48
[2024-03-24] MEDS ORDERED: ACETAMINOPHEN 325 MG TABLET PO PRN (22:30)
[2024-03-24] MEDS ORDERED: ONDANSETRON 4 MG/2 ML VIAL IV PRN (22:30)
[2024-03-24] MEDS ORDERED: D50W 25 GM/50 ML SYRINGE IV PRN (22:40)
[2024-03-24] MEDS ORDERED: GLUCAGON 1 MG/VIAL IM PRN (22:40)
[2024-03-24] MEDS ORDERED: D10W 125 ML IV PRN (22:48)
[2024-03-24 23:09] VITALS: BMI 35.8
[2024-03-25 05:22] LABS: Absolute Basophils 0.1 K/uL (0-0.5); Absolute Eosinophils 0.2 K/uL (0-0.5); Absolute Lymphocytes (CBC) 2.1 K/uL (0.7-4.9); Absolute Monocytes 0.7 K/uL (0.1-1.3); Absolute Neutrophil 6.3 K/uL (1.8-8.0); Basophils % 0.7 % (0-1.3); Eosinophils % 1.8 % (0-4.4); Hematocrit 40.3 % (39.6-49.0); Hemoglobin 13.5 g/dL (13.6-17.9); Lymphocytes % 22.2 % (15.3-44.8); MCH 30.5 pg (27.0-35.0); MCHC 33.6 g/dL (32.0-36.0); MCV 90.9 fL (80-100); MPV 11.2 fL (7.6-11.3); Monocytes % 7.4 % (3.3-12.3); Neutrophils % 67.9 % (41.7-73.7); Platelets 161 thou/uL (152-406); RBC Red Blood Cell Count 4.43 M/uL (4.33-5.43); Red Cell Distribution Width 13.9 % (12.1-15.2)
[2024-03-25 05:37] LABS: ALT/SGPT 19 U/L (16-61); Albumin 3.2 g/dL (3.4-5.0); Alkaline Phosphatase 95 U/L (45-117); Anion Gap 8.7 mEq/L (5.0-15.0); BUN Blood Urea Nitrogen 14 mg/dL (7-18); Bicarbonate 28 mEq/L (21-32); Bilirubin Total 0.3 mg/dL (0.2-1.0); Globulin 3.3 g/dL (2.3-3.5); Glomerular Filtration Rate 96 ml/min (=/>90); Glucose Level 98 mg/dL (74-106); Potassium 3.7 mEq/L (3.5-5.1); Protein, Total 6.5 g/dL (6.4-8.2); Sodium Level 141 mEq/L (136-145)
[2024-03-25 05:38] LABS: AST/SGOT < 10 U/L (15-37)
[2024-03-25 06:29] VITALS: TEMP 96.8
[2024-03-25] MEDS: INSULIN REGULAR (HUMAN) 100 UNIT/ML SQ SCH (07:30)
[2024-03-25 07:44] VITALS: BP 151/58
[2024-03-25] MEDS: POTASSIUM CL SA 10 MEQ TAB PO ONE (08:00)
[2024-03-25] MEDS ORDERED: POTASSIUM CL SA 10 MEQ TAB PO ONE (08:27)
[2024-03-25] MEDS ORDERED: ASPIRIN 81 MG CHEWABLE TABLET ONE (08:27)
[2024-03-25] MEDS ORDERED: ENOXAPARIN 40 MG/0.4 ML SQ ONE (08:27)
[2024-03-25] MEDS: ASPIRIN EC 81 MG TAB PO SCH (08:54)
[2024-03-25] MEDS: ENOXAPARIN 40 MG/0.4 ML SQ SCH (08:54)
--- NOTE | 2024-03-25 10:30 | P.CNS ---
Date of Consult: 03/25/24 Chief Complaint: CP History of Present Illness: Patient with PMH of CAD s/p PCI LAD 1 year ago, Carotid A disease s/p left endarterectomy few months ago, HLD and DM presented with chest pain yesterday after eating, described as epigastric no radiation after eating spicy food, no other cardiac symptoms. Allergies No Known Allergies Allergy (Verified 11/05/23 14:38) Home Medications: Aspirin [Aspirin EC] 81 mg PO DAILY 03/25/24 Atorvastatin Calcium 40 mg PO BEDTIME 03/25/24 Clopidogrel Bisulfate [Clopidogrel] 75 mg PO DAILY 03/25/24 Empagliflozin [Jardiance] 25 mg PO DAILY 03/25/24 Glimepiride 4 mg PO DAILY 03/25/24 Levothyroxine [Synthroid*] 25 mcg PO DAILY 03/25/24 Losartan Potassium 50 mg PO DAILY 03/25/24 Metformin HCl 1,000 mg PO DAILY 03/25/24 Metoprolol Tartrate 12.5 mg PO BID 03/25/24 Mv-Mn/Iron/Folic Acid/Herb 190 [Vitamin D3 Complete Caplet] 1 tab PO Q7D 03/25/24 - Past Medical/Surgical History Diabetic: Yes -: Hypertension -: DM type [id number] -: Hyperlipidemia -: Hypothyroidism -: [place] -: CAD -: Carotid stenosis -: Cataract Sx -: Gallbladder Sx -: Endarterectomy Psychosocial/ Personal History: Lives at home with family - Family History Father Medical History: Diabetes Mother Medical History: Heart disease - Social History Smoking Status: Unknown if ever smoked Alcohol use: No CD- Drugs: No Caffeine use: Yes Place of Residence: Home Review of Systems 10-point ROS is otherwise unremarkable Physical Examination Temp Pulse Resp BP Pulse Ox 96.8 F 55 18 151/58 H 100 03/25/24 04:00 03/25/24 07:30 03/25/24 07:30 03/25/24 07:30 03/25/24 07:30 General: Alert, In no apparent distress HEENT: Atraumatic, PERRLA, Mucous membr. moist/pink, EOMI, Sclerae nonicteric Neck: Supple, 2+ carotid pulse no bruit, No LAD, Without JVD or thyroid abnormality Respiratory: Clear to auscultation bilaterally, Normal air movement Cardiovascular: Regular rate/rhythm, Normal S1 S2 Gastrointestinal: Normal bowel sounds, No tenderness Musculoskeletal: No tenderness Integumentary: No rashes Neurological: Normal gait, Normal speech, Normal tone, Normal affect Lymphatics: No axilla or inguinal lymphadenopathy Laboratory Data (last 24 hrs) 03/24/24 03/24/24 03/24/24 19:28 19:28 19:28 WBC 8.70 Hgb 14.0 Hct 42.3 Plt Count 182 PT 11.8 INR 1.07 Sodium 136 Potassium 4.2 BUN 15 Creatinine 1.06 Glucose 240 H Magnesium 2.0 Total Bilirubin 0.4 AST < 10 L ALT 24 Alkaline Phosphatase 108 Lipase 37 - Problems (1) Chest pain Current Visit: No Status: Acute Plan: atypical, epigastric in nature after eating spicy food, pain is resolved, no EKG changes. troponin negative x 3. Patient is scheduled for outpatient stress test on saturday. ok to discharge. (2) Essential hypertension Current Visit: No Status: Acute Plan: Patient did not get his BP medications this morning, please resume home medications. (3) Hyperlipidemia Current Visit: No Status: Acute Plan: continue Lipitor 40 mg daily.
--- NOTE | 2024-03-25 10:47 | P.DS ---
Admission Date: 03/24/24 Discharge Date: 03/25/24 Disposition: ROUTINE DISCHARGE Discharge Condition: FAIR Reason for Admission: CP - Problems (1) Chest pain Current Visit: No Status: Acute (2) Diabetes mellitus type 2 in obese Current Visit: No Status: Acute (3) Essential hypertension Current Visit: No Status: Acute (4) Hyperlipidemia Current Visit: No Status: Acute (5) Hypothyroidism Current Visit: No Status: Acute Brief History of Present Illness: 68 yrs old Male with past medical history of diabetes, hypertension, hyperlipidemia, hypothyroidism, carotid artery stenosis status post stent placement who was brought to ER with chest pain. Patient started having chest pain this afternoon after eating food. Located in retrosternal pressure-like feeling with no radiation. Associated with some shortness of breath. Denies any diaphoresis. No nausea vomiting or diarrhea. Has some epigastric discomfort as well. Denies any fever or chills. Patient was assessed in the ER and was admitted for further management of ACS rule out ; Hospital Course: Patient was placed on observation on the medical floor, troponin trended negative. Patient was chest pain-free during the hospital stay. He denies any shortness of breath or palpitation. Patient reported his symptoms occurred right after eating spicy food and had epigastric pain as well. Previously evaluated by cardiology and deemed stable for discharge. ACS ruled out. Patient mentioned he has follow-up with cardiology this week. Vital Signs/Physical Exam: Temp Pulse Resp BP Pulse Ox 96.8 F 55 18 151/58 H 100 03/25/24 04:00 03/25/24 07:30 03/25/24 07:30 03/25/24 07:30 03/25/24 07:30 General: Alert, In no apparent distress, Oriented x3 HEENT: Mucous membr. moist/pink, Sclerae nonicteric Neck: Supple, JVD not distended Respiratory: Clear to auscultation bilaterally, Normal air movement Cardiovascular: No edema, Regular rate/rhythm, Normal S1 S2 Gastrointestinal: Normal bowel sounds, Soft and benign, Non-distended, No tenderness Musculoskeletal: No swelling, No tenderness Integumentary: No rashes, No cyanosis Neurological: Normal strength at 5/5 x4 extr Laboratory Data at Discharge: WBC 9.30 thou/uL (4.3-10.9) 03/25/24 05:05 Hgb 13.5 g/dL (13.6-17.9) L 03/25/24 05:05 Hct 40.3 % (39.6-49.0) 03/25/24 05:05 Plt Count 161 thou/uL (152-406) 03/25/24 05:05 PT 11.8 SECONDS (9.4-12.5) 03/24/24 19:28 INR 1.07 03/24/24 19:28 Sodium 141 mEq/L (136-145) D 03/25/24 05:05 Potassium 3.7 mEq/L (3.5-5.1) 03/25/24 05:05 BUN 14 mg/dL (7-18) 03/25/24 05:05 Creatinine 0.77 mg/dL (0.70-1.30) 03/25/24 05:05 Glucose 98 mg/dL (74-106) 03/25/24 05:05 Magnesium 2.0 mg/dL (1.6-2.4) 03/24/24 19:28 Total Bilirubin 0.3 mg/dL (0.2-1.0) 03/25/24 05:05 AST < 10 U/L (15-37) L 03/25/24 05:05 ALT 19 U/L (16-61) 03/25/24 05:05 Alkaline Phosphatase 95 U/L (45-117) 03/25/24 05:05 Lipase 37 U/L (13-75) 03/24/24 19:28 Home Medications: Aspirin [Aspirin EC] 81 mg PO DAILY 03/25/24 Atorvastatin Calcium 40 mg PO BEDTIME 03/25/24 Clopidogrel Bisulfate [Clopidogrel] 75 mg PO DAILY 03/25/24 Empagliflozin [Jardiance] 25 mg PO DAILY 03/25/24 Glimepiride 4 mg PO DAILY 03/25/24 Levothyroxine [Synthroid*] 25 mcg PO DAILY 03/25/24 Losartan Potassium 50 mg PO DAILY 03/25/24 Metformin HCl 1,000 mg PO DAILY 03/25/24 Metoprolol Tartrate 12.5 mg PO BID 03/25/24 Mv-Mn/Iron/Folic Acid/Herb 190 [Vitamin D3 Complete Caplet] 1 tab PO Q7D 03/25/24 Diet: ADA Activity: Ad ana Followup: NONE,NONE [Primary Care Provider] - Raslan,Parker, MD [ACTIVE - CAN ADMIT] - Time spent managing pt's care (in minutes): 26
[2024-03-25 12:42] VITALS: O2SAT 98
--- NOTE | 2024-03-25 13:49 | EKG ---
Test Date: 2024-03-24 Test Time: 19:16:18 Newspaper Illustrator: Eleazar MEASUREMENT RESULTS: Intervals: Rate: 61 MS: 124 QRSD: 90 QT: 410 QTc: 412 [place]: P: 45 MS: 124 QRS: 45 T: 33 INTERPRETIVE STATEMENTS: Normal sinus rhythm Normal ECG Compared to ECG 02/05/2024 14:04:09 No significant changes Electronically Signed On 03-25-24 13:47:52 CDT by Parker Charlton
[2024-03-25] MEDS ORDERED: ATORVASTATIN 40 MG TAB PO SCH (21:00)
== END 2024-03-25 11:30 | disposition home or self-care (01) ==
LOC: ER 18:48 → ERHOLD 22:30
PROVIDERS: ADMIT Family Medicine; ATTEND Internal Medicine
DX: R07.9 Chest pain, unspecified (principal); I25.10 Atherosclerotic heart disease of native coronary artery without angina pectoris; I10 Essential (primary) hypertension; E78.5 Hyperlipidemia, unspecified; E03.9 Hypothyroidism, unspecified; E66.9 Obesity, unspecified; Z95.5 Presence of coronary angioplasty implant and graft; Z79.82 Long term (current) use of aspirin; Z68.35 Body mass index [BMI] 35.0-35.9, adult
CPT/HCPCS: 93005; 85025 ×2; 81001; 80048; 36415; 83735; 85610; 82947; 80076; 84484 ×3; 83690; 80053; 83880; 71250; 74176; 71045; C9113; J1650; J7030; 96374; 99285; G0378